=== PATIENT | male | born 1955 | race Caucasian/White ===

== ENCOUNTER → 2018-01-30 16:05 | Outpatient (CLI) | payer OTHER, SELFPAY ==
[2018-01-30 17:23] LABS: Absolute Lymphocyte Count 1.33 X10^3/ul (0.83-4.51); Absolute Neutrophil Count 3.2 X10^3/uL (2.0-7.7); Basophil# 0.02 X10^3/uL; Basophil% 0.4 % (0-1); Eosinophil# 0.04 X10^3/uL; Eosinophils% 0.8 % (0-5); Hematocrit 43.5 % (40-54); Hemoglobin 14.6 g/dl (13.0-16.5); Lymphocyte # 1.33 X10^3/ul (4.0); Lymphocyte % 27.1 % (19-41); Mean Corp Hgb Conc 33.6 g/gl (32-36); Mean Corpuscular Hgb 30.2 pg (27.0-32.0); Mean Corpuscular Volume 90.1 fL (80-94); Mean Platelet Vol. 10.8 fl (6.2-12.0); Monocyte# 0.32 X10^3/uL; Monocyte% 6.5 % (0-10); Neutrophil % 65.2 % (47-70); Platelet Count 146 K/mm3 (150-450); RBC Distribution Width CV 12.7 % (11.6-14.6); RBC Distribution Width SD 41.4 fl (35.1-43.9); Red Blood Count 4.83 M/mm3 (4.6-6.2); White Blood Count 4.9 K/mm3 (4.4-11.0)
[2018-01-30 17:30] LABS: ALB/GLOB Ratio 1.3 RATIO (0.9-2.4); AST(SGOT) 13 U/L (15-37); Alanine Aminotransfer ALT/SGPT 22 U/L (16-61); Albumin, Serum 3.9 g/dL (3.2-5.0); Alkaline Phosphatase 53 U/L (45-117); Anion Gap 5 (5-15); BUN 20 mg/dL (7-18); BUN/Creat Ratio 17.4 RATIO (10-20); Calcium,Total 8.8 mg/dL (8.5-10.1); Chloride 106 mmol/L (98-107); Creatinine, Serum 1.15 mg/dL (0.70-1.30); EST Glomerular Filtration Rate 69 mL/min (>60); Est Glom Filt Rate - Afr Amer 83 mL/min (>60); Globulin 3.1 g/dL (2.2-4.2); Glucose 87 mg/dL (74-106); Sodium Level 142 mmol/L (136-145)
[2018-01-30 17:40] LABS: POSITIVE COUNT NO; POSITIVE DIFFERENTIAL NO; POSITIVE MORPHOLOGY NO
[2018-01-30 17:54] LABS: Erythrocyte Sedimentation Rate < 1 mm/hr (0-20)
== END ==
PROVIDERS: Family Provider Family Medicine; PCP Family Medicine; Referring Provider Surgery; Visit Provider Surgery
DX: K62.5 Hemorrhage of anus and rectum (principal); R10.9 Unspecified abdominal pain
CPT/HCPCS: 36415; 80053; 85025; 85652

== ENCOUNTER 2018-02-04 09:54 | Day surgery (SDC) | payer OTHER, SELFPAY ==
[2018-02-04 10:42] VITALS: BP 127/82; PULSE 65; RESP 16; TEMP 36.4; O2SAT 100; BMI 24.6
[2018-02-04 11:48] VITALS: BP 110/70; BP 127/82; PULSE 60; RESP 14; TEMP 36.1; O2SAT 98
--- NOTE | 2018-02-04 11:51 | OP.ENDO_ITS ---
Patient Name: Talon Vail Procedure Date: 02/04/2018 11:11 AM Date of : 1955 Age: 62 Procedure: Colonoscopy Indications: Rectal bleeding Providers: Saad Mullen MD Medicines: See the Anesthesia note for documentation of the administered medications Patient Profile: Last Colonoscopy: 2010. Complications: No immediate complications. Procedure: Pre-Anesthesia Assessment: - Prior to the procedure, a History and Physical was performed, and patient medications and allergies were reviewed. The patient's tolerance of previous anesthesia was also reviewed. The risks and benefits of the procedure and the sedation options and risks were discussed with the patient. All questions were answered, and informed consent was obtained. Prior Anticoagulants: The patient has taken no previous anticoagulant or antiplatelet agents. ASA Grade Assessment: I - A normal, healthy patient. After reviewing the risks and benefits, the patient was deemed in satisfactory condition to undergo the procedure. After I obtained informed consent, the scope was passed under direct vision. Throughout the procedure, the patient's blood pressure, pulse, and oxygen saturations were monitored continuously. The pediatric colonoscope was introduced through the anus and advanced to the cecum, identified by appendiceal orifice and ileocecal valve. The colonoscopy was performed with moderate difficulty due to a tortuous colon. Successful completion of the procedure was aided by changing the patient to a supine position. The patient tolerated the procedure well. The quality of the bowel preparation was good. The ileocecal valve was photographed. Scope In: 11:26:13 AM Scope Withdrawal Time 0 hours 6 minutes 28 seconds Scope Out: 11:44:49 AM Total Procedure Duration Time 0 hours 18 minutes 36 seconds Findings: The digital rectal exam findings include non-thrombosed external hemorrhoids, non-thrombosed internal hemorrhoids and internal hemorrhoids that prolapse with straining, but require manual replacement into the anal canal (Grade III). Pertinent negatives include normal prostate (size, shape, and consistency). Multiple diverticula were found in the sigmoid colon and descending colon. The exam was otherwise without abnormality. Impression: - Non-thrombosed external hemorrhoids, non-thrombosed internal hemorrhoids and internal hemorrhoids that prolapse with straining, but require manual replacement into the anal canal (Grade III) found on digital rectal exam. - Diverticulosis in the sigmoid colon and in the descending colon. - The examination was otherwise normal. - No specimens collected. Recommendation: - Discharge patient to home. - Resume regular diet. - Continue present medications. - Repeat colonoscopy in 10 years for screening purposes. - Return to my office at appointment to be scheduled. - Refer to surgeon for a hemorrhoidectomy in 1 month. Procedure Code(s): --- Professional --- 59030, Colonoscopy, flexible; diagnostic, including collection of specimen(s) by brushing or washing, when performed (separate procedure) Diagnosis Code(s): --- Professional --- K64.2, Third degree hemorrhoids K64.4, Residual hemorrhoidal skin tags K62.5, Hemorrhage of anus and rectum K57.30, Diverticulosis of large intestine without perforation or abscess without bleeding CPT copyright 2017 [employer]. All rights reserved. The codes documented in this report are preliminary and upon supercharger mechanic review may be revised to meet current compliance requirements. Saad Mullen MD 02/04/2018 11:50:58 AM This report has been signed electronically. Number of Addenda: 0 Note Initiated On: 02/04/2018 11:11 AM
[2018-02-04 11:55] VITALS: BP 103/69; BP 127/82; PULSE 65; RESP 16; O2SAT 99
[2018-02-04 12:00] VITALS: BP 105/75; BP 127/82; PULSE 60; RESP 16; O2SAT 99
[2018-02-04 12:05] VITALS: BP 117/75; BP 127/82; PULSE 58; RESP 16; TEMP 36.2; O2SAT 99
[2018-02-04 12:33] VITALS: BP 127/82
== END 2018-02-04 12:34 | disposition home or self-care (01) ==
LOC: EN 09:55 → AC 10:30
PROVIDERS: Family Provider Family Medicine; PCP Family Medicine; Referring Provider Surgery; Visit Provider Surgery
PROC: 0DJD8ZZ Inspection of Lower Intestinal Tract, Via Natural or Artificial Opening Endoscopic (ICD-10-PCS; CPT 45378; principal; 2018-02-04 11:10)
DX: K64.2 Third degree hemorrhoids (principal); K64.4 Residual hemorrhoidal skin tags; K57.30 Diverticulosis of large intestine without perforation or abscess without bleeding; K21.9 Gastro-esophageal reflux disease without esophagitis; Z80.0 Family history of malignant neoplasm of digestive organs; Z85.830 Personal history of malignant neoplasm of bone
CPT/HCPCS: 45378; J7120

== ENCOUNTER → 2019-03-06 | Outpatient (CLI) | payer OTHER, SELFPAY ==
[2019-03-06 17:39] LABS: Hemoglobin 15.6 g/dL (13.0-16.5); Mean Corp Hgb Conc 33.2 g/dL (32-36); Mean Corpuscular Hgb 29.9 pg (27.0-32.0); Mean Corpuscular Volume 90.2 fL (80-94); Mean Platelet Vol. 10.2 fl (6.2-12.0); Platelet Count 160 K/mm3 (150-450); RBC Distribution Width CV 11.4 % (11.6-14.6); RBC Distribution Width SD 37.6 fl (35.1-43.9); Red Blood Count 5.21 M/mm3 (4.6-6.2); White Blood Count 5.9 K/mm3 (4.4-11.0)
--- NOTE | 2019-03-06 17:50 | RAD_ITS ---
STUDY: X-RAY - PELVIS AND RIGHT HIP REASON FOR EXAM: Male, 63 years old. Bone CA, thrombocytopenia TECHNIQUE: 3 views of the pelvis and hip. COMPARISON: None. FINDINGS: There is a non-specific bowel gas pattern. Normal visualized soft tissue structures. Normal bilateral iliac wings, sacroiliac joints and visualized sacrum. Normal bilateral superior and inferior pubic rami. Normal pubic symphysis. Normal bilateral ischial tuberosities. Normal visualized femoral head. Normal acetabulum. Normal hip joint. RAD/HIP, UNI W/ Pelvis 2-3 Views IMPRESSION: Normal x-ray examination of the pelvis and hip. Electronically Signed: Marcus Charlton DO at 18:06 EST Tel [phone], Service support ,
[2019-03-06 18:08] LABS: Alanine Aminotransfer ALT/SGPT 20 U/L (16-61); Bilirubin, Direct 0.13 mg/dL (0.00-0.30)
== END | disposition home or self-care (01) ==
PROVIDERS: Family Provider Family Medicine; PCP Family Medicine; Referring Provider Family Medicine; Visit Provider Family Medicine
DX: D69.6 Thrombocytopenia, unspecified (principal); C41.9 Malignant neoplasm of bone and articular cartilage, unspecified
CPT/HCPCS: 36415; 73502; 82248; 84460; 85027

== ENCOUNTER → 2020-10-27 16:04 | Outpatient (CLI) | payer OTHER, SELFPAY ==
[2020-10-27 16:08] LABS: Lyme Ab Screen Interpretation REF LAB
[2020-10-27 17:43] LABS: Absolute Lymphocyte Count 1.08 X10^3/uL (0.83-4.51); Absolute Neutrophil Count 2.4 X10^3/uL (2.0-7.7); Basophil# 0.02 X10^3/uL; Basophil% 0.5 % (0-1); Eosinophil# 0.05 X10^3/uL; Eosinophils% 1.3 % (0-5); Hematocrit 42.6 % (40-54); Hemoglobin 14.6 g/dL (13.0-16.5); Lymphocyte # 1.08 X10^3/ul (0.83-4.51); Lymphocyte % 27.7 % (19-41); Mean Corp Hgb Conc 34.3 g/dL (32-36); Mean Corpuscular Hgb 30.3 pg (27.0-32.0); Mean Corpuscular Volume 88.4 fL (80-94); Mean Platelet Vol. 10.5 fl (6.2-12.0); Monocyte# 0.31 X10^3/uL; Monocyte% 7.9 % (0-10); NRBC Flagged by Analyzer 0 % (0-5); Neutrophil # 2.44 X10^3/uL (2.7-7.7); Neutrophil % 62.6 % (47-70); Platelet Count 141 K/mm3 (150-450); RBC Distribution Width CV 12.1 % (11.6-14.6); RBC Distribution Width SD 39.7 fl (35.1-43.9); Red Blood Count 4.82 M/mm3 (4.6-6.2); White Blood Count 3.9 K/mm3 (4.4-11.0)
[2020-10-27 18:07] LABS: ALB/GLOB Ratio 1.3 RATIO (0.9-2.4); AST(SGOT) 20 U/L (15-37); Alanine Aminotransfer ALT/SGPT 21 U/L (16-61); Albumin, Serum 3.9 g/dL (3.2-5.0); Alkaline Phosphatase 59 U/L (45-117); Anion Gap 6 (5-15); BUN 19 mg/dL (7-18); BUN/Creat Ratio 16.5 RATIO (10-20); Calcium,Total 8.7 mg/dL (8.5-10.1); Chloride 106 mmol/L (98-107); Creatinine, Serum 1.15 mg/dL (0.70-1.30); EST Glomerular Filtration Rate 68 mL/min (>60); Est Glom Filt Rate - Afr Amer 83 mL/min (>60); Globulin 2.9 g/dL (2.2-4.2); Glucose 99 mg/dL (74-106); Potassium 3.8 mmol/L (3.5-5.1); Protein, Total 6.8 g/dL (6.4-8.2); Sodium Level 141 mmol/L (136-145)
[2020-10-29 18:47] LABS: Lyme Scn Total Ab w/Rflx <0.91 ISR (0.00-0.90)
== END ==
PROVIDERS: Visit Provider Family Medicine
DX: T14.8XXA Other injury of unspecified body region, initial encounter (principal)
CPT/HCPCS: 36415; 80053; 85025; 86618

== ENCOUNTER → 2021-09-16 | Outpatient (CLI) | payer OTHER, SELFPAY ==
[2021-09-16 17:42] LABS: Absolute Lymphocyte Count 1.13 X10^3/uL (0.83-4.51); Absolute Neutrophil Count 2.2 X10^3/uL (2.0-7.7); Basophil# 0.02 X10^3/uL; Basophil% 0.6 % (0-1); Eosinophil# 0.04 X10^3/uL; Eosinophils% 1.1 % (0-5); Hematocrit 41.8 % (40-54); Hemoglobin 14.4 g/dL (13.0-16.5); Lymphocyte # 1.13 X10^3/ul (0.83-4.51); Lymphocyte % 31.1 % (19-41); Mean Corp Hgb Conc 34.4 g/dL (32-36); Mean Corpuscular Hgb 30.6 pg (27.0-32.0); Mean Corpuscular Volume 88.7 fL (80-94); Mean Platelet Vol. 10.6 fl (6.2-12.0); Monocyte# 0.21 X10^3/uL; Monocyte% 5.8 % (0-10); NRBC Flagged by Analyzer 0 % (0-5); Neutrophil # 2.22 X10^3/uL (2.7-7.7); Neutrophil % 61.1 % (47-70); Platelet Count 145 K/mm3 (150-450); RBC Distribution Width CV 12.3 % (11.6-14.6); RBC Distribution Width SD 40.3 fl (35.1-43.9); Red Blood Count 4.71 M/mm3 (4.6-6.2); White Blood Count 3.6 K/mm3 (4.4-11.0)
[2021-09-16 18:07] LABS: ALB/GLOB Ratio 1.4 RATIO (0.9-2.4); AST(SGOT) 14 U/L (15-37); Alanine Aminotransfer ALT/SGPT 20 U/L (16-61); Albumin, Serum 3.9 g/dL (3.2-5.0); Alkaline Phosphatase 51 U/L (45-117); Anion Gap 6 (5-15); BUN 16 mg/dL (7-18); BUN/Creat Ratio 14.3 RATIO (10-20); Calcium,Total 8.7 mg/dL (8.5-10.1); Chloride 109 mmol/L (98-107); Cholesterol 133 mg/dL (200); Creatinine, Serum 1.12 mg/dL (0.70-1.30); EST Glomerular Filtration Rate 70 mL/min (>60); Est Glom Filt Rate - Afr Amer 85 mL/min (>60); Globulin 2.8 g/dL (2.2-4.2); Glucose 89 mg/dL (74-106); High Density Lipoprotein 45 mg/dL; PSA,Total - Annual Screen 1.63 ng/mL (0.00-4.00); Potassium 3.7 mmol/L (3.5-5.1); Protein, Total 6.7 g/dL (6.4-8.2); Sodium Level 142 mmol/L (136-145); Triglycerides 87 mg/dL; Very Low Density Lipoprotein 17 mg/dL (5-40)
== END | disposition home or self-care (01) ==
LOC: MTLAB 16:06
PROVIDERS: PCP Family Medicine; Referring Provider Family Medicine; Visit Provider Family Medicine
DX: D69.6 Thrombocytopenia, unspecified (principal); Z13.220 Encounter for screening for lipoid disorders; Z12.5 Encounter for screening for malignant neoplasm of prostate
CPT/HCPCS: 36415; 80053; 80061; 84153; 85025; G0103

== ENCOUNTER → 2021-09-20 | Outpatient (CLI) | payer OTHER, SELFPAY ==
--- NOTE | 2021-09-20 16:08 | RAD_ITS ---
STUDY: X-RAY CHEST REASON FOR EXAM: Male, 66 years old. Asbestos exposure. TECHNIQUE: PA and lateral views of the chest. COMPARISON: None. FINDINGS: No focal infiltrates or effusions. No pneumothorax. Lungs are hyperinflated. No pleural plaques. No densities to suggest chronic interstitial lung disease. Normal size heart. Normal mediastinum and christophe. Normal visualized pulmonary arteries. Normal visualized aortic arch and descending thoracic aorta. Normal visualized thoracic spine. Postsurgical changes right shoulder. There is no demonstrated abnormality of the visualized soft tissue structures of the upper abdomen. RAD/Chest PA and Lateral IMPRESSION: Hyperinflation. No focal infiltrates or effusions. No pleural plaques. Electronically Signed: Jarrell Still MD at 5:48 EDT Reading Location ID and State: [id number] / , Service support ,
== END | disposition home or self-care (01) ==
LOC: MTRAD 16:06
PROVIDERS: PCP Family Medicine; Referring Provider Family Medicine; Visit Provider Family Medicine
DX: Z77.090 Contact with and (suspected) exposure to asbestos (principal)
CPT/HCPCS: 71046

== ENCOUNTER 2022-09-24 07:01 | Observation (INO) | payer OTHER, MEDICARE, SELFPAY ==
[2022-09-24] VITALS (10 sets, daily range): BP systolic 113–144; BP diastolic 75–87; PULSE 50–84; RESP 14–18; TEMP 35.2–36.8; O2SAT 96–100; BMI 25.9
--- NOTE | 2022-09-24 07:22 | EKG12_ITS ---
Test Reason : DIZZINESS Blood Pressure : / mmHG Vent. Rate : 055 BPM Atrial Rate : 055 BPM P-R Int : 150 ms QRS Dur : 088 ms QT Int : 450 ms P-R-T Axes : 064 036 050 degrees QTc Int : 430 ms Sinus bradycardia Otherwise normal ECG Confirmed by SEDRICK LOW, ORION ([id number]), metropolitan editor MANN CABRERA ([id number]) on 09/25/2022 11:37:03 AM Referred By: Confirmed By:ORION DUBOSE MD
--- NOTE | 2022-09-24 07:24 | EDS_ITS ---
HPI History of Present Illness Chief Complaint: Dizziness Narrative Narrative: 67-year-old male who denies significant past medical history presents with his because of dizziness since this morning. He states that over the last 5 days, he has had intermittent episodes of the room spinning and dizziness. States he had blurred vision out of both eyes with this. He has been practicing yoga and 5 days ago may have been doing certain positions. 3 days ago, he states he was watching TV, and he had blurred vision and dizziness. Yesterday, when he went to bed, he stated everything was fine. When he awoke this morning, he had blurry vision out of the clock. He felt unsteady in his gait and felt like the room was spinning. He became nauseated with this but denies any chest pain or shortness of breath. His gave him an aspirin, but he states that he may have vomited or dry heaves afterwards. He denies any paresthesias, no other symptoms but he felt like he was having nystagmus with his vision. [facility] Medical History (Updated 09/24/22 @ 09:59 by Surendra Man MD) Abdominal pain Rectal bleeding Home Medications ibuprofen 200 mg capsule 200 - 600 mg PO QWEEK pain 01/30/18 [History Last Taken Unknown] Allergy/AdvReac Type Severity Reaction Status Date / Time No Known Allergies Allergy Unverified 01/31/18 10:02 Family History Father Hypertension Mother Breast cancer Hypertension Brother CAD (coronary artery disease) Hypertension Surgical History Partial traumatic metacarpophalangeal amputation of finger S/P rotator cuff repair Social History Smoking Status: Never smoker alcohol intake: current alcohol intake frequency: a few times a month ROS ROS ED ROS Narrative Constitutional: No fever, no chills. HEENT: No sore throat. No neck pain. No loss of vision. No rhinorrhea. Cardiovascular: No chest pain. No palpitations. No pedal edema. Respiratory: No cough, no shortness of breath. Abdominal: No abdominal pain. Positive nausea. Positive dry heaving/vomiting. Genitourinary: No dysuria. No hematuria. Musculoskeletal: No myalgias. No arthralgias. Neurologic: No headaches. Positive dizziness. No lightheadedness. Off balance and unsteady gait. No paresthesias. Skin: No rash. No change in color. Psychiatric: No depression. No anxiety. EXAM Physical Exam Narrative Exam Narrative: Afebrile. Vital signs noted. HEENT: Normocephalic. Atraumatic. PERRL, EOMI. Neck soft and supple. No point tenderness or step off. Cardiovascular: Regular rate and rhythm. No murmurs, rubs, or gallops appreciated. Respiratory: No tachypnea. Lungs clear to auscultation bilaterally. Gastrointestinal: Abdomen soft, nontender, with normoactive bowel sounds. No rebound or guarding. Neurological: Awake. Alert. Nonfocal, nonlateralizing. Normal [id number]. Fatigable nystagmus, dizziness when looking towards the right. Skin: No rash. Normal color. No pallor. Musculoskeletal: No pedal edema. Full range of motion extremities. Const Vital Signs: 09/24/22 07:02 09/24/22 07:27 Temperature 95.3 F L Temperature Source Temporal Pulse Rate 63 Respiratory Rate 18 Respiratory Effort Normal Non-Labored Respiratory Pattern Normal Blood Pressure 144/77 H Blood Pressure Mean 99 Pulse Ox 100 Oxygen Delivery Method Room Air MDM MDM MDM Narrative Medical decision making narrative: I reviewed the patient's prior records. He has no contributory factors to his chief complaint today. Concern would be for cerebellar stroke. Given that his symptoms actually began 5 days ago, I do not feel that stroke team is indicated. Additionally, he has an NIH stroke scale of 0. Concern would be for cerebellar stroke or vertebral artery dissection. CT imaging including CTA of the head and neck will be obtained additionally with baseline laboratories. Also in the differential diagnosis would be acute coronary syndrome. I will obtain an EKG and single troponin as it has been greater than 6 hours since his symptoms had started but have become more constant overnight. I reviewed the patient's laboratory work, he has a chronic neutropenia of 3.8, states its been like that for the majority of his life. He has a normal hemoglobin of 14.5, hematocrit 43.3, platelet count slightly low at 138 which I think is nonspecific. Chloride is elevated at 110 with glucose appropriately elevated at 129 with a low anion gap of 4. LFTs are grossly unremarkable. CT of the brain and CTA of the head and neck radiology report was reviewed which shows it to be within normal limits and no significant stenosis or clot. After meclizine and Zofran, patient is unable to ambulate and started throwing up when he got up to go to the bathroom. At this point in time, given his inability to ambulate, patient was discussed with Dr. Escobedo for observation in the PCU. There is less concern for posterior circulation stroke, but given his inability to ambulate and continued vertigo, he will be assigned to observation on the PCU. Patient is in stable condition. History & Record Review Discussion w/independent historian: Patient and Family Additional record(s) reviewed:: Prior ED visit Lab Data Attestation: I reviewed the patient's lab results. Labs: Laboratory Results - last 24 hr 09/24/22 09/24/22 07:30 07:30 WBC 3.8 L RBC 4.82 Hgb 14.5 Hct 43.3 MCV 89.8 MCH 30.1 MCHC 33.5 RDW Std Deviation 41.1 RDW Coeff of Jeff 12.6 Plt Count 138 L MPV 10.7 Immature Gran % (Auto) 0.000 Neut % (Auto) 58.3 Lymph % (Auto) 33.2 [place] % (Auto) 5.6 Eos % (Auto) 2.4 Baso % (Auto) 0.5 Absolute Neuts (auto) 2.2 Absolute Lymphs (auto) 1.25 Nucleated RBC % 0 Sodium 142 Potassium 3.8 Chloride 110 H Carbon Dioxide 28.0 Anion Gap 4 L BUN 20 H Creatinine 1.12 Est GFR (MDRD) Af Amer 85 Est GFR (MDRD) Non-Af 70 BUN/Creatinine Ratio 17.9 Glucose 129 H Calcium 8.4 L Total Bilirubin 0.50 AST 21 ALT 18 Alkaline Phosphatase 51 Troponin I High Sens 5 Total Protein 6.4 Albumin 3.6 Globulin 2.8 Albumin/Globulin Ratio 1.3 Radiography Diagnostic Testing: Clinical Impression(s) from Imaging Studies Head/Neck CTA 09/24/22 07:27 IMPRESSION: Within normal limits CT Brain, CTA Carotid, and CTA Brain. Electronically Signed: Audelia Burns MD at 8:58 EDT , Discharge Plan Dx/Rx/DC Orders Clinical Impression: Vertigo, Nausea & vomiting, Inability to walk Disposition Disposition: Acute Care Hospital [facility]
--- NOTE | 2022-09-24 07:27 | CT_ITS ---
INDICATION: Dizziness EXAMINATION: CT BRAIN WITH CONTRAST TECHNIQUE: Noncontrast axial images were obtained of the brain. Subsequently, routine carotid CT angiogram protocol was performed without and with IV contrast. In addition, images were obtained of the [place] of [place]. NASCET criteria using the distal ICAs for comparison were used for evaluation of stenoses. 3D reconstructions were reviewed. A radiation dose optimization technique was used for this scan. IV Contrast dosage and agent: COMPARISON: None. FINDINGS: --CT BRAIN: BRAIN PARENCHYMA: No intra- or extra-axial hemorrhage. No evidence of acute infarct. No intracranial mass or mass effect. There is preservation of the lemus/white matter interface. Posterior fossa structures are unremarkable. CSF SPACES: Appropriate for age. No hydrocephalus. Basal cisterns are patent. CALVARIUM, SKULL BASE, PARANASAL SINUSES AND MASTOID AIR CELLS: Clear. No discrete lytic or blastic abnormalities. ASPECTS Score for Acute Strokes: 10 --CTA NECK: AORTIC ARCH AND BRANCHES: Normal anatomy, patent. RIGHT CCA: No occlusion, significant stenosis or dissection. RIGHT ICA: No occlusion, significant stenosis or dissection. LEFT CCA: No occlusion, significant stenosis or dissection. LEFT ICA: No occlusion, significant stenosis or dissection. RIGHT VERTEBRAL ARTERY: No occlusion, significant stenosis or dissection. LEFT VERTEBRAL ARTERY: No occlusion, significant stenosis or dissection. NECK SOFT TISSUES: Unremarkable. --CTA HEAD: --Anterior circulation: ICAs: No significant stenosis at the intracranial/visualized segments. ACAs: No significant stenosis at the visualized segments. ACOM: Present. MCAs: No significant stenosis at the visualized segments. --Posterior circulation: PCOMs: Within normal limits. dietary aide: No significant stenosis at the visualized segments. BASILAR ARTERY: No significant stenosis. VERTEBRAL ARTERIES: No significant stenosis at the intradural/visualized segments. No evidence of intracranial aneurysm or vascular malformation. CT/CTA Head AND Neck W/ Contrast IMPRESSION: Within normal limits CT Brain, CTA Carotid, and CTA Brain. Electronically Signed: Audelia Burns MD at 8:58 EDT ,
[2022-09-24] MEDS: 0.9% Normal Saline 1,000 ML 1000 ML IV (07:33)
[2022-09-24] MEDS: Meclizine HCl 25 MG Tablet PO (07:33)
[2022-09-24 07:41] LABS: Absolute Lymphocyte Count 1.25 X10^3/uL (0.83-4.51); Absolute Neutrophil Count 2.2 X10^3/uL (2.0-7.7); Basophil# 0.02 X10^3/uL; Basophil% 0.5 % (0-1); Eosinophil# 0.09 X10^3/uL; Eosinophils% 2.4 % (0-5); Hematocrit 43.3 % (40-54); Hemoglobin 14.5 g/dL (13.0-16.5); Lymphocyte # 1.25 X10^3/ul (0.83-4.51); Lymphocyte % 33.2 % (19-41); Mean Corp Hgb Conc 33.5 g/dL (32-36); Mean Corpuscular Hgb 30.1 pg (27.0-32.0); Mean Corpuscular Volume 89.8 fL (80-94); Mean Platelet Vol. 10.7 fl (6.2-12.0); Monocyte# 0.21 X10^3/uL; Monocyte% 5.6 % (0-10); NRBC Flagged by Analyzer 0 % (0-5); Neutrophil # 2.19 X10^3/uL (2.7-7.7); Neutrophil % 58.3 % (47-70); Platelet Count 138 K/mm3 (150-450); RBC Distribution Width CV 12.6 % (11.6-14.6); RBC Distribution Width SD 41.1 fl (35.1-43.9); Red Blood Count 4.82 M/mm3 (4.6-6.2); White Blood Count 3.8 K/mm3 (4.4-11.0)
[2022-09-24 08:00] LABS: ALB/GLOB Ratio 1.3 RATIO (0.9-2.4); AST(SGOT) 21 U/L (15-37); Alanine Aminotransfer ALT/SGPT 18 U/L (16-61); Albumin, Serum 3.6 g/dL (3.2-5.0); Alkaline Phosphatase 51 U/L (45-117); Anion Gap 4 (5-15); BUN 20 mg/dL (7-18); BUN/Creat Ratio 17.9 RATIO (10-20); Calcium,Total 8.4 mg/dL (8.5-10.1); Chloride 110 mmol/L (98-107); Creatinine, Serum 1.12 mg/dL (0.70-1.30); EST Glomerular Filtration Rate 70 mL/min (>60); Est Glom Filt Rate - Afr Amer 85 mL/min (>60); Globulin 2.8 g/dL (2.2-4.2); Glucose 129 mg/dL (74-106); Potassium 3.8 mmol/L (3.5-5.1); Protein, Total 6.4 g/dL (6.4-8.2); Sodium Level 142 mmol/L (136-145); Troponin-I HS 5 pg/mL (3.0-78.0)
[2022-09-24] MEDS: Ondansetron 4 MG/2 ML Vial IV (08:08)
--- NOTE | 2022-09-24 11:05 | PCM.HP.STD ---
HPI - General General Date of Admission: 09/24/22 Date of Service: 09/24/22 Chief Complaint: Dizziness vertigo, unsteady gait today. HPI Narrative DUTCH VELEZ, is a 67 M Came to ED with his who is RN plaints of dizziness, nausea, blurred vision and room spinning. This started in the morning and felt like blurry vision in the clock. He also felt his eyes were dancing. He was also off balance/unsteady gait and diplopia. Similar episode happened about 5 days ago while he was practicing yoga and stretching on the bar. He felt like he also passed for few seconds but he came right back. He is very healthy and not on any home medication. He has some chronic neck muscle and lower back muscle soreness. Denies any prior history of stroke, CO/coronary artery disease or peripheral arterial disease. In ED, his vitals are in normal range. No fever or chills or signs and symptoms of infection. CT head and CTA head and neck was done which did not show any acute abnormality. Patient is still has nystagmus. [facility] Medical History Abdominal pain Rectal bleeding Home Medications ibuprofen 200 mg capsule 200 - 600 mg PO QWEEK pain 01/30/18 [History Last Taken Unknown] Allergy/AdvReac Type Severity Reaction Status Date / Time No Known Allergies Allergy Unverified 01/31/18 10:02 Family History Father Hypertension Mother Breast cancer Hypertension Brother CAD (coronary artery disease) Hypertension Surgical History Partial traumatic metacarpophalangeal amputation of finger S/P rotator cuff repair Social History Smoking Status: Never smoker alcohol intake: current alcohol intake frequency: a few times a month ROS ROS Narrative Constitutional: No fever. Denies chronic fatigue or illness. HEENT: Describe detailed in HPI. Reports systems reviewed and no addt'l complaints, except as documented Respiratory/Chest: No acute shortness of breath or respiratory distress or wheezing. CVS: No chest pain pressure or tightness. Gastrointestinal: Denies coffee ground emesis, hematemesis or vomiting Genitourinary: Denies burning urination or new urinary tract symptoms Musculoskeletal: Denies acute joint pain or limited range of motion. No acute injury Neurologic: Denies seizure-like symptoms. No previous stroke. skin: No ulcer. No rash Endocrinology: Reports systems reviewed and no addt'l complaints, except as documented Hematologic/Lymphatic: Reports systems reviewed and no addt'l complaints, except as documented Rest 14 ROS are negative except as mentioned in HPI Vital Signs Vital Signs Vital Signs: 09/24/22 07:02 09/24/22 07:27 Temperature 95.3 F L Temperature Source Temporal Pulse Rate 63 Respiratory Rate 18 Respiratory Effort Normal Non-Labored Respiratory Pattern Normal Blood Pressure 144/77 H Blood Pressure Mean 99 Pulse Ox 100 Oxygen Delivery Method Room Air Physical Exam Narrative Physical exam: General: Alert, Oriented x3, Cooperative HEENT: Atraumatic, PERRLA, EOMI, Normocephalic. Diplopia on extreme right gaze. Nystagmus, fast component left side. Oral: Oral mucosa moist no Gingival or Mucosal Lesions/ Ulcerations Neck: Supple, No JVD, Negative Carotid Bruits Lungs: Air entry equal in bilateral lung bases. No crepitation/rhonchi Cardiovascular: Regular rate, Regular Rhythm, Normal S1, Normal S2, No murmurs Abdomen: Bowel Sounds Present, Soft, Non Tender, Non-Distended : No renal angle tenderness. No suprapubic tenderness. Extremities: No edema, Capillary Refill Less than 3 Seconds Skin: No rashes, No breakdown Musculoskeletal: No Tenderness to Palpation of Joints or Extremities. Muscle strength 5/5 at major joints. Neurological: Cranial nerves II-XII grossly intact, DTR 2+/4 and Symmetrical, no facial droop. NIHSS 0. Psych/Mental Status: Normal Affect, Appropriate. Results Lab / Micro Data Result Diagrams: 09/24/22 07:30 09/24/22 07:30 Labs: Laboratory Results - last 24 hr 09/24/22 07:30: WBC 3.8 L, RBC 4.82, Hgb 14.5, Hct 43.3, MCV 89.8, MCH 30.1, MCHC 33.5, RDW Std Deviation 41.1, RDW Coeff of Jeff 12.6, Plt Count 138 L, MPV 10.7, Immature Gran % (Auto) 0.000, Neut % (Auto) 58.3, Lymph % (Auto) 33.2, [place] % (Auto) 5.6, Eos % (Auto) 2.4, Baso % (Auto) 0.5, Absolute Neuts (auto) 2.2, Absolute Lymphs (auto) 1.25, Nucleated RBC % 0 09/24/22 07:30: Sodium 142, Potassium 3.8, Chloride 110 H, Carbon Dioxide 28.0, Anion Gap 4 L, BUN 20 H, Creatinine 1.12, Est GFR (MDRD) Af Amer 85, Est GFR (MDRD) Non-Af 70, BUN/Creatinine Ratio 17.9, Glucose 129 H, Calcium 8.4 L, Total Bilirubin 0.50, AST 21, ALT 18, Alkaline Phosphatase 51, Troponin I High Sens 5, Total Protein 6.4, Albumin 3.6, Globulin 2.8, Albumin/Globulin Ratio 1.3 Radiology Impression Head/Neck CTA 09/24/22 07:27 IMPRESSION: Within normal limits CT Brain, CTA Carotid, and CTA Brain. Electronically Signed: Audelia Burns MD at 8:58 EDT , Assessment & Plan Assessment/Plan (1) Vertigo: PLAN: Plan This is 67-year-old gentleman healthy lifestyle came to ED for acute onset of dizziness, nausea and lightheadedness, nystagmus, unsteady gait, diplopia and vertigo 1. Vertigo, unsteady gait seems peripheral vertigo, rule out cerebellar lesion/stroke: Patient is being admitted in PCU. NIH stroke scale 0. EKG shows sinus bradycardia 55 bpm, OH 150 ms, QTc [address] brain, CTA head and neck within normal limit. MRI head and 2D echo tomorrow AM. PT, OT, speech therapy/swallow evaluation and management, nursing NIH stroke scale, BP and glucose monitoring and control as per stroke protocol. TSH, A1c AND fasting lipid profile tomorrow AM. MRI brain and 2D echo with bubble contrast study ordered. IV fluid normal saline 75 mill per hour for 1 L. ABG aspirin and high intensity statin ordered. Serum magnesium ordered. 2. Mild hyperglycemia, glucose 129: A1c tomorrow AM. Patient does not have a history of diabetes mellitus. 3. Chronic neck muscle and lumbar muscle/paraspinal soreness, possible onset of degenerative arthritis: Denies any acute onset. PT and OT. VTE prophylaxis moderate risk: Heparin subcu ordered. Living will/advanced directive/end of life care: Patient does not have living will or advanced directive. After discussion of benefits/risks procedures involved with full code, DNR CC arrest and DNR CC, the patient and his , RN opted for full code. Patient does want artificial life support including intubation, tube feed, ventilator and/chest compression, central venous catheter, vasopressor and DC shock if needed Total time spent in [id number] encounter in discussion of advanced directive 17 minutes. Laboratory Results 09/24/22 07:30: WBC 3.8 L, RBC 4.82, Hgb 14.5, Hct 43.3, MCV 89.8, MCH 30.1, MCHC 33.5, RDW Std Deviation 41.1, RDW Coeff of Jeff 12.6, Plt Count 138 L, MPV 10.7, Immature Gran % (Auto) 0.000, Neut % (Auto) 58.3, Lymph % (Auto) 33.2, [place] % (Auto) 5.6, Eos % (Auto) 2.4, Baso % (Auto) 0.5, Absolute Neuts (auto) 2.2, Absolute Lymphs (auto) 1.25, Nucleated RBC % 0 09/24/22 07:30: Sodium 142, Potassium 3.8, Chloride 110 H, Carbon Dioxide 28.0, Anion Gap 4 L, BUN 20 H, Creatinine 1.12, Est GFR (MDRD) Af Amer 85, Est GFR (MDRD) Non-Af 70, BUN/Creatinine Ratio 17.9, Glucose 129 H, Calcium 8.4 L, Total Bilirubin 0.50, AST 21, ALT 18, Alkaline Phosphatase 51, Troponin I High Sens 5, Total Protein 6.4, Albumin 3.6, Globulin 2.8, Albumin/Globulin Ratio 1.3 09/24/22 07:30: Magnesium Pending Clinical Impression(s) from Imaging Studies Head/Neck CTA 09/24/22 07:27 IMPRESSION: Within normal limits CT Brain, CTA Carotid, and CTA Brain. Electronically Signed: Audelia Burns MD at 8:58 EDT , Charges/Coding Visit Charges Inpatient E&M: 99005 Init Hosp L3 Procedures Hospitalists Procedures: 22459 Advncd Care Plan 30 Min
[2022-09-24 11:19] LABS: Magnesium 2.1 mg/dL (1.6-2.6)
[2022-09-24 11:34] LABS: Phosphorus 3.1 mg/dL (2.5-4.9)
[2022-09-24] MEDS: 0.9% Normal Saline 1,000 ML 75 ML IV (12:04)
[2022-09-24 12:31] LABS: Bedside Glucose 95 mg/dL (74-106)
--- NOTE | 2022-09-24 18:25 | NURSING ---
1430- patient ate soup, applesauce, and a few chips , felt ok after. 1820- patient nauseated, head of bed sat up and pt vomited large amt of food residue.
[2022-09-24] MEDS: 0.9% Saline Lock 10 ML Syringe IV (18:28)
[2022-09-24] MEDS: proCHLORPERazine 10 MG/2 ML Vial 5 MG IV (18:28)
[2022-09-24 20:32] LABS: Bedside Glucose 111 mg/dL (74-106)
[2022-09-24] MEDS: Heparin Injection (Vial) 5,000 UNIT/ML VIAL 5000 UNIT SC (21:18)
[2022-09-24] MEDS: Atorvastatin Calcium 80 MG Tablet PO (21:19)
[2022-09-25 00:31] LABS: Bedside Glucose 95 mg/dL (74-106)
[2022-09-25 03:00] VITALS: BP 113/71; PULSE 52; RESP 12; TEMP 36.6; O2SAT 97
[2022-09-25 03:03] VITALS: BMI 25.9
--- NOTE | 2022-09-25 05:55 | ECHOD_ITS ---
Reason For Study: CVA Procedure This was a 2D Doppler, Color Flow transthoracic echocardiogram. Exam performed portable in patient room. Left Ventricle Normal LV size. Left ventricular systolic function is normal. The estimated ejection fraction is 65 %. Normal diastology for age. No regional wall motion abnormalities noted. Right Ventricle Normal RV size. Normal systolic function. Atria Normal left atrium. Normal right atrium. Bubble contrast study negative for right to left interatrial shunt. Mitral Valve Normal mitral valve. Tricuspid Valve Normal tricuspid valve. Mild tricuspid valve insufficiency. Pulmonary artery systolic pressure is 26 mmHg. Aortic Valve Trisinus/trileaflet aortic valve. Pulmonic Valve Normal pulmonic valve. Great Vessels Normal aortic root. The pulmonary artery is normal size. Normal inferior vena cava. Pericardium/Pleural No pericardial effusion. Medication Performed a rapid injection of agitated mix of 9 cc saline and 1cc air to assess for atrial septal defect. MMode/2D Measurements & Calculations LVIDd: 4.1 cm IVSd: 1.0 cm Ao root diam: 3.4 cm LVIDs: 2.8 cm LVPWd: 0.88 cm RVDd: 3.8 cm FS: 33.5 % LAV(MOD-bp): 51.5 ml LVAd ap4: 34.1 cm2 LVAd ap2: 26.5 cm2 LAV(MOD-bp) Indexed: 25.8 ml/m2 LVLd ap4: 8.6 cm LVLd ap2: 7.4 cm LAV(MOD-sp2): 40.9 ml EDV(MOD-sp4): 111.0 ml EDV(MOD-sp2): 79.9 ml LAV(MOD-sp4): 53.2 ml EDV(sp4-el): 114.3 ml EDV(sp2-el): 80.2 ml LVAs ap4: 18.3 cm2 LVAs ap2: 16.0 cm2 LVLs ap4: 7.4 cm LVLs ap2: 7.4 cm ESV(MOD-sp4): 39.2 ml ESV(MOD-sp2): 30.0 ml ESV(sp4-el): 38.7 ml ESV(sp2-el): 29.6 ml EF(MOD-sp4): 64.7 % EF(MOD-sp2): 62.5 % EF(sp4-el): 66.2 % SV(MOD-sp4): 71.8 ml SV(MOD-sp2): 49.9 ml SV(sp4-el): 75.7 ml LA A4 area: 18.1 cm2 LA dimension(2D): 3.2 cm RA A4 area: 19.4 cm2 TAPSE: 2.8 cm Time Measurements MV dec time: 0.19 sec Doppler Measurements & Calculations MV E max chato: 95.3 cm/sec Lat Peak E' Chato: 12.5 cm/sec Med Peak E' Chato: 11.7 cm/sec MV A max chato: 67.8 cm/sec E/E' lat: 7.6 E/E' med: 8.1 MV E/A: 1.4 Ao V2 max: 138.2 cm/sec LV V1 max: 100.1 cm/sec MV dec slope: 508.2 cm/sec2 Ao max P.6 mmHg LV V1 max P.0 mmHg Ao V2 mean: 95.6 cm/sec LV V1 mean P.1 mmHg Ao mean P.2 mmHg LV V1 mean: 67.9 cm/sec Ao V2 VTI: 33.5 cm LV V1 VTI: 22.7 cm AV (velocity ratio): 0.68 PA V2 max: 99.2 cm/sec TR max chato: 239.9 cm/sec PA V2 mean: 70.9 cm/sec TR max P.0 mmHg ECHO/Echo Complete Interpretation Summary Normal LV size. Left ventricular systolic function is normal. The estimated ejection fraction is 65 %. Pulmonary artery systolic pressure is 26 mmHg. Bubble contrast study negative for right to left interatrial shunt. Ordering Physician: Jorge Escobedo Referring Physician: Mike Coates MD Performed By: Kalani Isidro RDCS and Student
[2022-09-25 06:38] LABS: Bedside Glucose 91 mg/dL (74-106)
[2022-09-25 07:20] VITALS: O2SAT 98
[2022-09-25 07:28] LABS: Absolute Lymphocyte Count 1.16 X10^3/uL (0.83-4.51); Absolute Neutrophil Count 3.3 X10^3/uL (2.0-7.7); Basophil# 0.02 X10^3/uL; Basophil% 0.4 % (0-1); Eosinophil# 0.03 X10^3/uL; Eosinophils% 0.6 % (0-5); Hematocrit 43.2 % (40-54); Hemoglobin 14.5 g/dL (13.0-16.5); Lymphocyte # 1.16 X10^3/ul (0.83-4.51); Lymphocyte % 24.4 % (19-41); Mean Corp Hgb Conc 33.6 g/dL (32-36); Mean Corpuscular Hgb 30.2 pg (27.0-32.0); Mean Platelet Vol. 10.9 fl (6.2-12.0); Monocyte# 0.22 X10^3/uL; Monocyte% 4.6 % (0-10); NRBC Flagged by Analyzer 0 % (0-5); Neutrophil # 3.32 X10^3/uL (2.7-7.7); Neutrophil % 69.8 % (47-70); Platelet Count 137 K/mm3 (150-450); RBC Distribution Width CV 12.7 % (11.6-14.6); RBC Distribution Width SD 41.4 fl (35.1-43.9); White Blood Count 4.8 K/mm3 (4.4-11.0)
[2022-09-25 07:57] VITALS: BP 139/83; PULSE 71; RESP 18; TEMP 36.4; O2SAT 98
[2022-09-25] MEDS: Aspirin 81 MG TAB.CHEW PO (08:01)
[2022-09-25 08:51] LABS: Anion Gap 5 (5-15); BUN 14 mg/dL (7-18); BUN/Creat Ratio 13.5 RATIO (10-20); Calcium,Total 8.8 mg/dL (8.5-10.1); Chloride 110 mmol/L (98-107); Cholesterol 153 mg/dL (200); Creatinine, Serum 1.04 mg/dL (0.70-1.30); EST Glomerular Filtration Rate 76 mL/min (>60); Est Glom Filt Rate - Afr Amer 92 mL/min (>60); Estimated Creatinine Clearance 73.12 ml/min; Glucose 99 mg/dL (74-106); High Density Lipoprotein 41 mg/dL; Potassium 3.4 mmol/L (3.5-5.1); Sodium Level 142 mmol/L (136-145); Thyroid Stim Hormone (TSH) 1.66 uIU/mL (0.358-3.74); Triglycerides 110 mg/dL; Very Low Density Lipoprotein 22 mg/dL (5-40)
[2022-09-25 09:20] LABS: Hemoglobin A1c 5.2 % (3.8-5.6)
[2022-09-25 10:00] VITALS: BP 136/83; PULSE 52; RESP 16; TEMP 36.5; O2SAT 100
--- NOTE | 2022-09-25 10:04 | CASEMGMT ---
RN REMI NOTE: Intro role of CM to patient and [facility] form explained re: Observation status for treatment of dizziness.? @ bedside. Explained hospitalization will be paid per?his insurance policy for Outpatient billing?and condition will continue to be evaluated for Inpt necessity. Also let pt and know that [facility] sends paper in the billing packet with their phone number if questions arise. Discussed Pharmacy section of [facility] form and self administered medication guideline.? Pt and verbalize understanding and do not have further questions. ?Form signed, copy made and placed in chart, and original given to pt and . Estefanía RUIZ RN CM
--- NOTE | 2022-09-25 11:13 | MRI_ITS ---
EXAM: MR HEAD WITHOUT INTRAVENOUS CONTRAST CLINICAL INDICATION: CVA, blurred vision, feels like and quot;eyes are dancing and quot; x 1 day, resolved now TECHNIQUE: Multiplanar and multisequence MR images of the brain were obtained without intravenous contrast. COMPARISON: ct 09.24.22. FINDINGS: BRAIN AND EXTRA-AXIAL SPACES: Unremarkable. No intra- or extra-axial hemorrhage. No evidence of acute infarct. No intracranial mass or mass effect. There is preservation of the lemus/white matter interface. Posterior fossa structures are unremarkable. Ventricles are appropriate for age. No hydrocephalus. Basal cisterns are patent. SELLA: Unremarkable. Normal sella turcica, pituitary gland, infundibular stalk, optic chiasm and hypothalamus. AUDITORY SYSTEM: Unremarkable. The internal auditory canals are patent. BONES/JOINTS: Unremarkable. No discrete lytic or blastic abnormalities. SINUSES: There is a mucous retention cyst and/or polyp of the left maxillary sinus. MASTOID AIR CELLS: Unremarkable as visualized. Clear. ORBITS: Unremarkable as visualized. Both globes, extraocular muscles, optic nerves and retrobulbar fat appear unremarkable. VASCULATURE: Unremarkable as visualized. Normal flow voids in the major intracranial circulation. MRI/Brain without Contrast IMPRESSION: No acute findings in the head/brain. Electronically Signed: Herman Yadav MD at 16:47 EDT ,
--- NOTE | 2022-09-25 12:35 | DCINST_ITS ---
Discharge Instructions Diet Discharge Diet: No restrictions Dressing / Incision Call your doctor if you observe: Fever of 101 or Higher, Shortness of breath, Dizziness, Fainting spells, Swelling in the ankles, Chest pain and Increased palpitations (irregular heartbeat) Follow Up Care Test Results: Test results from this visit will be discussed in further detail at your follow- up appointment, if applicable. Discharge Plan Admission Admit Date/Time: 09/24/22 10:11 Attending Provider: Robert Madison Primary Care Provider: Mike Coates Consulting Providers: Jorge Escobedo Discharge Orders/Prescriptions Prescriptions: New meclizine 25 mg tablet 25 mg PO BID PRN (Reason: dizziness) Qty: 14 0RF Continued ibuprofen 200 mg capsule 200 - 600 mg PO QWEEK Referrals / Follow Up: Mike Coates MD [Primary Care Provider] - Within 1 Week Disposition Disposition (needs filled in before D/C Order can be placed): Home, Self Care
--- NOTE | 2022-09-25 14:10 | DS.PCM_ITS ---
Providers Date of Admission: 09/24/22 Primary Care Physician: Dr. 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 This started in the morning and felt like blurry vision in the clock.? He also felt his eyes were dancing.? He was also off balance/unsteady gait and diplopia.? Similar episode happened about 5 days ago while he was practicing yoga and stretching on the bar.? He felt like he also passed for few seconds but he came right back.? He is very healthy and not on any home medication.? He has some chronic neck muscle and lower back muscle soreness. Denies any prior history of stroke, [place]/coronary artery disease or peripheral arterial disease. In ED, his vitals are in normal range.? No fever or chills or signs and symptoms of infection. CT head and CTA head and neck was done which did not show any acute abnormality.? Patient is still has nystagmus. Hospital Course: 1. BPPV?67-year-old male presented to the hospital with dizziness and the sensation of the room spinning. He had a similar episode that happened about 5 days ago while doing yoga but this time it was a little bit more severe and lasted longer. Initial CTA of the head and neck was unremarkable and MRI is pending, I did discuss with him the possibility of of staying until the results are back versus going home and he would like to go home. I discussed with him the plan for discharge and he expressed understanding of the risk and benefits of going home and would like to go home today. His symptoms have completely resolved and he no longer has nystagmus and is not dizzy likely indicating that this was not stroke related however the MRI is still pending. I discussed with him that if the MRI results do demonstrate a stroke then I would recommend outpatient follow-up with neurology and I would call him and prescriptions for aspirin and Lipitor. In the meantime we will plan to resume his home ibuprofen as needed as well as meclizine as needed. I recommend that he follow-up with his PCP in 3 to 5 days. Physical Exam Narrative General: Alert, Oriented x3, Cooperative, No apparent distress HEENT: Atraumatic, PERRLA, EOMI, Normocephalic, no nystagmus Oral: Moist Mucosa Neck: Supple, No JVD Lungs: Clear to auscultation, Normal air movement, No rhonchi, No wheeze, No rales Cardiovascular: Regular rate, Regular Rhythm, Normal S1, Normal S2, No murmurs Abdomen: Soft, Non Tender, Non-Distended, No Hepato-splenomegaly Extremities: No edema, Capillary Refill Less than 3 Seconds Skin: No rashes, No breakdown Musculoskeletal: No Tenderness to Palpation of Joints or Extremities Neurological: Cranial nerves II-XII grossly intact, Motor Exam 5/5 strength throughout, Sensory exam intact to light touch and pain Psych/Mental Status: Normal Affect, Appropriate Weight / BMI Weight Weight: 180 lb 8 oz Body Mass Index (BMI) 25.9 ABG / Lab / Microbiology Data Result Diagrams: 09/25/22 06:43 09/25/22 06:43 Laboratory: Laboratory Results - last 24 hr 09/24/22 17:51: POC Glucose 111 H 09/25/22 00:10: POC Glucose 95 09/25/22 06:18: POC Glucose 91 09/25/22 06:43: Sodium 142, Potassium 3.4 L, Chloride 110 H, Carbon Dioxide 27.0, Anion Gap 5, BUN 14, Creatinine 1.04, Estim Creat Clear Calc 73.12, Est GFR (MDRD) Af Amer 92, Est GFR (MDRD) Non-Af 76, BUN/Creatinine Ratio 13.5, Glucose 99, Calcium 8.8, Triglycerides 110, Cholesterol 153, LDL Cholesterol 90, VLDL Cholesterol 22, HDL Cholesterol 41, TSH 1.66 09/25/22 06:43: WBC 4.8, RBC 4.80, Hgb 14.5, Hct 43.2, MCV 90.0, MCH 30.2, MCHC 33.6, RDW Std Deviation 41.4, RDW Coeff of Jeff 12.7, Plt Count 137 L, MPV 10.9, Immature Gran % (Auto) 0.200, Neut % (Auto) 69.8, Lymph % (Auto) 24.4, [place] % (Auto) 4.6, Eos % (Auto) 0.6, Baso % (Auto) 0.4, Absolute Neuts (auto) 3.3, Absolute Lymphs (auto) 1.16, Nucleated RBC % 0 09/25/22 06:43: Hemoglobin A1c 5.2 D/C Instructions Discharge Diet: No restrictions Call your doctor if you observe: Fever of 101 or Higher, Shortness of breath, Dizziness, Fainting spells, Swelling in the ankles, Chest pain and Increased palpitations (irregular heartbeat) Meaningful Use Info Meaningful Use Diagnoses (Choose all that apply): None applicable Discharge Plan Admission Admit Date/Time: 09/24/22 10:11 Attending Provider: Robert Madison Primary Care Provider: Mike Coates Consulting Providers: Jorge Escobedo Discharge Orders/Prescriptions Prescriptions: New meclizine 25 mg tablet 25 mg PO BID PRN (Reason: dizziness) Qty: 14 0RF Continued ibuprofen 200 mg capsule 200 - 600 mg PO QWEEK Referrals / Follow Up: Mike Coates MD [Primary Care Provider] - Within 1 Week Disposition Disposition (needs filled in before D/C Order can be placed): Home, Self Care Charges/Coding Visit Charges Inpatient E&M: 71637 Disch Hosp >30min
--- NOTE | 2022-09-25 15:05 | PHA.DC.MC ---
Pharmacy Service has performed discharge medication reconciliation and counseling for this patient. 1. MECLIZINE 25MG PO BID PRN DIZZINES The patient's discharge medication list was reviewed for discrepancies and discrepancies were resolved. Home Medications ibuprofen 200 mg capsule 200 - 600 mg PO QWEEK pain 01/30/18 meclizine 25 mg tablet 25 mg PO BID PRN dizziness #14 tabs 09/25/22 The patient was counseled on the following discharge medications and changes in medications for homegoing were reviewed. The Reason for Use, instructions for use, and potential side effects were reviewed for all new medications. The patient's questions regarding all of their medications were answered. The patient was able to verbally demonstrate an understanding of their discharge medications.
--- NOTE | 2022-09-25 15:35 | CASEMGMT ---
JESS KHALIL updated by therapy that patient would benefit from outpatient vestibular therapy. Script received. JESS KHALIL to patient's room, patient at MRI, in room. JESS KHALIL provided outpatient vestibular therapy script to patient. had no further questions or concerns at this time.
== END 2022-09-25 11:05 | disposition home or self-care (01) ==
LOC: ED 09:59 → PCU 10:37
PROVIDERS: Admitting Provider Internal Medicine; Emergency Provider Emergency Medicine; PCP Family Medicine; Visit Provider Family Medicine
DX: H81.10 Benign paroxysmal vertigo, unspecified ear (principal); H53.2 Diplopia; G89.29 Other chronic pain; H53.8 Other visual disturbances; R26.2 Difficulty in walking, not elsewhere classified; R11.2 Nausea with vomiting, unspecified; M54.2 Cervicalgia; R29.700 NIHSS score 0; R73.9 Hyperglycemia, unspecified
CPT/HCPCS: 36415; 70496; 70498; 70551; 80048; 80053; 80061; 82962; 83036; 83735; 84100; 84443; 84484; 85025; 93005; 93306; 94762; 96361; 96372; 96374; 96375; 97161; 99221; 99285; J7030; Q9967; A4216; G0378; J2405

== ENCOUNTER 2022-10-09 08:15 | Outpatient (RCR) | payer OTHER, SELFPAY ==
--- NOTE | 2022-10-09 09:31 | HP.PTEVAL_ITS ---
Patient's Visit Information DUTCH VELEZ is a 67 year old M referred to Physical Therapy by Dr. Robert Madison MD with a diagnosis of Vertigo. Date of Evaluation: 10/09/22 Physical Therapist: ARNALDO Mazariegos - Visit Plan Frequency: 1x/Week Duration: 3 Weeks Plan: Pt to go home and start walking with increase in head turns and stand on foam with EC with present to challenge vestibular system and then he will call back in a week to let me know if his sx are continuing to improve - Subjective Pt had ba his head and ended up with vertigo one morning, could not see the clock, stumble to the bathroom and starting throwing up. He had CatScan, MRI and ECho all came back fine. He has to be careful but has not had a dizzy spell. His last dizzy spell was 3 days after the hospital. He was in the ER September 24 and last dizzy spell was September 27. He is back to driving now. He still feels 95-98% normal. His eyes seem a little more fuzzy. No ARAGON. He feels more L ear pressure. L ear ringing is worse than R. He has had ear ringing for years but more intensified. He is not sure of a certain position to bring on the sx. Rolling in bed R to L does not bother him. He has some neck stiffness for years and stretches it. Her feels that his balance is good. - Objective -Hallpike B for dizziness or nystagmus. Pt had no dizziness with 30 seconds plus horizontal and vertical smooth pursuit, head and eyes move together, and eyes focused with head movements. CATSIB 120/120 Pt was more unsteady with EC on foam but was able to maintain his balance. FGA 30/30 - Balance/Special Test Scores Functional Gait Assessment Score: 30 % Disability: 0 CATSIB Score (Max score 120 seconds): 120 Dizziness Score: 10 - Goals Goal 1:: I HEP - Rehabilitation Potential Rehabilitation Potential: Good - Anticipated Interventions For the Purpose of:: To improve muscle performance and motor function, To improve ability to perform ADL's, To increase tolerance to ac tivity/condition/position, To improve performance and independence with ADL's, To improve gait and locomotor functions, To improve balance, To assume or resume ADL's Therapeutic Exercise to Include: Strength training, Balance training, Coordination, Postural training, Gait and locomotor training, Neuromotor development For the Purpose of:: To improve muscle performance and motor function, To increase tolerance to activity/condition/position, To improve ability of physical actions for home/community/work/leisure, To improve balance, To improve safety with gait Functional Training to Include: Gait training For the Purpose of:: To improve safety with gait Thank you for the opportunity to evaluate your patient. For Medicare and Medicare HMO plans, please review the plan of care and approve it. It will need to be FAXED BACK to us at [phone] for Medicare purposes. For Medicare only, by signing this I certify the plan of care. Please let me know if there are questions or concerns regarding this plan of care. Physician Signature: Date:
--- NOTE | 2023-01-22 15:06 | HP.PTDCSUM ---
Discharge Summary D/C summary: It has been my pleasure to treat DUTCH VELEZ referred by Dr. Mike Coates MD, with the diagnosis of Vertigo for a total of 1 visit(s). Discharge Date: 01/22/23 Please see the following information for a summary of their discharge status. Goals Goal 1:: I HEP Plan Plan: Pt to go home and start walking with increase in head turns and stand on foam with EC with present to challenge vestibular system and then he will call back in a week to let me know if his sx are continuing to improve D/C Information Discharge Comments: DC PT d/c sentence: If there are questions or concerns regarding this patient's physical therapy, please feel free to call me at [phone]. Thank you for the referral of this patient. Sincerely, Andressa Anguiano, MPT Balance/Gait/Functional tests Balance/Special Test Scores Functional Gait Assessment Score: 30 % Disability: 0 CATSIB Score (Max score 120 seconds): 120 Dizziness Score: 10
== END 2022-10-09 19:00 | disposition home or self-care (01) ==
LOC: PT 08:15
PROVIDERS: PCP Family Medicine; Referring Provider Family Medicine; Visit Provider Family Medicine
DX: R42 Dizziness and giddiness (principal)
CPT/HCPCS: 97161

== ENCOUNTER 2023-04-02 14:00 | Outpatient (RCR) | payer OTHER, SELFPAY ==
--- NOTE | 2023-02-28 13:11 | HP.PTEVAL_ITS ---
Patient's Visit Information Visit Information Visit Information: DUTCH VELEZ is a 67 year old M referred to Physical Therapy by Dr. Mike Coates MD with a diagnosis of R rot cuff strain. Date of Evaluation: 02/28/23 Physical Therapist: Herman Tovar, PT, ATC Visit Plan Frequency: 2x /Week Duration: 2 Weeks Plan: R shoulder rot cuff strengthening, scap stab ex's, UBE, and HEP Subjective Subjective: Pt reports he fell one week ago and landed on his R elbow, resulting in R shoulder pain. Pt reports he had R shoulder rotator cuff surgery approximately 15 years ago. Pt reports he has not had any diagnostic tests performed at this time. Pt notes he is R hand dominant. Pt denies tingling or numbness in R UE at this time. Pt reports sleep difficulty at this time secondary to pain. Pt reports he experiences the most pain while trying to elevate his R UE, like when he is trying to lift a coffee pot. Pt notes he is unable to perform any overhead activity at this time secondary to pain. Pt is currently retired at this time. But he is helping to take care of his father that is in hospice 13/11. 1/10 pain in R shoulder while sitting at rest, 8/10 pain at worst (attempting to raise his R shoulder) Pain R shoulder: Pain Intensity (Out of 10): 1 Pain Intensity Range: 8 Objective Objective: Neuro: B UE sensation is WNL to light touch. B bicipital reflex= 2/3 Palpation: Minor pain on posterior aspect of R shoulder. Pt is very sore on the anterior aspect of R shoulder. No obvious deformity noted at this time. ROM: L shoulder flex= 170, abd= 170, ER= 65, IR= ; R shoulder flex= 55, abd= 70, ER= 20, IR= MMT: L shoulder flex= 28, abd= 33, ER= 27, IR= 39 #F; R shoulder flex= 0, abd= 0, ER= 6, IR= 9 #F Special testing: Pos empty can sign, Balance/Special Test Scores Quick DASH Score: 63.6350 Goals Goal 1:: Decrease R shoulder pain x 50% to aid with sleep Goal Time Frame: 4-6 Weeks Goal 2:: Increase R shoulder abduction and flexion ROM x 30 degrees to aid with overhead lifting Goal Time Frame: 4-6 Weeks Goal 3:: Increase R shoulder strength x 5-10 #F in all planes to aid with IADL's Goal Time Frame: 4-6 Weeks Goal 4:: I with HEP Goal Time Frame: 4-6 Weeks Rehabilitation Potential Physical Therapy Diagnosis: Pt has R shoulder pain, weakness, and limited ROM secondary to R rot cuff strain Rehabilitation Potential: Good Anticipated Interventions Patient/Client Instruction: Educate patient on: Condition and Plan of Care For the Purpose of:: To improve self management Therapeutic Exercise to Include: Strength training, Endurance training, Active ROM and Scapular Strength/Stabilization For the Purpose of:: To decrease pain, To increase ROM and To improve muscle performance and motor function Cryotherapy (ice pack, ice massage): Yes For the Purpose of:: To decrease pain Text: Thank you for the opportunity to evaluate your patient. For Medicare and Medicare HMO plans, please review the plan of care and approve it. It will need to be FAXED BACK to us at [phone] for Medicare purposes. For Medicare only, by signing this I certify the plan of care. Please let me know if there are questions or concerns regarding this plan of care. Physician Signature: Date:
--- NOTE | 2023-04-02 14:31 | HP.PTDCSUM ---
Discharge Summary D/C summary: It has been my pleasure to treat DUTCH VELEZ referred by Dr. Mike Coates MD, with the diagnosis of R rot cuff strain for a total of 4 visit(s). Discharge Date: Please see the following information for a summary of their discharge status. Subjective Subjective: My shoulder hasn't changed. I have a very hard time sleeping at night. Pain R shoulder: Pain Intensity (Out of 10): 3 Overall Improvement % Improvement: 0 Objective Objective/Function: R shoulder pain ranges from 3-10/10 R shoulder ROM: flex= 60, abd= 35, ER= 25, IR minimally limited R shoulder MMT: flex= 3, abd= 7, ER= 7, IR= 10 #F Pt has made very minimal progress at this time. Goals Goal 1:: Decrease R shoulder pain x 50% to aid with sleep Goal Progress: Not Progressing Goal 2:: Increase R shoulder abduction and flexion ROM x 30 degrees to aid with overhead lifting Goal Progress: Not Progressing Goal 3:: Increase R shoulder strength x 5-10 #F in all planes to aid with IADL's Goal Progress: Progressing Goal 4:: I with HEP Goal Progress: Goal Met Plan Plan: Discharge, recommend return to doctor D/C Information d/c sentence: If there are questions or concerns regarding this patient's physical therapy, please feel free to call me at [phone]. Thank you for the referral of this patient. Sincerely, Herman Tovar, PT, ATC Balance/Gait/Functional tests Balance/Special Test Scores Quick DASH Score: 31.8175 Improvement % Improvement: 0
== END 2023-04-02 19:00 | disposition home or self-care (01) ==
LOC: PT 14:00
PROVIDERS: PCP Family Medicine; Visit Provider Family Medicine
DX: M25.511 Pain in right shoulder (principal); S46.011D Strain of muscle(s) and tendon(s) of the rotator cuff of right shoulder, subsequent encounter
CPT/HCPCS: 97110; 97161; 97164

== ENCOUNTER → 2023-04-06 | Outpatient (CLI) | payer OTHER, SELFPAY ==
--- NOTE | 2023-04-06 10:45 | RAD_ITS ---
EXAM: XR RIGHT SHOULDER COMPLETE, 2 OR MORE VIEWS CLINICAL INDICATION: PAIN TECHNIQUE: Two or more views of the right shoulder. COMPARISON: No relevant prior studies available. FINDINGS: BONES/JOINTS: Degenerative changes of the right AC joint. Right humeral head anchors. No acute fracture. No subluxation. Normal alignment. No sclerotic or destructive changes observed. SOFT TISSUES: Unremarkable. No soft tissue swelling or gas. No radiopaque foreign body. RAD/Shoulder min 2 Views IMPRESSION: No acute findings in the right shoulder. Electronically Signed: Herman Yadav MD at 14:35 EST ,
== END | disposition home or self-care (01) ==
LOC: MTRAD 10:38
PROVIDERS: PCP Family Medicine; Referring Provider Student in an Organized Health Care Education/Training Program; Visit Provider Student in an Organized Health Care Education/Training Program
DX: M25.551 Pain in right hip (principal)
CPT/HCPCS: 73030

== ENCOUNTER → 2023-05-04 | Outpatient (CLI) | payer OTHER, SELFPAY ==
--- NOTE | 2023-05-04 14:34 | MRI_ITS ---
STUDY: MRI RIGHT SHOULDER REASON FOR EXAM: Male, 67 years old. FALL, DECREASED ROM TECHNIQUE: Standardized fat and water weighted pulse sequences were obtained in all 3 orthogonal planes. COMPARISON: X-ray April 06, 2023 FINDINGS: There are tracts from prior dimension and susceptibility artifact due to hardware in the lateral humeral head. There is 2.5 cm full-thickness tear of the supraspinatus tendon, coronal T2-weighted images 7 through 12. There is partial humeral surface tear of the distal infraspinatus tendon. There is tendinosis with thickening of the subscapularis tendon. Normal teres minor tendon. There is mild muscular atrophy of the supraspinatus muscle. There is mild muscular atrophy of the infraspinatus muscle. Normal subscapularis muscle. Normal teres minor muscle. Normal glenohumeral articulation. There is moderate joint effusion with synovial thickening. Tear of the biceps labral complex with subluxation/retraction of the intracapsular long biceps tendon. Normal labrum. Normal capsulo- ligamentous complex. Normal rotator interval. There is moderate osteoarthritis of the acromioclavicular articulations. There is a Type II morphology (curved) acromion, with a neutral orientation. There is moderate subacromial-subdeltoid bursal fluid. Normal visualized coracohumeral and coracoacromial ligaments. Normal quadrilateral space. Normal axillary space. Normal deltoid muscle. Normal trapezius muscle. MRI/Upper Ext Joint Only(Routine) IMPRESSION: Postoperative change. Rotator cuff tear of the supraspinatus tendon. Partial tear of the infraspinatus tendon. Tendinosis of the subscapularis. Tear of the biceps anchor subluxation/retraction of the long head of the biceps tendon. Joint effusion. Subacromial subdeltoid bursitis. Electronically Signed: Tony Noble MD at 15:32 EST ,
== END | disposition home or self-care (01) ==
LOC: MRI 14:03
PROVIDERS: PCP Family Medicine; Referring Provider Student in an Organized Health Care Education/Training Program; Visit Provider Student in an Organized Health Care Education/Training Program
DX: S46.011A Strain of muscle(s) and tendon(s) of the rotator cuff of right shoulder, initial encounter (principal); S46.111A Strain of muscle, fascia and tendon of long head of biceps, right arm, initial encounter; M25.511 Pain in right shoulder; X58.XXXA Exposure to other specified factors, initial encounter
CPT/HCPCS: 73221

== ENCOUNTER → 2023-05-18 | Outpatient (CLI) | payer OTHER, SELFPAY ==
--- OUTSIDE RECORDS SUMMARY | 2023-05-18 16:47 | XMS RPT_ITS | CCD ---
Author Name Unknown Address [address] [place] [address] Organization [facility] Results Test Name Value Interpretation Reference Range Facil ity Summary Purpose Family History No Family History Records Found Advance Directives No Advanced Directives Records Found Additional Source Comments (unrecognized sect ion and content) No Status Records Found INFORMATION SOURCE (unrecogn ized section and content) FOR RECORDS PERTAINING TO PATIENTS WHO ARE OR HAVE BEEN ENROLLED IN A CHEMICAL DEPENDENCY/SUBSTANCEABUSE PROGRAM, SOME INFORMATION MAY BE OMITTED. This clinical summary was aggregated from multiple sources. Caution should be exercised in using it in the provision of clinical care. This summary normalizes information from multiple sources, and as a consequence, information in this document may materially change the coding, format and clinical context of patient data. In addition, data may be omitted in some cases. CLINICAL DECISIONS SHOULD BE BASED ON THE PRIMARY CLINICAL RECORDS. [employer] provides no warranty or guarantee of the accuracy or completeness of information in this document.
[2023-05-18 17:43] LABS: Absolute Neutrophil Count 3.1 X10^3/uL (2.0-7.7); Basophil# 0.04 X10^3/uL; Basophil% 0.8 % (0-1); Eosinophil# 0.09 X10^3/uL; Eosinophils% 1.9 % (0-5); Hematocrit 44.3 % (40-54); Lymphocyte % 26.9 % (19-41); Mean Corp Hgb Conc 33.9 g/dL (32-36); Mean Corpuscular Hgb 30.1 pg (27.0-32.0); Mean Platelet Vol. 10.7 fl (6.2-12.0); Monocyte# 0.28 X10^3/uL; Monocyte% 5.8 % (0-10); NRBC Flagged by Analyzer 0 % (0-5); Neutrophil # 3.12 X10^3/uL (2.7-7.7); Neutrophil % 64.4 % (47-70); Platelet Count 165 K/mm3 (150-450); RBC Distribution Width CV 12.1 % (11.6-14.6); RBC Distribution Width SD 39.3 fl (35.1-43.9); Red Blood Count 4.98 M/mm3 (4.6-6.2); White Blood Count 4.8 K/mm3 (4.4-11.0)
[2023-05-18 18:20] LABS: Anion Gap 2 (5-15); BUN 16 mg/dL (7-18); Calcium,Total 9.2 mg/dL (8.5-10.1); Chloride 108 mmol/L (98-107); Creatinine, Serum 1.07 mg/dL (0.70-1.30); EST Glomerular Filtration Rate 74 mL/min (>60); Est Glom Filt Rate - Afr Amer 89 mL/min (>60); Glucose 96 mg/dL (74-106); Potassium 3.9 mmol/L (3.5-5.1); Sodium Level 141 mmol/L (136-145)
== END | disposition home or self-care (01) ==
LOC: MTLAB 16:37
PROVIDERS: PCP Family Medicine; Referring Provider Physician Assistant Surgical; Visit Provider Physician Assistant Surgical
DX: Z01.818 Encounter for other preprocedural examination (principal)
CPT/HCPCS: 36415; 80048; 85025

== ENCOUNTER 2023-05-31 08:50 | Day surgery (SDC) | payer OTHER, SELFPAY ==
[2023-05-31] VITALS (8 sets, daily range): BP systolic 116–151; BP diastolic 73–128; PULSE 53–80; RESP 16–18; TEMP 36.4–36.7; O2SAT 98–100; BMI 25.2
[2023-05-31] MEDS: Lactated Ringers 1,000 ML 15 ML IV (09:18)
[2023-05-31] MEDS: Cefazolin 2 GM in 0.9% Normal Saline (100mL Bag) 100 ML IV (10:25)
[2023-05-31] MEDS: Epinephrine (1 mg/ml) 1 MG/ML VIAL (10:50)
--- NOTE | 2023-05-31 12:00 | OP.PCM_ITS ---
Report of Operation Date of Procedure: 05/31/23 Description of Surgical Findings:: Preoperative diagnosis: 1. Right shoulder rotator cuff tear 2. Right shoulder subacromial impingement syndrome 3. Right shoulder SLAP tear Postoperative diagnosis: 1. Right shoulder rotator cuff tear 2. Right shoulder subacromial impingement syndrome 3. Degenerative labral tearing with long head biceps tendon rupture Procedure 1. Right shoulder arthroscopic rotator cuff repair 2. Right shoulder arthroscopic subacromial decompression 3. Right shoulder labral debridement Surgeon: Robert Ace DO Hide Spreader: Barbara Leung PA-C Anesthesia: General LMA with interscalene block Dean Of Graduate Studies: Randy Goldstein CRNA Estimated blood loss: 5 cc IV fluids: Per anesthesia record Urine output: None recorded Packing/drains: None Implants: Arthrex fiber tack RC x 2, Arthrex 4.75 mm bio composite swivel lock anchor x 2 Preoperative indications: This is a active 67-year-old male seen in the outpatient setting with acute onset right shoulder pain. He had profound weakness in his supraspinatus. MRI demonstrated a full-thickness retracted tear of the supraspinatus. Patient had remote arthroscopic repair and has been doing well with his right shoulder until recently. I recommend surgical intervention in the form of right shoulder arthroscopic rotator cuff repair, subacromial decompression. Patient also had evidence of a chronic SLAP tear and biceps tenodesis was recommended. Informed consent was obtained in the outpatient setting. Risks, benefits, terms the procedure reviewed with the patient at length and he agreed to proceed. Risk included but were not limited to bleeding, infection, loss of life or limb, need for additional surgery, persistent pain, nonhealing tendon or wounds, stiffness, neurovascular injury, DVT or PE. Patient expressed understanding of these risks and wished to proceed with surgery. Description of procedure: Patient was identified in preoperative holding area by name, medical record number, and date of . The operative extremity was marked. All questions were answered to the patient's satisfaction. An interscalene block was administered by anesthesia prior to the procedure. Patient was then brought to the operative suite at time of his procedure. He was positioned supine a sterile operating table. General anesthesia was induced and LMA was placed. Patient was then placed in lateral decubitus position with the right side up. A beanbag was used to hold the patient in the lateral decubitus position. An axillary roll was placed. Pillows were placed beneath and between his legs to for any bony prominences. We prepped and draped the right upper extremity in normal, sterile orthopedic fashion. The operative extremity was placed in traction utilizing arthroscopic bedroom with 15 pounds of tension applied to the operative extremity throughout the arthroscopic portion of the case. We performed a timeout with all parties in attendance in agreement with the side, site, and operation be performed. No concerns were voiced and we elected to proceed with surgery. 2 g Ancef was administered IV prior to incision by anesthesia staff. I first established a standard posterior portal 2 fingerbreadths inferior medial to the posterior lateral border of the scapular spine. Blunt tipped trocar and arthroscopic cannula was introduced into the glenohumeral joint. Joint was inflated with normal saline with epinephrine. Arthroscope was then introduced. Diagnostic arthroscopy was commenced. Full-thickness tearing with exposed sutures were noted at the supraspinatus with a bare footprint. Biceps tendon was absent and appeared to be chronically ruptured. Standard interval portal was then established with an 11 blade scalpel. Subscapularis was unremarkable. Glenohumeral cartilage was pristine. Degenerative labral fraying was noted as well as a chronic appearing SLAP tear which was debrided to a stable rim of labral tissue with a radial resector. The articular side of the supraspinatus was then debrided with the radial resector. No loose bodies were identified. I then turned my attention to the subacromial space. Arthroscopic instruments were removed. I reentered the shoulder in the subacromial space with blunt tipped trocar. Standard lateral portal was established with an 11 blade scalpel. Passport was placed for suture management during rotator cuff repair. I then skeletonized the undersurface of the acromion. A prominent downsloping spur from the anterior lateral surface of the acromion was identified. Acromioplasty was performed with the arthroscopic bur removing the spur. I then exposed the supraspinatus footprint with the cautery device. The footprint was lightly decorticated with a bur. Old suture was identified and retrieved with a suture grasper. Bursal side of the tendon tissue was debrided with a radial resector. I then proceeded with double row fixation. Via percutaneous portal, 2 fiber tack RC anchors were placed. Sutures were retrieved out the anterior portal. I then sequentially passed each limb of suture from the anchors, which were each double loaded. A total of 8 suture strands were placed through the supraspinatus tendon tissue near the musculotendinous junction. A single limb of each suture was then retrieved at the lateral portal and passed through the eyelet of a swivel lock anchor. Lateral row airplane pilot helper holes were established with the vendor supplied punch. I then completed our lateral row with fixation with tensioning of the sutures and placed in the swivel lock anchor with excellent cortical purchase. Excellent compression and reapproximation of the matthews praspinatus to his [place] footprint was achieved. I then thoroughly lavaged the subacromial space. Arthroscopic instruments were removed. Portal sites were closed in standard fashion with a rdddhe-ao-luryl 3- 0 nylon suture. Bulky sterile compression dressing was applied. Patient was placed in UltraSling. He tolerated the procedure well without apparent complication. He was safely awoken the operative suite and extubated. He was transferred to his gurney and subsequently to PACU in stable condition. Need for skilled lpn or medical assistant: Barbara Leung PA-C was critical to the outcome of the case. During the course of the procedure the physician lpn or medical assistant played a vital role. Her intimate knowledge of my steps in the procedure aided in safe and expedient completion of the procedure. The PA played a vital role in positioning particularly in obtaining the appropriate positioning. The PA was also vital in the retraction of soft tissues during the exposure and protecting vital structures. The PA was also vital and obtaining tendon reduction and assisting with hardware placement. She also played a vital role in closure and sling application with my direct supervision. Post Operative Plan: Weightbearing: Nonweightbearing right upper extremity, okay for pendulums. Range of motion of wrist elbow and hand as tolerated. Antibiotics: 2 g Ancef IV prior to incision DVT Prophylaxis: Aspirin enteric-coated 81 mg twice daily starting tomorrow Gary: None Dressing: Maintain dressing x 2 days then ok to shower X-Rays: 2 weeks postop in the office Pain Medication: Oxycodone Rx upon discharge Follow-up: 2 weeks post-operatively with me in the office
== END 2023-05-31 13:48 | disposition home or self-care (01) ==
LOC: SDC 08:52 → AC 08:54
PROVIDERS: PCP Family Medicine; Referring Provider Student in an Organized Health Care Education/Training Program; Visit Provider Student in an Organized Health Care Education/Training Program
PROC: (CPT 29827; principal; 2023-05-31 10:40)
DX: M75.101 Unspecified rotator cuff tear or rupture of right shoulder, not specified as traumatic (principal); S43.431A Superior glenoid labrum lesion of right shoulder, initial encounter; S46.111A Strain of muscle, fascia and tendon of long head of biceps, right arm, initial encounter; M75.41 Impingement syndrome of right shoulder; W01.0XXA Fall on same level from slipping, tripping and stumbling without subsequent striking against object, initial encounter; Z79.82 Long term (current) use of aspirin; Z79.899 Other long term (current) drug therapy
CPT/HCPCS: 29826; 29827; 64415; 01630; C1713; J7120; J2405

== ENCOUNTER 2023-10-17 16:00 | Outpatient (RCR) | payer OTHER, SELFPAY ==
--- NOTE | 2023-06-13 14:12 | HP.PTEVAL_ITS ---
Patient's Visit Information Visit Information Visit Information: DUTCH VELEZ is a 67 year old M referred to Physical Therapy by Dr. Robert Ace DO with a diagnosis of R rot cuff repair 05/31/23. Date of Evaluation: 06/13/23 Physical Therapist: Herman Tovar, PT, ATC Visit Plan Frequency: 2-3x /Week Duration: 2-4 Months Plan: R shoulder PROM for weeks. Begin AROM ex's at 6 weeks post op. Begin rot cuff strengthening and scap stab ex's when ordered by physician at 10-12 week ziggy. Subjective Subjective: DOS: 05/31/23: Pt reports he had a R rot cuff repair with a biceps release at that time. Pt reports he just had his stitches out today. Pt reports he is starting to feel a little better over the last 2-3 days. Pt reports he is sleeping a little better, but is only able to sleep for 1 1/2 hours at a time. Pt also notes he is still sleeping in his chair. Pt is R hand dominant. Pt denies any tingling or numbness in R UE at this time. Pt is retired at this time. Pt does still take care of his ailing father at this time. Pt reports he has been given pendulum ex's and active elbow flexion and extension for a HEP he has been performing over the past 2 weeks. Pt reports he is limited with all IADL's at this time secondary to his R shoulder pain. 1/10 pain at rest, 7/10 at worst (when he is trying to sleep at night) Pain R shoulder pain: Pain Intensity (Out of 10): 1 Pain Intensity Range: 7 Objective Objective: Neuro: B UE sensation is WNL to light touch Observation: Incisions are healed at this time. No signs of infection. ROM: L shoulder AROM: flex= 155, abd= 170, ER= 65, IR= WNL; R shoulder PROM flex= 70, abd= 90, ER= 30, IR= 30 degree MMT: L shoulder flex= 23, abd= 30, ER= 35, IR= 25 #F Balance/Special Test Scores Quick DASH Score: 70.4525 Goals Goal 1:: Decrease R shoulder pain x 50% to aid with sleep Goal Time Frame: 4-6 Weeks Goal 2:: Increase R shoulder flexion and abduction ROM x 50 degrees to aid with overhead activity Goal Time Frame: 4-6 Weeks Goal 3:: Increase R shoulder strength to within 90% L shoulder strength to aid with IADL's Goal Time Frame: 8-12 Weeks Goal 4:: I with HEP Goal Time Frame: 4-6 Weeks Rehabilitation Potential Physical Therapy Diagnosis: Pt has R shoulder pain, weakness, and limited ROM secondary to R rot cuff repair Rehabilitation Potential: Good Anticipated Interventions Patient/Client Instruction: Educate patient on: Condition and Plan of Care For the Purpose of:: To improve self management Therapeutic Exercise to Include: Strength training, Endurance training, Passive ROM, Active ROM and Scapular Strength/Stabilization For the Purpose of:: To decrease pain, To increase ROM and To improve muscle performance and motor function Cryotherapy (ice pack, ice massage): Yes For the Purpose of:: To decrease pain Text: Thank you for the opportunity to evaluate your patient. For Medicare and Medicare HMO plans, please review the plan of care and approve it. It will need to be FAXED BACK to us at [phone] for Medicare purposes. For Medicare only, by signing this I certify the plan of care. Please let me know if there are questions or concerns regarding this plan of care. Physician Signature: Date:
--- NOTE | 2023-08-24 09:15 | HP.PTREVAL ---
Re-Evaluation Intro: Dr. Robert Ace, DO, It has been my pleasure to treat DUCTH VELEZ over the last 19 visits for R rot cuff repair 05/31/23. Please see the progress note below for an update on the physical therapy plan of care! Subjective Subjective: Pt reports his pain is minimal at this time Objective Objective/Function: R shoulder pain is 1/10, increases to 3/10 at worst R shoulder ROM: flex= 155, abd= 130, ER= 50, IR= moderately limited R shoulder MMT: flex= 6, abd= 11, ER= 11, IR= 15 #F Pt is showing excellent progress at this time Plan Plan Plan: Continue 1 time per week with rot cuff strengthening and scap. stab ex's Balance/Gait/Functional tests Balance/Special Test Scores Quick DASH Score: 70.4525 Goals Goals Goal 1:: Decrease R shoulder pain x 50% to aid with sleep Goal Time Frame: 4-6 Weeks Goal 2:: Increase R shoulder flexion and abduction ROM x 50 degrees to aid with overhead activity Goal Time Frame: 4-6 Weeks Goal 3:: Increase R shoulder strength to within 90% L shoulder strength to aid with IADL's Goal Time Frame: 8-12 Weeks Goal 4:: I with HEP Goal Time Frame: 4-6 Weeks Anticipated Interventions Anticipated Interventions Patient/Client Instruction: Educate patient on: Condition and Plan of Care For the Purpose of:: To improve self management Therapeutic Exercise to Include: Strength training, Endurance training, Passive ROM, Active ROM and Scapular Strength/Stabilization For the Purpose of:: To decrease pain, To increase ROM and To improve muscle performance and motor function Cryotherapy (ice pack, ice massage): Yes For the Purpose of:: To decrease pain Re-Evaluation Ending Re-evaluation ending: Please do not hesitate to contact me at [phone] by phone or if you have questions or concerns regarding this new plan of care! Sincerely, Herman Tovar, PT, ATC
--- NOTE | 2023-09-19 11:02 | HP.PTREVAL ---
Re-Evaluation Intro: Dr. Robert Ace, DO, It has been my pleasure to treat DUTCH VELEZ over the last 23 visits for R rot cuff repair 05/31/23. Please see the progress note below for an update on the physical therapy plan of care! Subjective Subjective: Pt. reports overall doing well. He has been working on strength and some ROM at home. Pt. reports maybe a 1/10 pain. Pt. reports being 80% better overall. He has tried light fishing without issues. Objective Objective/Function: ROM: Flexion 165deg, abd 170deg, functional ER T3, functional IR T10. MMT: R shoulder: flexion 22.3, abd 23.8# 26.2#, ER 29.8# L shoulder: flexion 33.4#, abd 33.3#, IR 26.4#, ER 19.5# Pt. is overall doing very well. We reviewed exercises with him including more ER and prone deltoid strengthening. He is to follow up with physician and trial his exercises on his own for 2-3 weeks then follow back up with PT to ensure that he continues to progress as expected. Plan Plan Plan: pt. to complete exercises on own for the next 3 weeks then follow back up with PT to ensure that he is progressing as expected. Balance/Gait/Functional tests Balance/Special Test Scores Quick DASH Score: 13.6350 Goals Goals Goal 1:: Decrease R shoulder pain x 50% to aid with sleep Goal Time Frame: 4-6 Weeks Goal Progress: Goal Met Goal 2:: Increase R shoulder flexion and abduction ROM x 50 degrees to aid with overhead activity Goal Time Frame: 4-6 Weeks Goal Progress: Goal Met Goal 3:: Increase R shoulder strength to within 90% L shoulder strength to aid with IADL's Goal Time Frame: 8-12 Weeks Goal Progress: Progressing Goal 4:: I with HEP Goal Time Frame: 4-6 Weeks Goal Progress: Progressing Anticipated Interventions Anticipated Interventions Patient/Client Instruction: Educate patient on: Condition and Plan of Care For the Purpose of:: To improve self management Therapeutic Exercise to Include: Strength training, Endurance training, Passive ROM, Active ROM and Scapular Strength/Stabilization For the Purpose of:: To decrease pain, To increase ROM and To improve muscle performance and motor function Cryotherapy (ice pack, ice massage): Yes For the Purpose of:: To decrease pain Re-Evaluation Ending Re-evaluation ending: Please do not hesitate to contact me at [phone] by phone or if you have questions or concerns regarding this new plan of care! Sincerely, BRIGETTE PersaudT
== END 2023-10-17 19:00 | disposition home or self-care (01) ==
LOC: PT 16:00
PROVIDERS: PCP Family Medicine; Referring Provider Student in an Organized Health Care Education/Training Program; Visit Provider Student in an Organized Health Care Education/Training Program
DX: S46.011D Strain of muscle(s) and tendon(s) of the rotator cuff of right shoulder, subsequent encounter (principal)
CPT/HCPCS: 97110; 97140; 97161; 97530

== ENCOUNTER 2024-04-04 12:23 | Day surgery (SDC) | payer OTHER, SELFPAY ==
[2024-04-04 12:43] VITALS: BP 140/94; PULSE 72; RESP 16; TEMP 37; O2SAT 100; BMI 26.2
--- NOTE | 2024-04-04 13:20 | LES_PTH ---
PATIENT: DUTCH VELEZ [place] [facility] [place][id number] AGE/SX: 68/M ROOM: RE04/04/[address]: Dr. Jessica Willams MD : [id number] BED: DIS: 04/04/2024 SPEC #: [id number] RECD: 04/04/24 18:22 STATUS: MALCOLM REPrecious #: [id number] ANA: 04/04/24 13:[address]: Jessica Willams DEPT: SURGICAL PATHOLOGY RECD BY: Henok Dumont ENTERED: 04/07/24 09:05 SP TYPE: Lesion OTHR DR: Dr. Mike Coates MD Tissues: A - Skin of upper extremity and shoulder B - Skin of nose, NOS Procedures: Surgery Specimen Level IV HEADER OPERATION: Excision subcutaneous mass left shoulder (3.5cm) shave lesion PRE-OP DIAGNOSIS: Neoplasm of uncertain behavior of skin of face, neoplasm of uncertain behavior of connective and other soft tissue TISSUE SUBMITTED: A- Subcutaneous mass left shoulder, B- Shave lesion nose MICROSCOPIC DIAGNOSIS A. Soft tissue mass of left shoulder, excision: Mature adipose tissue consistent with lipoma. B. Skin lesion of nose, shave biopsy: Suggestive of squamous papilloma. See comment. 04/08/2024 COMMENT B. Complete excision of lesion is recommended for definite classification. Clinical correlation is necessary. MICROSCOPIC DESCRIPTION Slides are reviewed. GROSS DESCRIPTION A. Received in fixative is one container labeled with the patient's name and designated Subcutaneous mass left shoulder. The specimen consists of multiple irregular fragments of monroe-yellow adipose tissue that in aggregate measure 2.5 x 2.0 x 1.0 cm. Sections reveal yellow adipose cut surfaces without area of necrosis, cystic degeneration or hemorrhage. The entire specimen is submitted in two cassettes. B. Received in fixative is one container labeled with the patient's name and designated Shave lesion nose. The specimen consists of a shave biopsy of monroe-white skin measuring 0.2 x 0.2 x 0.1cm. The entire specimen is submitted in one cassette. SJ 04/07/2024 TC:5 CPT:52076d6
--- NOTE | 2024-04-04 13:30 | HP.PCM_ITS ---
[facility] - General General Date of Service: 04/04/24 Chief Complaint: Lump of his shoulder and lesion of his nose. HPI Narrative DUTCH VELEZ, is a 68 M who presents with a subcutaneous mass of the left posterior shoulder which has been there for several years but has been noted to enlarge. He also has a hyperkeratotic lesion on the dorsum of the nose with recent growth or change. ON LICENSE OF [facility] Medical History Back problem Non-smoker History of echocardiogram Hemorrhoids Home Medications ?Medication ?Instructions ?Recorded ?Last Taken ?Type acetaminophen 500 mg capsule 1,000 mg PO Q6H PRN SHOULDER PAIN 05/17/23 05/27/23 History Allergy/AdvReac Type Severity Reaction Status Date / Time No Known Allergies Allergy Verified 04/04/24 12:41 Family History Father Hypertension Mother Breast cancer Hypertension Brother CAD (coronary artery disease) Hypertension Surgical History Partial traumatic metacarpophalangeal amputation of finger S/P rotator cuff repair Social History Smoking Status: Never smoker alcohol intake: never substance use type: does not use additional social history: no asa, ibuprofen prn Vital Signs Vital Signs Vital Signs: 04/04/24 12:43 04/04/24 12:43 Temperature 98.6 F Temperature Source Temporal Pulse Rate 72 Respiratory Rate 16 Respiratory Pattern Normal Blood Pressure 140/94 H Blood Pressure Mean 109 Blood Pressure Source Monitor Blood Pressure Position Semi-Fowlers Blood Pressure Location Right Arm Pulse Ox 100 Oxygen Delivery Method Room Air Weight Weight: 178 lb Body Mass Index (BMI) 26.2 Physical Exam Narrative Patient with a mobile subcutaneous mass of his left posterior shoulder at the base of the neck. He also has a hyperkeratotic neoplasm on the dorsum of his nose. Const alert, oriented x3, no apparent distress, average body habitus and well nourished General Appearance: cooperative and well developed Orientation / Consciousness: oriented to person, oriented to place and oriented to time HEENT head/scalp atraumatic, external ears normal and external nose normal Head and Scalp: normal to inspection, normocephalic, atraumatic and abrasion Face and Sinus: normal facial exam and face symmetric Nose: external nose normal External Ear: external ears normal External Auditory Canal: EAC's normal Mouth: lips normal Eyes PERRL, EOMs intact bilaterally and conjunctivae normal General Eye: normal appearance of both eyes Periorbital: periorbital findings normal Eyelid: eyelids normal Conjunctiva: conjunctiva normal Pupil: PERRL Neck full ROM Lymph Lymphatic: no lymphadenopathy noted Chest inspection of chest normal Breast/Axilla Palpation: no axillary lymphadenopathy Resp normal respiratory effort, normal air movement and clear to auscultation bilaterally Auscultation: clear to auscultation bilaterally Cardio regular rate, regular rhythm, S1 normal heart sound, S2 normal heart sound and no murmurs Rate: regular rate Rhythm: regular rhythm GI soft to palpation and non-tender Extremity normal to inspection and full ROM General Extremity: normal exam except as noted Skin General Skin Exam: turgor normal Neuro oriented x3, CN's II-XII intact bilaterally, moves all extremities, no focal motor deficits and no sensory deficits noted Sensorium / Orientation: awake, alert, oriented to person, oriented to place and oriented to time Speech: speech normal Gait (Neuro): normal gait Psych mental status grossly normal Attention / Concentration: concentration grossly intact Memory / Cognition: memory grossly intact Assessment & Plan Assessment/Plan (1) Neoplasm of uncertain behavior of skin of face: (2) Neoplasm of uncertain behavior of connective and other soft tissue: PLAN: Plan For excision subcutaneous mass left shoulder and shave lesion of nose.
[2024-04-04 13:33] VITALS: BP 133/89; BP 134/93; BP 143/85; O2SAT 96; O2SAT 97; O2SAT 98
[2024-04-04] MEDS: Lidocaine 1% /Epi 1:100 9 ML, Sodium Bicarbonate 1 MEQ OPERA.SITE (13:53)
[2024-04-04] MEDS: Bacitracin 500 UNITS/GM PACKET (14:06)
--- NOTE | 2024-04-04 14:50 | DCINST_ITS ---
Discharge Instructions Dressing / Incision Additional Dressing/Incision Instructions:: Keep your back elevated (recliner position) for the next 3-4 nights to decrease swelling and bruising. May shower over the dressing on your shoulder??but do not scrub. Leave this in place until seen in the office. When there is no further drainage from the nose site, you may leave this Band- Aid off. Take the oral antibiotic (Keflex) 2 times a day until finished. Follow Up Care Please Follow Up With: Jesisca Willams MD When: In 1 to 2 weeks Test Results: Test results from this visit will be discussed in further detail at your follow- up appointment, if applicable. Discharge Plan Admission Attending Provider: Jessica Willams Primary Care Provider: Mike Coates Instructions Print Language: Kiswahili Discharge Orders/Prescriptions Prescriptions: New cephalexin 500 mg capsule 500 mg PO BID 5 Days Qty: 10 0RF No Action acetaminophen 500 mg capsule 1,000 mg PO Q6H PRN (Reason: SHOULDER PAIN) Referrals / Follow Up: Mike Coates MD [Primary Care Provider] - Disposition Disposition (needs filled in before D/C Order can be placed): Home, Self Care
--- NOTE | 2024-04-04 14:55 | PCM.OPRPT ---
Problems Associated Problem List Diagnoses (1) Neoplasm of uncertain behavior of skin of face: (2) Neoplasm of uncertain behavior of connective and other soft tissue: Operative Report (Standard) Operative Information Date of Procedure: 04/04/24 Pre-Operative Diagnosis: Subcutaneous mass left posterior shoulder Neoplasm of skin of nose Post-Operative Diagnosis: Same Surgery/Procedure Performed: Excision subcutaneous mass left posterior shoulder (3.0 cm) Shave lesion dorsum of nose (0.5 cm) project controller: Yes Computer Lab Para Professional: Spike Christiansen Tasks completed by family practice physician assistant: Retracting Type of Anesthesia: Local RN Documented Start/Stop Times: Operation Date: 04/04/24 13:20 Case Time Into Pre-Op 04/04/24 12:30 Into Room 04/04/24 13:38 Procedure Start 04/04/24 13:57 Procedure End 04/04/24 14:48 Out of Room 04/04/24 14:49 Procedure Start Time: 13:57 Procedure Stop Time: 14:48 Select all DRAINS/GRAFTS/IMPLANTS that apply: None Estimated Blood Loss: Minimal Specimen collected: Yes Description of specimen(s) removed: Subcutaneous mass left posterior shoulder Neoplasm on dorsum of nose Description of surgery: The patient presents with a 4 to 5-year history of a subcutaneous mass on his left posterior shoulder. He presents for excision of the mass with submission for pathologic evaluation. Additionally, he has a neoplasm on the dorsum of the nose with recent growth or change. The patient is brought to the operating room and placed on the operating room table in a right lateral decubitus position. The left posterior shoulder was prepped and draped in the usual sterile fashion. 1 presents Xylocaine with epinephrine is used to inject the periphery of the site as well as the incision line. An incision is made and carried down through the subcutaneous tissue until the mass is identified. 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 This is removed and debrided of all visible components. Hemostasis is performed with electrocautery. The specimen is passed off the operative field to be sent to pathology. The wound is then closed in layers using a 3-0 STRATAFIX suture to close the site in layers. Dermabond, Steri-Strips, and a Tegaderm are placed on the site. We then directed our attention to the neoplasm of the nose and after this is prepped and draped in the usual sterile fashion, 1% Xylocaine with epinephrine is used for local anesthetic. The neoplasm is then shaved at the base and the base full rise. Antibiotic ointment and a Band-Aid are placed on the site. He tolerated the procedure well was taken to the recovery area in an awake and stable condition. Needle and sponge counts are correct. Surgical Findings: As above Complications Complications: No Admit VTE Documentation VTE Mechan Device Prophylaxis: None Reason prophylaxis not ordered: Treatment Not Indicated
[2024-04-04 15:05] VITALS: BP 128/86; PULSE 64; RESP 16; TEMP 37.7; O2SAT 98
== END 2024-04-04 15:21 | disposition home or self-care (01) ==
LOC: SDC 12:24 → AC 12:26
PROVIDERS: PCP Family Medicine; Referring Provider Plastic Surgery; Visit Provider Plastic Surgery
PROC: (CPT 23071; principal; 2024-04-04 13:05)
DX: D17.22 Benign lipomatous neoplasm of skin and subcutaneous tissue of left arm (principal); D23.39 Other benign neoplasm of skin of other parts of face
CPT/HCPCS: 23071; 11310; 88305

== ENCOUNTER → 2024-04-09 | Outpatient (CLI) | payer OTHER, SELFPAY ==
--- NOTE | 2024-04-09 11:07 | MRI_ITS ---
STUDY: MRI LEFT SHOULDER REASON FOR EXAM: Male, 68 years old. IMPINGEMENT SYNDROME, STRAIN, LT SHOULDER PAIN, HX OF RTC SX TECHNIQUE: Standardized fat and water weighted pulse sequences were obtained in all 3 orthogonal planes. COMPARISON: None. FINDINGS: There is supraspinatus and infraspinatus tendinosis with a moderate grade partial thickness articular surface tear of the conjoined distal supraspinatus/infraspinatus tendon, overall measuring 3.0 cm in length (coronal T2 series 5 images 12-15) and 1.5 cm in width (sagittal T2 series 6 images 15-17). There is subscapularis tendinosis. Normal teres minor tendon. Normal supraspinatus muscle. Normal infraspinatus muscle. Normal subscapularis muscle. Normal teres minor muscle. There is a small glenohumeral joint effusion. There is mild enthesopathic subcortical cyst formation of the greater tuberosity of the humeral head. Normal biceps labral complex. Normal intracapsular long biceps tendon. Normal labrum. Normal capsulo-ligamentous complex. Normal rotator interval. There is mild acromioclavicular arthrosis. There is a Type II morphology (curved), with a neutral orientation. There is no subacromial-subdeltoid bursal fluid. Normal visualized coracohumeral and coracoacromial ligaments. Normal quadrilateral space. Normal axillary space. Normal deltoid muscle. Normal trapezius muscle. MRI/Upper Ext Joint Only(Routine) IMPRESSION: Supraspinatus and infraspinatus tendinosis with a 3.0 x 1.5 cm moderate grade partial thickness articular surface tear of the conjoined distal supraspinatus/infraspinatus tendon. Subscapularis tendinosis. Small glenohumeral joint effusion. Mild acromioclavicular arthrosis. Electronically Signed: Sammy Fontana MD at 14:37 EST Reading Location ID and State: [facility] / [place] , Service support ,
== END | disposition home or self-care (01) ==
LOC: MRI 10:59
PROVIDERS: PCP Family Medicine; Referring Provider Student in an Organized Health Care Education/Training Program; Visit Provider Student in an Organized Health Care Education/Training Program
DX: S46.012A Strain of muscle(s) and tendon(s) of the rotator cuff of left shoulder, initial encounter (principal); M75.42 Impingement syndrome of left shoulder
CPT/HCPCS: 73221

== ENCOUNTER 2024-10-06 07:15 | Day surgery (SDC) | payer OTHER, SELFPAY ==
--- NOTE | 2024-09-28 21:11 | HP.PCM_ITS ---
History and Physical History and Physical Patient Name: Talon VailDOB: 1955 From: DATE OF PRE-OPERATIVE EXAM: 09/17/2024 DATE OF SURGERY: 10/06/2024 SCHEDULED PROCEDURE: Left shoulder arthroscopic rotator cuff repair, mini open subpectoral biceps tenodesis. HISTORY OF PRESENT ILLNESS: Chinedu Vail, a 69-year-old male, returns for a check of his left shoulder. He reports ongoing shoulder pain that interferes with his sleep. Chinedu expresses a desire for surgery, stating he doesn't want to continue taking pain medication regularly. He mentions doing some exercises with 3 to 5 pound weights as previously instructed in therapy. Chinedu notes difficulty performing push-ups, currently able to do about 15 'girl push-ups' on his knees. He also reports feeling a hard, firm muscle in his shoulder area. REVIEW OF SYSTEMS: Review Of Systems: Constitutional: Denies change in appetite, fever and weight change. Cardiovasular: Denies chest pain, heart murmur and irregular heartbeat. Respiratory: Denies cough, pneumonia, shortness of breath, tuberculosis and wheezing. Gastrointestinal: Denies constipation, diarrhea, heartburn, nausea, rectal itc taye, bloody stools and vomiting. Genitourinary: Denies urinary symptoms. Musculoskeletal: Denies leg swelling, pain, trouble walking and weakness. Skin: Denies Raynaud's, history of shingles and tattoo. Neurological: Denies ambulatory dysfunction, dizziness, numbness/tingling and tremor. Psychiatric: Denies anxiety, insomnia and stress. Hematologic/Lymphatic: Denies anemia, bleeding/bruising tendency and past transfusion. Reviewed, no changes. PAST MEDICAL HISTORY: Advance Care Plan: No Advance Directives Effective Date: 04/06/2023 Past Medical History: Medical Problems: Vertigo - WAS IN HOSPITAL FOR 2 DAYS Accidents: Fall - (02/20/2023) slipped on wet leaves and landed on elbow and right shoulder Surgical Hx: RT & LT shoulder arthroscopy RT Shoulder, Arthroscopic Rotator Cuff Repair, Lenard - (05/31/2023) MIGUEL @ [facility] LT Shoulder Mass Removal - (03/2024) DR. MARTINEZ[facility] Anesthesia Complications: None Assistive Devices: Glasses Reviewed, no changes. SOCIAL HISTORY: Social History: Marital: .Occupation: Retired.Work Status: Retired.Hand Dominance: Right- handed. Personal Habits: Cigarette Use: Never Smoked Cigarettes.Smokeless Tobacco: Never Used Smokeless Tobacco.E-Cigarette Use: Never used.Alcohol: Weekly use.Drug Use: Denies Use.Enjoy Exercising: Exercises 1-3 X/Week. Reviewed, no changes. VITALS: Ht: 70 Wt: 182lb Wt k.555 BMI: 26.1 BP: 134/80 Pulse: 63 Resp: 16 T: 97.8 T: 36.6C Pain Level: 0/10 O2SatR: 97 ALLERGIES: Meloxicam MEDICATIONS: Oxycodone HCL 5 mg 1-2 tab by mouth every 6 hours PRE-OP EXAM: General appearance:NORMAL Other: Eyes: Conjunctivae and lids: NORMAL Pupils: ERR Ears, Nose, Mouth, and Throat: NORMAL Other: Inspection of lips, teeth and gums: NORMAL Other: Neck: Examination of neck: no masses noted. Respiratory: Assessment of respiratory effort: NORMAL Other: Auscultation of lungs: clear to auscultation no wheezes, rhonchi or rales. Cardiovascular: Auscultation of heart: regular rate and rhythm, no murmurs, gallops or rubs. Exam of carotid arteries: NORMAL Other: Gastrointestinal: Exam of abdomen: soft, nontender, nondistended bowel sounds present. Lymphatic: Palpation of nodes in neck: NORMAL Other: Palpation of nodes in Axillae: NORMAL Other: Neurological: see below Psychiatric: Orientation to time, place and person: NORMAL Other: Mood and affect: NORMAL Other: PHYSICAL EXAMINATION: Alert and oriented ?3, no acute distress. Normal mood and affect. Normal gait. Left shoulder: Bicipital groove tenderness left. Active forward flexion 160, external rotation 20, internal rotation L3. Pain but 5/5 strength with empty can. Positive speeds, positive [place]'s. Positive [place] left. Sensation intact light touch throughout. Radial pulse 2+, brisk refill in the fingertips. 5/5 strength for shoulder abduction, internal and external rotation. No rashes or lesions. IMAGING STUDIES: MRI again reviewed from [facility] 04/09/24 left shoulder See report for full details Agree with radiology interpretation Supraspinatus and infraspinous tendinosis with a 3.0 x 1.5 cm moderate grade partial thickness articular side tear of the supraspinatus/infraspinatus tendon Subscapularis tendinosis Small joint effusion Mild acromioclavicular joint arthrosis Subacromial spur IMPRESSION: 1. Vertigo 2. Left shoulder partial rotator cuff tearing 3. Left shoulder subacromial impingement syndrome 4. Left shoulder biceps tendinitis. 5. Overweight PLAN: The surgeon did discuss and review all treatment options with the patient including surgical versus nonsurgical. At this time the patient does wish to proceed with the above-stated procedure. Potential risks benefits and complications of the procedure were discussed and reviewed with the patient including but not limited to , infection, nerve and blood vessel damage, persistent pain, numbness, tingling, paresthesias, blood clot, pulmonary em bolism, in the requirement for possible further surgery. Patient expressed full understanding. Has no further questions for the doctor. Does agree to proceed with the above-stated procedure, and has signed the appropriate surgery consent form. DVT prophylaxis: Patient will be taking aspirin 81 mg twice daily for 2 weeks postoperatively. Patient was educated to wear his YEIMI hose for 2 weeks post operatively. Pain medications: Patient will be taking Tylenol 1000 mg every 8 hours. Patient will then have oxycodone as needed for pain control. Patient was given orders for CBC, BMP, EKG prior to surgery. ___ I have re-examined the patient. There are no clinical changes since date of exam. ___ See progress notes for changes. ___ Dictated on admission Date: Time: Signature:
--- NOTE | 2024-09-30 13:50 | EKG12_ITS ---
Test Reason : PREOP Blood Pressure : */* mmHG Vent. Rate : 62 BPM Atrial Rate : 62 BPM P-R Int : 134 ms QRS Dur : 84 ms QT Int : 408 ms P-R-T Axes : 73 44 54 degrees QTcB Int : 414 ms Normal sinus rhythm Normal ECG Confirmed by Lj Sanchez ([id number]), society editor KYMBERLY BARRAZA ([id number]) on 10/01/2024 10:15:30 AM Referred By: Robert Ace Confirmed By: Lj Sanchez
[2024-09-30 15:38] LABS: Absolute Lymphocyte Count 0.93 X10^3/uL (0.83-4.51); Absolute Neutrophil Count 2.8 X10^3/uL (2.0-7.7); Basophil# 0.03 X10^3/uL; Basophil% 0.7 % (0-1); Eosinophil# 0.03 X10^3/uL; Eosinophils% 0.7 % (0-5); Hematocrit 40.2 % (40-54); Hemoglobin 13.8 g/dL (13.0-16.5); Lymphocyte # 0.93 X10^3/ul (0.83-4.51); Lymphocyte % 22.7 % (19-41); Mean Corp Hgb Conc 34.3 g/dL (32-36); Mean Corpuscular Hgb 30.1 pg (27.0-32.0); Mean Corpuscular Volume 87.8 fL (80-94); Mean Platelet Vol. 11.2 fl (6.2-12.0); Monocyte# 0.28 X10^3/uL; Monocyte% 6.8 % (0-10); NRBC Flagged by Analyzer 0 % (0-5); Neutrophil # 2.81 X10^3/uL (2.7-7.7); Neutrophil % 68.9 % (47-70); Platelet Count 147 K/mm3 (150-450); RBC Distribution Width CV 12.5 % (11.6-14.6); RBC Distribution Width SD 39.8 fl (35.1-43.9); Red Blood Count 4.58 M/mm3 (4.6-6.2); White Blood Count 4.1 K/mm3 (4.4-11.0)
[2024-09-30 15:41] LABS: International Normalized Ratio 1.1; Prothrombin Time (Protime)PT. 14.1 SECONDS (11.7-14.9)
[2024-09-30 15:42] LABS: Partial Thromboplast Time 29.2 Seconds (24.1-36.2)
--- NOTE | 2024-09-30 16:24 | PAT.ANE_ITS ---
Pre-Assessment Diagnosis/Proposed Procedure Planned Operative Procedure(s): (L) LEFT SHOULDER ARTHROSCOPIC ROTATOR CUFF REPAIR, MINI OPEN SUBPECTORAL BICEPS TENODESIS Anesthesia History Anesthesia History - application security specialist: Anesthesia History - application security specialist Hx Hospitalization No 09/25/24 12:03 Any Problems With Anesthesia No 09/25/24 12:03 Cholinesterase deficiency No 09/25/24 12:03 You/Your Family Experience No 09/25/24 12:03 fever (hyperthermia) with Relationship Recent Exposure to Contagious No 04/04/24 12:43 Disease Does patient have nerve No 09/25/24 12:03 stimulator Patient instructed to have device shut off --Does patient have Pacemaker or ICD? When Was Last Pacemaker Check QUESTION #4 FULL TEXT: You/Your Family Experience fever (hyperthermia) with Anesthesia Last Oral Intake Last Oral intake: Last Oral Intake NPO since Meds taken in AM with sips of water? Meds patient instructed to take am of surgery PONV PONV - application security specialist: PONV - application security specialist Female No 09/25/24 12:03 HX of Motion Sickness No 09/25/24 12:03 HX of N/V After Surgery No 09/25/24 12:03 Non-Smoker Yes 09/25/24 12:03 Duration of Surgery greater Yes 09/25/24 12:03 than 60 minutes Number of Risk Factors 2 09/25/24 12:03 PONV Score Moderate Risk 09/25/24 12:03 Height & Weight Height & Weight: Anesthesia: Height & Weight Height 5 ft 9 in 05/07/24 11:04 Respiratory Assessment Respiratory Assessment - application security specialist: Respiratory Tract Infection Hx - application security specialist Hx Respiratory Tract Infection No 09/25/24 12:03 STOP Sleep Apnea STOP Sleep Apnea - application security specialist: STOP Sleep Apnea - application security specialist Hx Hypertension No 09/25/24 12:03 Hx Sleep Apnea No 09/25/24 12:03 CPAP No 09/25/24 12:03 BIPAP Do you snore loudly (louder No 09/25/24 12:03 than talking or can be heard Do you often feel tired/ No 09/25/24 12:03 fatigued/ sleepy during daytime? Has anyone observed you stop Yes 09/25/24 12:03 breathing during sleep? STOP Results Negative 09/25/24 12:03 QUESTION #5 FULL TEXT : Do you snore loudly (louder than talking or can be heard through closed doors)? Tobacco Use History Tobacco Use History - application security specialist: Tobacco Use History - application security specialist Tobacco Use Smoking Status Never smoker 09/25/24 12:03 Hx Tobacco Use No 09/25/24 12:03 Years Smoking Packs Smoked per Day Smoking Cessation Date was within the last 15 years Hx Smoking Cessation Date Hx Smoking Cessation No 09/25/24 12:03 Counseling Hematologic Medial History Hematologic Hx - application security specialist: Hematologic Medical Hx - relaster Hx of Blood Transfusion No 09/25/24 12:03 Hx of Transfusion in last 3 No 09/25/24 12:03 Months Date of Last Transfusion (if within last 3 months) Ever experience any problems No 09/25/24 12:03 with transfusion(s)? Specify any problems Hx of Preganancy in last 3 N/A 09/25/24 12:03 Months Nurse Filling Out Transfusion [id number] 09/25/24 12:03 & Questions: Date: 09/25/24 09/25/24 12:03 Time: 12:06 09/25/24 12:03 Patient unable to answer at this time (ie. confused, unrespo /Reproduction History /Reproductive History - application security specialist: /Reproductive Hx- application security specialist Hx Now Gestational Age (in weeks): EDC: Hx Hx Para Hx Section SAB PFSH Medical History (Updated 09/25/24 @ 12:13 by Chad Miller) Easy bruising History of vertigo Heartburn Back problem Non-smoker History of echocardiogram Hemorrhoids Home Medications ?Medication ?Instructions ?Recorded ?Last Taken ?Type acetaminophen 500 mg capsule 1,000 mg PO Q6H PRN SHOUL EMMANUEL PAIN 05/17/23 05/27/23 History aspirin 81 mg tablet,delayed 81 mg PO BID 05/07/24 Unk nown History release oxycodone 5 mg tablet 5 mg PO 4X/DAY PRN postOp Pa in 05/07/24 Unknown History Allergy/AdvReac Type Severity Reaction Status Date / Time meloxicam AdvReac Intermediate Other Verified 09/25/24 13:50 Family History Father Hypertension Mother Breast cancer Hypertension Brother CAD (coronary artery disease) Hypertension Surgical History (Updated 09/25/24 @ 12:45 by Chad Miller) History of colonoscopy History of rotator cuff surgery Partial traumatic metacarpophalangeal amputation of finger S/P rotator cuff repair Social History Smoking Status: Never smoker alcohol intake: never substance use type: does not use additional social history: no asa, ibuprofen prn Audit: Pertinent Findings Pertinent Findings EKG Perinent findings: 09/24/2022. Sinus bradycardia 55 bpm. Otherwise normal E KG. Echo (EF%) pertinent findings: 09/25/2022. EF 65%. Pulmonary artery systolic pressure 26. Recommendation Anesthesia Recommendation Anesthesia recommendation: OPTIMIZED for anesthesia
[2024-09-30 16:25] LABS: AST(SGOT) 19 U/L (<=37); Alanine Aminotransfer ALT/SGPT 12 U/L (<=46); Albumin, Serum 4.3 g/dL (3.4-4.8); Alkaline Phosphatase 56 U/L (40-129); Bilirubin, Direct 0.21 mg/dL (0.00-0.30); Globulin 2.2 g/dL (2.2-4.2); Magnesium 2.1 mg/dL (1.5-2.2); Protein, Total 6.5 g/dL (5.9-8.4); Total Bilirubin 0.52 mg/dL (0.00-1.30)
[2024-09-30 16:54] LABS: Anion Gap 11 (5-15); BUN 15 mg/dL (4-19); BUN/Creat Ratio 13.2 RATIO (10-20); Calcium,Total 9.3 mg/dL (7.6-11.0); Carbon Dioxide 25.3 mmol/L (21.0-32.0); Chloride 106 mmol/L (98-108); Creatinine, Serum 1.11 mg/dL (0.70-1.20); EST Glomerular Filtration Rate 73 (>60); Glucose 92 mg/dL (70-99); Potassium 4.2 mmol/L (3.3-5.1); Sodium Level 142 mmol/L (133-145)
[2024-10-06] VITALS (10 sets, daily range): BP systolic 104–147; BP diastolic 82–98; PULSE 54–94; RESP 16–18; TEMP 35.9–36.3; O2SAT 97–100; BMI 25.9
--- OUTSIDE RECORDS SUMMARY | 2024-10-06 07:29 | XMS RPT_ITS | CCD ---
Author Organization [facility] Care Team Providers Care License Issuer Name Role Phone Dr. Mike Coates Primary Care Provider [phone] MD Surendra Man Emergency Provider [phone] Gregg, Dr. Patel Admit Provider [phone] Jorge Escobedo Attending Provider GreggDr. Patel Other Provider Dr. Jose Cortes Attending Provider Dr. Robert Madison Attending Provider [phone] Dr. Robert Madison Other Provider Ghazoul, Jessica Referring Unavailable Ghazoul, Jessica Consulting Unavailable Coates, Mike Primary Care Unavailable Ghazoul, Jessica Attending Unavailable Coates, Mike Referring Unavailable Coates, Mike Primary Care Unavailable Ghazoul, Jessica Attending Unavailable Coates, Mike Referring Unavailable Coates, Mike Primary Care Unavailable Ghazoul, Jessica Attending Unavailable Coates, Mike Primary Care Unavailable Ghazoul, Jessica Referring Unavailable Ghazoul, Jessica Attending Unavailable Coates, Mike Primary Care Unavailable Spittle, Robert Attending Unavailable Spittle, Robert Referring Unavailable Spittle, Robert Referring Unavailable Coates, Mike Primary Care Unavailable Spittle, Robert Attending Unavailable Coates, Mike Primary Care Unavailable Spittle, Robert Attending Unavailable Spittle, Robert Referring Unavailable Jg, Isabell Attending Unavailable Jg, Isabell Referring Unavailable Coates, Mike Primary Care Unavailable Coates, Mike Primary Care Unavailable Coates, Mike Referring Unavailable Ghazoul, Jessica Attending Unavailable Allergies Allergy Classification Reported Allergen(s) Allergy Type Date of Onset Reaction(s) Facility (1 source) meloxicam Drug Allergy 09-25-2024 [facility] Repository Medications Current Medications Medication Drug Class(es) Dates Sig (Normalized) Sig (Original) acetaminophen 500 mg oral capsule (2 sources) Start: 05-17-2023 take 1000 mg by mouth every six hours Acetaminophen Active 1000 MG PO EVERY 6 HOURS May 17, 2023 12:00am ibuprofen 200 mg oral capsule (7 sources) Nonsteroidal Anti-inflammatory Drug Start: 01-30-2018 take 200-600 mg by mouth every week Ibuprofen Active 200 - 600 MG PO EVERY WEEK January 29, 2018 11:00pm meclizine hydrochloride 25 mg oral tablet (4 sources) Antiemetic Start: 09-25-2022 take 25 mg by mouth twice daily Meclizine Active 25 MG PO TWICE A DAY September 24, 2022 11:00pm meloxicam 15 mg oral tablet (2 sources) Nonsteroidal Anti-inflammatory Drug Start: 05-17-2023 take 15 mg by mouth once daily Meloxicam Active 15 MG PO DAILY May 17, 2023 12:00am traMADol hydrochloride 50 mg oral tablet (2 sources) Opioid Agonist Start: 05-17-2023 take 50 mg by mouth at bedtime Tramadol Active 50 MG PO AT BEDTIME May 17, 2023 12:00am Problems Active Problems Problem Classification Problem Date Documented Da te Episodic/Chronic Abdominal pain (9 sources) Abdominal pain; Translations: [Unspecified abdominal pain] 01-30-2018 Episodic Conditions associated with dizziness or vertigo (9 sources) Vertigo; Translations: [Dizziness and giddiness] 09-24-2022 Episodic Gastrointestinal hemorrhage (9 sources) Rectal hemorrhage; Translations: [Hemorrhage of anus and rectum] 01-30-2018 Episodic Nausea and vomiting (9 sources) Nausea and vomiting; Translations: [Nausea with vomiting, unspecified] 09-24-2022 Episodic Other nervous system disorders (7 sources) Unable to walk; Translations: [Difficulty in walking, not elsewhere classified] 09-24-2022 Chronic Other nervous system disorders (2 sources) Difficulty in walking, not elsewhere classified; Translations: [Difficulty in walking] 09-24-2022 Chronic Unclassified (1 source) Other specified neoplasm of uncertain behavior of connective and other soft tissue; Translations: [Other specified neoplasm of uncertain behavior of connective and other soft tissue] Onset: 05-12-2024 Past or Other Problems Problem Classification Problem Date Documented Da te Episodic/Chronic Neoplasms of unspecified nature or uncertain behavior (1 source) Neoplasm of uncertain behavior of skin; Translations: [Neoplasm of uncertain behavior of skin] Onset: 05-12-2024 Episodic Other skin disorders (1 source) Localized swelling, mass and lump, left upper limb; Translations: [Localized swelling, mass and lump, left upper limb] Onset: 05-12-2024 Episodic Sprains and strains (1 source) Strain of muscle(s) and tendon(s) of the rotator cuff of left shoulder, initial encounter; Translations: [Strain of muscle(s) and tendon(s) of the rotator cuff of left shoulder, initial encounter] Onset: 05-15-2024 Episodic Results Test Name Value Interpretation Reference Range Facility 12 Lead EKGon 09-30-2024 12 Lead EKG [facility] Cardi[facility] Services [address] [place] [address] 12 Lead EKG 09/30/24 1354 MR#: [id number] Acct: [id number] Name: DUTCH VAIL Rep #: [id number] : 1955 69 From: Lj Sanchez MD Attending Dr: Dr. Robert Ace DO Status: PRE [facility] Ordering Dr: Robert Ace DO Date: 09/30/24 Location: [facility] Sex: M C Admitted: Test Reason : PREOP Blood Pressure : */* mmHG Vent. Rate : 62 BPM Atrial Rate : 62 BPM P-R Int : 134 ms QRS Dur : 84 ms QT Int : 408 ms P-R-T Axes : 73 44 54 degrees QTcB Int : 414 ms Normal sinus rhythm Normal ECG Confirmed by Lj Sanchez ([id number]), online content editor KYMBERLY BARRAZA ([id number]) on 10/01/2024 10:15:30 AM Referred By: Robert Ace Confirmed By: Lj Sanchez 10/01/24 1015 Date ____ Lj Sanchez MD CC: Dr. Mike Coates MD; Dr. Robert Ace DO Signed Normal [facility] Basic Metabolic Profile (BMP )on 09-30-2024 BUN/CRE 13.2 RATIO Normal 10-20 [facility] Comment on above: Performed By: #### L 500.2500, L100.0100 #### [facility] [address] [place], [address] Calcium [Mass/Vol] 9.3 mg/dL Normal 7.6-11.0 [facility] Comment on above: Performed By: #### L 500.2500, L100.0100 #### [facility] [address] [place], [address] Chloride [Moles/Vol] 106 mmol/L Normal 98-108 [facility] Comment on above: Performed By: #### L 500.2500, L100.0100 #### [facility] [address] [place], [address] CO2 [Moles/Vol] 25.3 mmol/L Normal 21.0-32.0 [facility] Comment on above: Performed By: #### L 500.2500, L100.0100 #### [facility] [address] [place], [address] Creatinine [Mass/Vol] 1.11 mg/dL Normal 0.70-1.20 [facility] Comment on above: Performed By: #### L 500.2500, L100.0100 #### [facility] [address] [place], [address] GAP 11 Normal 5-15 [facility] Comment on above: Performed By: #### L 500.2500, L100.0100 #### [facility] [address] [place], [address] GFR/1.73 sq M.predicted among non-blacks MDRD (S/P/Bld) [Vol rate/Area] 73 mL/min/{1.73_m2} Normal >60 [facility] Comment on above: Result Comment: mL/m in/1.73m2 CKD-EPI Creatinine Equation (2020) Performed By: #### L 500.2500, L100.0100 #### [facility] [address] [place], [address] Glucose [Mass/Vol] 92 mg/dL Normal 70-99 [facility] Comment on above: Performed By: #### L 500.2500, L100.0100 #### [facility] [address] [place], [address] Potassium [Moles/Vol] 4.2 mmol/L Normal 3.3-5.1 [facility] Comment on above: Performed By: #### L 500.2500, L100.0100 #### [facility] [address] [place], [address] Sodium [Moles/Vol] 142 mmol/L Normal 133-145 [facility] Comment on above: Performed By: #### L 500.2500, L100.0100 #### [facility] [address] [place], [address] Urea nitrogen [Mass/Vol] 15 mg/dL Normal 4-19 [facility] Comment on above: Performed By: #### L 500.2500, L100.0100 #### [facility] [address] [place], [address] CBC W/Diff, Automatedon 06- 0-2024 Absolute Lymph 0.93 X10 3/uL Normal 0.83-4.51 [facility] Comment on above: Performed By: #### L 500.2500, L100.0100 #### [facility] [address] [place], [address] Absolute Neut 2.8 X10 3/uL Normal 2.0-7.7 [facility] Comment on above: Performed By: #### L 500.2500, L100.0100 #### [facility] [address] [place], [address] Basophils/100 WBC (Bld) 0.7 % Normal 0-1 [facility] Comment on above: Performed By: #### L 500.2500, L100.0100 #### [facility] [address] [place], [address] Eosinophils/100 WBC (Bld) 0.7 % Normal 0-5 [facility] Comment on above: Performed By: #### L 500.2500, L100.0100 #### [facility] [address] [place], [address] Erythrocyte distribution width (RBC) [Ratio] 12.5 % Normal 11.6-14.6 [facility] Comment on above: Performed By: #### L 500.2500, L100.0100 #### [facility] [address] [place], [address] Hematocrit (Bld) [Volume fraction] 40.2 % Normal 40-54 [facility] Comment on above: Performed By: #### L 500.2500, L100.0100 #### [facility] [address] [place], [address] Hemoglobin (Bld) [Mass/Vol] 13.8 g/dL Normal 13.0-16.5 [facility] Comment on above: Performed By: #### L 500.2500, L100.0100 #### [facility] [address] [place], [address] IG% 0.200 Normal 0.0-0.9 [facility] Comment on above: Result Comment: IG% - Immature Granulocytes (promyelocytes, myelocytes and metamyelocytes) > 1% indicates that a LEFT SHIFT is Present. Performed By: #### L 500.2500, L100.0100 #### [facility] [address] [place], [address] Lymphocytes/100 WBC (Bld) 22.7 % Normal 19-41 [facility] Comment on above: Performed By: #### L 500.2500, L100.0100 #### [facility] [address] [place], [address] MCH (RBC) [Entitic mass] 30.1 pg Normal 27.0-32.0 [facility] Comment on above: Performed By: #### L 500.2500, L100.0100 #### [facility] [address] [place], [address] MCHC (RBC) [Mass/Vol] 34.3 g/dL Normal 32-36 [facility] Comment on above: Performed By: #### L 500.2500, L100.0100 #### [facility] [address] [place], [address] MCV (RBC) [Entitic vol] 87.8 fL Normal 80-94 [facility] Comment on above: Performed By: #### L 500.2500, L100.0100 #### [facility] [address] [place], [address] Monocytes/100 WBC (Bld) 6.8 % Normal 0-10 [facility] Comment on above: Performed By: #### L 500.2500, L100.0100 #### [facility] [address] [place], [address] Neutrophils/100 WBC (Bld) 68.9 % Normal 47-70 [facility] Comment on above: Performed By: #### L 500.2500, L100.0100 #### [facility] [address] [place], [address] Nucleated RBC (Bld) [#/Vol] 0 10*3/uL Normal 0-5 [facility] Comment on above: Performed By: #### L 500.2500, L100.0100 #### [facility] [address] [place], [address] Platelet mean volume (Bld) [Entitic vol] 11.2 fL Normal 6.2-12.0 [facility] Comment on above: Performed By: #### L 500.2500, L100.0100 #### [facility] [address] [place], [address] Platelets (Bld) [#/Vol] 147 10*3/uL Low 150-450 [facility] Comment on above: Performed By: #### L 500.2500, L100.0100 #### [facility] [address] [place], [address] RBC (Bld) [#/Vol] 4.58 10*6/uL Low 4.6-6.2 [facility] Comment on above: Performed By: #### L 500.2500, L100.0100 #### [facility] [address] [place], [address] RDW SD 39.8 fl Normal 35.1-43.9 [facility] Comment on above: Performed By: #### L 500.2500, L100.0100 #### [facility] [address] [place], [address] WBC (Bld) [#/Vol] 4.1 10*3/uL Low 4.4-11.0 [facility] Comment on above: Performed By: #### L 500.2500, L100.0100 #### [facility] [address] [place], [address] Liver Profileon 09-30-2024 Albumin [Mass/Vol] 4.3 g/dL Normal 3.4-4.8 [facility] Comment on above: Performed By: #### L 500.2500, L100.0100 #### [facility] [address] [place], [address] ALK PHOS 56 U/L Normal 40-129 [facility] Comment on above: Performed By: #### L 500.2500, L100.0100 #### [facility] [address] [place], [address] ALT [Catalytic activity/Vol] 12 U/L Normal <=46 [facility] Comment on above: Performed By: #### L 500.2500, L100.0100 #### [facility] [address] [place], [address] AST [Catalytic activity/Vol] 19 U/L Normal <=37 [facility] Comment on above: Performed By: #### L 500.2500, L100.0100 #### [facility] [address] [place], [address] Bilirubin [Mass/Vol] 0.52 mg/dL Normal 0.00-1.30 [facility] Comment on above: Performed By: #### L 500.2500, L100.0100 #### [facility] [address] [place], [address] Bilirubin.direct [Mass/Vol] 0.21 mg/dL Normal 0.00-0.30 [facility] Comment on above: Performed By: #### L 500.2500, L100.0100 #### [facility] [address] [place], [address] Globulin (S) [Mass/Vol] 2.2 g/dL Normal 2.2-4.2 [facility] Comment on above: Performed By: #### L 500.2500, L100.0100 #### [facility] [address] [place], [address] T PROT 6.5 g/dL Normal 5.9-8.4 [facility] Comment on above: Performed By: #### L 500.2500, L100.0100 #### [facility] [address] [place], [address] MR/PATPARISHcy 09-30-2024 MR/SANDOR.ALLEGRA [facility] Medical Records Department [address] [place] [address] PAT - Anesthesia 09/30/24 1624 MR#: [id number] Acct: [id number] Name: DUTCH VAIL Rep #: [id number] : 1955 69 From: Kamaljit Molina MD PCP: Dr. Mike Coates MD Status:PRE SDC Y Race: C Location: [facility] Pre-Assessment Diagnosis/Proposed Procedure Planned Operative Procedure(s): (L) LEFT SHOULDER ARTHROSCOPIC ROTATOR CUFF REPAIR, MINI OPEN SUBPECTORAL BICEPS TENODESIS Anesthesia History Anesthesia History - securities attorney: Anesthesia History - securities attorney Hx Hospitalization No 09/25/24 12:03 Any Problems With Anesthesia No 09/25/24 12:03 Cholinesterase deficiency No 09/25/24 12:03 You/Your Family Experience No 09/25/24 12:03 fever (hyperthermia) with Relationship Recent Exposure to Contagious No 04/04/24 12:43 Disease Does patient have nerve No 09/25/24 12:03 stimulator Patient instructed to have device shut off --Does patient have Pacemaker or ICD? When Was Last Pacemaker Check QUESTION #4 FULL TEXT: You/Your Family Experience fever (hyperthermia) with Anesthesia Last Oral Intake Last Oral intake: Last Oral Intake NPO since Meds taken in AM with sips of water? Meds patient instructed to take am of surgery PONV PONV - securities attorney: PONV - securities attorney Female No 09/25/24 12:03 HX of Motion Sickness No 09/25/24 12:03 HX of N/V After Surgery No 09/25/24 12:03 Non-Smoker Yes 09/25/24 12:03 Duration of Surgery greater Yes 09/25/24 12:03 than 60 minutes Number of Risk Factors 2 09/25/24 12:03 PONV Score Moderate Risk 09/25/24 12:03 Height Weight Height Weight: Anesthesia: Height Weight Height 5 ft 9 in 05/07/24 11:04 Respiratory Assessment Respiratory Assessment - securities attorney: Respiratory Tract Infection Hx - securities attorney Hx Respiratory Tract Infection No 09/25/24 12:03 STOP Sleep Apnea STOP Sleep Apnea - securities attorney: STOP Sleep Apnea - securities attorney Hx Hypertension No 09/25/24 12:03 Hx Sleep Apnea No 09/25/24 12:03 CPAP No 09/25/24 12:03 BIPAP Do you snore loudly (louder No 09/25/24 12:03 than talking or can be heard Do you often feel tired/ No 09/25/24 12:03 fatigued/ sleepy during daytime? Has anyone observed you stop Yes 09/25/24 12:03 breathing during sleep? STOP Results Negative 09/25/24 12:03 QUESTION #5 FULL TEXT : Do you snore loudly (louder than talking or can be heard through closed doors)? Tobacco Use History Tobacco Use History - securities attorney: Tobacco Use History - securities attorney Tobacco Use Smoking Status Never smoker 09/25/24 12:03 Hx Tobacco Use No 09/25/24 12:03 Years Smoking Packs Smoked per Day Smoking Cessation Date was within the last 15 years Hx Smoking Cessation Date Hx Smoking Cessation No 09/25/24 12:03 Counseling Hematologic Medial History Hematologic Hx - securities attorney: Hematologic Medical Hx - community mental health social worker Hx of Blood Transfusion No 09/25/24 12:03 Hx of Transfusion in last 3 No 09/25/24 12:03 Months Date of Last Transfusion (if within last 3 months) Ever experience any problems No 09/25/24 12:03 with transfusion(s)? Specify any problems Hx of Preganancy in last 3 N/A 09/25/24 12:03 Months Nurse Filling Out Transfusion [email or web address] 09/25/24 12:03 Questions: Date: 09/25/24 09/25/24 12:03 Time: 12:06 09/25/24 12:03 Patient unable to answer at this time (ie. confused, unrespo /Reproduction History /Reproductive History - securities attorney: /Reproductive Hx- securities attorney Hx Now Gestational Age (in weeks): EDC: Hx Hx Para Hx Section SAB PFSH Medical History (Updated 09/25/24 @ 12:13 by Chad Miller) Easy bruising History of vertigo Heartburn Back problem Non-smoker History of echocardiogram Hemorrhoids Home Medications ???Medication ???Instructions ???Recorded ???Last Taken ???Type acetaminophen 500 mg capsule 1,000 mg PO Q6H PRN SHOULDER PAIN 05/17/23 05/27/23 History aspirin 81 mg tablet,delayed 81 mg PO BID 05/07/24 Unknown Hist ory release oxycodone 5 mg tablet 5 mg PO 4X/DAY PRN postOp Pain Unknown History Allergy/AdvReac Type Severity Reaction Status Date / Time meloxicam AdvReac Intermediate Other Verified 09/25/24 13:50 Family History Father Hypertension Mother Breast cancer Hypertension Brother CAD (coronary artery disease) Hypertension Surgical History (Updated 09/25/24 @ 12:45 by Chad Miller) (more content not included)... Normal [facility] Magnesiumon 09-30-2024 Magnesium [Mass/Vol] 2.1 mg/dL Normal 1.5-2.2 [facility] Comment on above: Performed By: #### L 500.2500, L100.0100 #### [facility] [address] [place], [address] Partial Thromboplast Timeon 09-30-2024 aPTT Coag (Bld) [Time] 29.2 s Normal 24.1-36.2 [facility] Comment on above: Performed By: #### L 500.2500, L100.0100 #### [facility] [address] [place], [address] Prothrombin Time w/INRon INR Coag (PPP) [Relative time] 1.1 {INR} Normal [facility] Comment on above: Performed By: #### L 500.2500, L100.0100 #### [facility] [address] [place], [address] PT Coag (PPP) [Time] 14.1 s Normal 11.7-14.9 [facility] Comment on above: Performed By: #### L 500.2500, L100.0100 #### [facility] [address] [place], [address] Plastic Surgery Visit Report on 05-07-2024 Plastic Surgery Visit Report [facility] Plastic Reconstructive Surgery [address], [address] [place] [address] OFFICE VISIT Date of Service: 05/07/24 MR#: [id number] Acct: [id number] Name: DUTCH VAIL Rep #: [id number] : 1955 Provider: Dr. Jessica kaufman MD Age/Sex: 68/M Location: [facility] Status: Signed Intake Vital Signs 04/09/24 09:35 05/07/24 11:04 Height 5 ft 9 in 5 ft 9 in Weight: 187 lb 6 oz BMI 27.6 BP 164/88 H 147/81 H Blood Pressure Location Rt brachial Lt brachial Position Sitting Sitting Respiration 18 18 Pulse 74 Temp 97.5 F L 97.6 F L Temp Source Oral Oral Pulse Oximetry (%) 92 98 Oxygen Delivery Method room air room air Intake Visit Reasons: 1 M F/U Chief Complaint: post op Is patient in pain?: Yes (3-07/31) Allergies No Known Allergies Allergy (Verified 05/07/24 11:05) Medications ???Medication ???Instructions ???Recorded ???Confirmed ???Type acetaminophen 500 mg capsule 1,000 mg PO Q6H PRN SHOULDER PAIN 05/17/23 05/07/24 History aspirin 81 mg tablet,delayed 81 mg PO BID 05/07/24 05/07/24 History release oxycodone 5 mg tablet 5 mg PO 4X/DAY PRN 05/07/24 05/07/24 History Have you fallen in the past year?: No Nurse's Note: pt here post op, no issues Subjective Details: Dutch comes in for recheck of the neoplasm removed from his shoulder. He denies any problems. He states he has had no discomfort. Objective Details: The incision is healing satisfactorily. There is no evidence of infection. I applied Aquaphor to the area and demonstrated to the patient how to do this. There is no visible evidence of recurrence but there may be some minimal residual fullness in the area when compared to the opposite side. I will see him back as needed. He is encouraged to call with any problems. Coding Level of Care Code Global Post Op Diagnoses Lipoma D17.9 PFSH Medical History Back problem Non-smoker History of echocardiogram Hemorrhoids Surgical History Partial traumatic metacarpophalangeal amputation of finger S/P rotator cuff repair Family History Father Hypertension Mother Breast cancer Hypertension Brother CAD (coronary artery disease) Hypertension Social History Smoking Status: Never smoker alcohol intake: never substance use type: does not use additional social history: no asa, ibuprofen prn Assessment and Plan (No Qualifiers) Assessment and Plan (1) Lipoma: Status: Acute Plan Details Additional Comments: Follow-up as needed. 05/13/24 1722 Date ____ Jessica Willams MD Cosign Signature: Date ____ (if applicable) CC: Normal [facility] Plastic Surgery Visit Report on 04-09-2024 Plastic Surgery Visit Report [facility] Plastic Reconstructive Surgery [address], [address] [place] [address] OFFICE VISIT Date of Service: 04/09/24 MR#: [id number] Acct: [id number] Name: DUTCH VAIL Rep #: [id number] : 1955 Provider: Dr. Jessica kaufman MD Age/Sex: 68/M Location: [facility] Status: Signed Intake Vital Signs 02/20/24 10:52 04/04/24 12:43 04/09/24 09:35 Height 5 ft 9 in 5 ft 9 in 5 ft 9 in BP 164/88 H Blood Pressure Location Rt brachial Position Sitting Respiration 18 Temp 97.5 F L Temp Source Oral Pulse Oximetry (%) 92 Oxygen Delivery Method room air Intake Visit Reasons: post op Chief Complaint: post op Is patient in pain?: No Allergies No Known Allergies Allergy (Verified 04/09/24 09:36) Medications ???Medication ???Instructions ???Recorded ???Confirmed ???Type acetaminophen 500 mg capsule 1,000 mg PO Q6H PRN SHOULDER PAIN 05/17/23 04/09/24 History Have you fallen in the past year?: No Nurse's Note: pt here for post op appt. ,no issues Subjective Details: Dutch comes in for recheck of the lipoma removed from his left shoulder. He states he has had no pain. Objective Details: The pathology was reviewed with him which demonstrated the shoulder to be consistent with a lipoma. 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 I reviewed this with the patient. Because the nose site returns a benign diagnosis, and there is no further visual lesion present, I advocated for surveillance. In the event that there is any evidence of recurrence, we can proceed with excision. The back excision site is well-approximated. There is no evidence of infection. I applied a large Band-Aid to the area and indicated that he should wear that during the day when he is working and wearing a shirt. He can leave it off at nighttime. The site on the nose appears as a small denuded area consistent with shave biopsy. No evidence of infection is present. Coding Level of Care Code Global Post Op Diagnoses Lipoma of shoulder D17.20 Benign neoplasm of skin of nose D23.39 [facility] Medical History Back problem Non-smoker History of echocardiogram Hemorrhoids Surgical History Partial traumatic metacarpophalangeal amputation of finger S/P rotator cuff repair Family History Father Hypertension Mother Breast cancer Hypertension Brother CAD (coronary artery disease) Hypertension Social History Smoking Status: Never smoker alcohol intake: never substance use type: does not use additional social history: no asa, ibuprofen prn Assessment and Plan (No Qualifiers) Assessment and Plan (1) Lipoma of shoulder: Status: Acute (2) Benign neoplasm of skin of nose: Status: Acute Plan Details Additional Comments: I will see him back after the holidays for recheck of the shoulder site. 04/11/24 0848 Date ____ Jessica Willams MD Cosigner Signature: Date ____ (if applicable) CC: Normal [facility] Upper Ext Joint Only(Routine )on 04-09-2024 Upper Ext Joint Only(Routine) [facility] Imaging Services [address] [place] [id number] Upper Ext Joint Only(Routine) MR#: [id number] Acct: [id number] Name: DUTCH VAIL Rep #: [id number] : 1955 68 From: Sammy Fontana MD PCP: Dr. Mike Coates MD Status: REG CLI Study: Upper Ext Joint Only(Routine) Date of Exam: 06/10/23 Exam# [id number] Ordering Dr: Robert Ace DO [id number] STUDY: MRI LEFT SHOULDER REASON FOR EXAM: Male, 68 years old. IMPINGEMENT SYNDROME, STRAIN, LT SHOULDER PAIN, HX OF RTC SX TECHNIQUE: Standardized fat and water weighted pulse sequences were obtained in all 3 orthogonal planes. COMPARISON: None. ____ FINDINGS: There is supraspinatus and infraspinatus tendinosis with a moderate grade partial thickness articular surface tear of the conjoined distal supraspinatus/infraspinatus tendon, overall measuring 3.0 cm in length (coronal T2 series 5 images 12-15) and 1.5 cm in width (sagittal T2 series 6 images 15-17). There is subscapularis tendinosis. Normal teres minor tendon. Normal supraspinatus muscle. Normal infraspinatus muscle. Normal subscapularis muscle. Normal teres minor muscle. There is a small glenohumeral joint effusion. There is mild enthesopathic subcortical cyst formation of the greater tuberosity of the humeral head. Normal biceps labral complex. Normal intracapsular long biceps tendon. Normal labrum. Normal capsulo-ligamentous complex. Normal rotator interval. There is mild acromioclavicular arthrosis. There is a Type II morphology (curved), with a neutral orientation. There is no subacromial-subdeltoid bursal fluid. Normal visualized coracohumeral and coracoacromial ligaments. Normal quadrilateral space. Normal axillary space. Normal deltoid muscle. Normal trapezius muscle. ____ MRI/Upper Ext Joint Only(Routine) IMPRESSION: Supraspinatus and infraspinatus tendinosis with a 3.0 x 1.5 cm moderate grade partial thickness articular surface tear of the conjoined distal supraspinatus/infraspinatus tendon. Subscapularis tendinosis. Small glenohumeral joint effusion. Mild acromioclavicular arthrosis. Electronically Signed: Sammy Fontana MD at 14:37 EST Reading Location ID and State: [address] [place] [address] , Service support , CC: Dr. Mike Coates MD; Dr. Robert Ace DO Bonbon Cream Warmer: Signed Normal [facility] Discharge Instructionon 03-23 Discharge Instruction [facility] Medical Records Department [address] [place] [address] Instructions for Home/Discharge Instructions 04/04/24 1450 MR#: [id number] Acct: [id number] Name: DUTCH VAIL Rep #: [id number] : 1955 68 From: Jessica Willams MD PCP: Dr. Mike Coates MD Status:REG [facility] Discharge Instructions Dressing / Incision Additional Dressing/Incision Instructions:: Keep your back elevated (recliner position) for the next 3-4 nights to decrease swelling and bruising. May shower over the dressing on your shoulder?but do not scrub. Leave this in place until seen in the office. When there is no further drainage from the nose site, you may leave this Band-Aid off. Take the oral antibiotic (Keflex) 2 times a day until finished. Follow Up Care Please Follow Up With: Jessica Willams MD When: In 1 to 2 weeks Test Results: Test results from this visit will be discussed in further detail at your follow-up appointment, if applicable. Discharge Plan Admission Attending Provider: Jessica Willams Primary Care Provider: Mike Coates Instructions Print Language: Citizen Of The [place] Discharge Orders/Prescriptions Prescriptions: New cephalexin 500 mg capsule 500 mg PO BID 5 Days Qty: 10 0RF No Action acetaminophen 500 mg capsule 1,000 mg PO Q6H PRN (Reason: SHOULDER PAIN) Referrals / Follow Up: Mike Coates MD [Primary Care Provider] - Disposition Disposition (needs filled in before D/C Order can be placed): Home, Self Care 04/04/24 1455 Jessica Willams MD CC: Dr. Mike Coates MD Signed Normal [facility] Operative Reporton 4 Operative Report [facility] Medical Records Department [address] [place] [address] Operative Report 04/04/24 1455 MR#: [id number] Acct: [id number] Name: DUTCH VAIL Rep #: [id number] : 1955 68 From: Jessica Willams MD PCP: Dr. Mike Coates MD Status:REG [facility] Location: [place] [address]- Problems Associated Problem List Diagnoses (1) Neoplasm of uncertain behavior of skin of face: (2) Neoplasm of uncertain behavior of connective and other soft tissue: Operative Report (Standard) Operative Information Date of Procedure: 04/04/24 Pre-Operative Diagnosis: Subcutaneous mass left posterior shoulder Neoplasm of skin of nose Post-Operative Diagnosis: Same Surgery/Procedure Performed: Excision subcutaneous mass left posterior shoulder (3.0 cm) Shave lesion dorsum of nose (0.5 cm) drafter civil: Yes Airborne Operations Manager: Spike Christiansen Tasks completed by high school assistant principal: Retracting Type of Anesthesia: Local RN Documented Start/Stop Times: Operation Date: 04/04/24 13:20 Case Time Into Pre-Op 04/04/24 12:30 Into Room 04/04/24 13:38 Procedure Start 04/04/24 13:57 Procedure End 04/04/24 14:48 Out of Room 04/04/24 14:49 Procedure Start Time: 13:57 Procedure Stop Time: 14:48 Select all DRAINS/GRAFTS/IMPLANTS that apply: None Estimated Blood Loss: Minimal Specimen collected: Yes Description of specimen(s) removed: Subcutaneous mass left posterior shoulder Neoplasm on dorsum of nose Description of surgery: The patient presents with a 4 to 5-year history of a subcutaneous mass on his left posterior shoulder. He presents for excision of the mass with submission for pathologic evaluation. Additionally, he has a neoplasm on the dorsum of the nose with recent growth or change. The patient is brought to the operating room and placed on the operating room table in a right lateral decubitus position. The left posterior shoulder was prepped and draped in the usual sterile fashion. 1 presents Xylocaine with epinephrine is used to inject the periphery of the site as well as the incision line. An incision is made and carried down through the subcutaneous tissue until the mass is identified. 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 This is removed and debrided of all visible components. Hemostasis is performed with electrocautery. The specimen is passed off the operative field to be sent to pathology. The wound is then closed in layers using a 3-0 STRATAFIX suture to close the site in layers. Dermabond, Steri-Strips, and a Tegaderm are placed on the site. We then directed our attention to the neoplasm of the nose and after this is prepped and draped in the usual sterile fashion, 1% Xylocaine with epinephrine is used for local anesthetic. The neoplasm is then shaved at the base and the base full rise. Antibiotic ointment and a Band-Aid are placed on the site. He tolerated the procedure well was taken to the recovery area in an awake and stable condition. Needle and sponge counts are correct. Surgical Findings: As above Complications Complications: No Admit VTE Documentation VTE Mechan Device Prophylaxis: None Reason prophylaxis not ordered: Treatment Not Indicated 04/04/241499 Cosigner Signature (if applicable): CC: Dr. Mike Coates MD; Dr. Jessica Willams MD Signed Normal [facility] Surgery Specimen Level Veda 04-04-2024 Surgery Specimen Level IV Patient Age/Sex Location Account Attending Physician DUTCH VAIL 68/M [facility] [id number] Dr. Jessica Willams MD Specimen: [id number] Received: 04/04/24 Status: MALCOLM Alexander Num: [id number] Spec Type: Lesion Subm Dr: Dr. Jessica Willams MD HEADER OPERATION: Excision subcutaneous mass left shoulder (3.5cm) shave lesion PRE-OP DIAGNOSIS: Neoplasm of uncertain behavior of skin of face, neoplasm of uncertain behavior of connective and other soft tissue TISSUE SUBMITTED: A- Subcutaneous mass left shoulder, B- Shave lesion nose MICROSCOPIC DIAGNOSIS A. Soft tissue mass of left shoulder, excision: Mature adipose tissue consistent with lipoma. B. Skin lesion of nose, shave biopsy: Suggestive of squamous papilloma. See comment. AM. 04/08/2024 COMMENT B. Complete excision of lesion is recommended for definite classification. Clinical correlation is necessary. MICROSCOPIC DESCRIPTION Slides are reviewed. GROSS DESCRIPTION A. Received in fixative is one container labeled with the patient's name and designated Subcutaneous mass left shoulder. The specimen consists of multiple irregular fragments of monroe-yellow adipose tissue that in aggregate measure 2.5 x 2.0 x 1.0 cm. Sections reveal yellow adipose cut surfaces without area of necrosis, cystic degeneration or hemorrhage. The entire specimen is submitted in two cassettes. B. Received in fixative is one container labeled with the patient's name and designated Shave lesion nose. The specimen consists of a shave biopsy of monroe-white skin measuring 0.2 x 0.2 x 0.1cm. The entire specimen is submitted in one cassette. SJ. 04/07/2024 TC:5 CPT:41844u7 Patient Age/Sex Location Account Attending Physician DUTCH VAIL 68/M [facility] [id number] Dr. Jessica Willams MD Signed (signature on file) Dr. Jakob Kuhn DO 04/08/24 1308 Normal [facility] Comment on above: Performed By: #### L 500.2500, L100.0100 #### [facility] [address] [place] [address]. [place], [place], [id number] Plastic Surgery Visit Report on 02-20-2024 Plastic Surgery Visit Report [facility] Plastic Reconstructive Surgery [address] [facility], [address] [place] [address] OFFICE VISIT Date of Service: 02/20/24 MR#: [id number] Acct: [id number] Name: DUTCH VAIL Rep #: [id number] : 1955 Provider: Dr. Jessica kaufman MD Age/Sex: 68/M Location: [facility] Status: Signed Intake Vital Signs 05/31/23 09:04 02/20/24 10:52 Height 5 ft 11 in 5 ft 9 in Weight: 182 lb BMI 26.9 BP 155/85 H Blood Pressure Location Rt brachial Position Sitting Respiration 18 Pulse 78 Pulse Source Monitor Pulse Oximetry (%) 96 Oxygen Delivery Method room air Intake Visit Reasons: SKIN CHECK Chief Complaint: skin check Is patient in pain?: Yes (shoulder) Pain scale (1-10): 2 Allergies No Known Allergies Allergy (Verified 02/20/24 10:41) Medications ???Medication ???Instructions ???Recorded ???Confirmed ???Type acetaminophen 500 mg capsule 1,000 mg PO Q6H PRN SHOULDER PAIN 05/17/23 02/20/24 History Have you fallen in the past year?: No Nurse's Note: consult for skin check [facility] Medical History Back problem Non-smoker History of echocardiogram Hemorrhoids Surgical History Partial traumatic metacarpophalangeal amputation of finger S/P rotator cuff repair Family History Father Hypertension Mother Breast cancer Hypertension Brother CAD (coronary artery disease) Hypertension Social History Smoking Status: Never smoker alcohol intake: never substance use type: does not use additional social history: no asa, ibuprofen prn HPI SKIN CHECK Details: Dutch is a 68-year-old male who presents with a lesion of his nose as well as his left shoulder. He states the lesion of his nose has been there for approximately 1-1/2 years. The lump on his shoulder has been present 4 to 5 years. His family history is significant for a brother and a father with melanoma. His medical history is otherwise noncontributory. ROS General General: Yes good health; No fatigue, fever(s) or weight loss HENMT HENMT: No rhinitis, sore throat/mouth sore, nasal congestion, contacts or glaucoma Endo Endocrine: No thyroid disease, polydipsia, heat intolerance, cold intolerance, hepatitis or excessive urine Skin Skin: Yes changing moles; No Bleeding, bruising or suspicious lesion Musc Musculoskeletal: No joint pain, joint stiffness, muscle weakness, back pain, osteoarthritis or Muscle aches/ myalgia Neuro Neurological: No headache(s), No lightheadedness and No numbness Cardio Cardiovascular: No chest pain, pacemaker, fatigue or shortness of breat with exertion Psych Psychiatric: No depression, claustrophobia or anxiety Resp Respiratory: No spitting up, shortness of breath, sleep apnea, asthma, emphysema, TB, Cough or Smoker Gastro Gastrointestinal: No diarrhea, constipation, blood in stool, nausea, vomiting or abdominal bloating Tripp Hematologic: No anemia, No bleeding and No abnormal bleeding Genitourinary: No urinary frequency, blood in urine or incontinence Exam Details Patient with a subcutaneous mass of the left shoulder at the base of the neck. It is not fixed. The overlying skin is intact. He has a hyperkeratotic lesion on the dorsum of the nose. I reviewed excision of the mass of the shoulder under local anesthetic. The specimen will be sent to pathology for evaluation. I also reviewed shave excision of the lesion of the nose in order to minimize scarring yet obtain specimen for evaluation.. In the event that this is malignant, he will need to have further surgery. We will schedule this under local anesthetic in the near future. Const General: cooperative, healthy appearing, no acute distress and well developed Nutritional Appearance: well nourished Orientation: alert [facility] Head: normal to inspection, normocephalic and atraumatic Ears: hearing grossly normal bilaterally Nose: external nose normal Face and sinus: normal facial exam and face symmetric Mouth: lip normal Eyes General: appearance normal, both eyes and all related structures Eyelids: eyelids normal Pupils: PERRL EOM: EOM intact bilaterally Neck Neck: normal visual inspection and no lymphadenopathy Chest Chest palpation inspection: normal inspection of the chest Resp Effort Inspection: normal respiratory effort Auscultation: clear to auscultation bilaterally Cardio Rate: regular rate Rhythm: regular rhythm Heart Sounds: S1 normal and S2 normal GI Inspection: normal to inspection Palpation: soft and nontender Skin General: no rashes or lesions noted Trauma: no lacerations or (more content not included)... Normal [facility] Absolute lymphocyte countOrd ered By: Barbara Leung on 05-18-2023 Lymphocytes Auto (Unsp spec) [#/Vol] 1.30 10*3/uL 0.83-4.51 [facility] Automated lymphocyte count a s percentage of total leukocytesOrdered By: Barbara Leung on 05-18-2023 Lymphocytes/100 WBC Auto (Unsp spec) 26.9 % 19-41 [facility] Basophil percentageOrdered B y: Barbara Leung on 05-18-2023 Basophils/100 WBC (Bld) 0.8 % 0-1 [facility] Chloride [Moles/Vol] 108 mmol/L 98-107 [facility] Eosinophils/100 WBC (Bld) 1.9 % 0-5 [facility] Glucose [Mass/Vol] 96 mg/dL 74-106 [facility] Hemoglobin (Bld) [Mass/Vol] 15.0 g/dL 13.0-16.5 [facility] Monocytes/100 WBC (Bld) 5.8 % 0-10 [facility] Neutrophils (Bld) [#/Vol] 3.1 10*3/uL 2.0-7.7 [facility] Neutrophils/100 WBC (Bld) 64.4 % 47-70 [facility] Potassium [Moles/Vol] 3.9 mmol/L 3.5-5.1 [facility] Sodium [Moles/Vol] 141 mmol/L 136-145 [facility] WBC (Bld) [#/Vol] 4.8 10*3/uL 4.4-11.0 [facility] Determination of erythrocyte mean corpuscular volume (MCV)Ordered By: Barbara Leung on 05-18-2023 MCV (RBC) [Entitic vol] 89.0 fL 80-94 [facility] Erythrocyte distribution wid th ratioOrdered By: Barbara Leung on 05-18-2023 Erythrocyte distribution width (RBC) [Ratio] 12.1 % 11.6-14.6 [facility] Erythrocyte distribution wid th standard deviationOrdered By: Barbara Leung on 05-18-2023 Erythrocyte distribution width (RBC) [Entitic vol] 39.3 fL 35.1-43.9 [facility] Hematocrit Auto (Bld) [Volum e fraction]Ordered By: Barbara Leung on 05-18-2023 Hematocrit (Bld) [Volume fraction] 44.3 % 40-54 [facility] Immature granulocytes/100 WB C Auto (Bld)Ordered By: Barbara Leung on 05-18-2023 Immature granulocytes/100 WBC (Bld) 0.200 % 0.0-0.9 [facility] Comment on above: IG% - Immature Granu locytes (promyelocytes, myelocytes and metamyelocytes) > 1% indicates that a LEFT SHIFT is Present. Laboratory - Chemistry and C hemistry - challengeOrdered By: Barbara Leung on 05-18-2023 CO2 [Moles/Vol] 31.0 mmol/L 21.0-32.0 [facility] Urea nitrogen/Creatinine [Mass ratio] 15.0 mg/mg 10-20 [facility] - Hematology and Cell countsOrdered By: Barbara Leung on 05-18-2023 MCH (RBC) [Entitic mass] 30.1 pg 27.0-32.0 [facility] MCHC (RBC) [Mass/Vol] 33.9 g/dL 32-36 [facility] Nucleated RBC/100 WBC (Bld) [Ratio] 0 % 0-5 [facility] Platelets (Bld) [#/Vol] 165 10*3/uL 150-450 [facility] No Panel InformationOrdered By: Barbara Leung on 05-18-2023 Estimated GFR (MDRD) Amer 89 mL/min >60 [facility] Comment on above: GFR Calc Estimated GFR (MDRD) Non-Af Amer 74 mL/min >60 [facility] Comment on above: Non- GFR Calc Platelet mean volume Devin-Ec ker (Bld) [Entitic vol]Ordered By: Barbara Leung on 05-18-2023 Platelet mean volume (Bld) [Entitic vol] 10.7 fL 6.2-12.0 [facility] RBC Auto (Bld) [#/Vol]Ordere d By: Barbara Leung on 05-18-2023 RBC (Bld) [#/Vol] 4.98 10*6/uL 4.6-6.2 [facility] Serum or plasma calcium nicole urement (mass/volume)Ordered By: Barbara Leung on 05-18-2023 Calcium [Mass/Vol] 9.2 mg/dL 8.5-10.1 [facility] Serum or plasma creatinine m easurement (mass/volume)Ordered By: Barbara Leung on 05-18-2023 Creatinine [Mass/Vol] 1.07 mg/dL 0.70-1.30 [facility] Comment on above: The validity of the calculated GFR & GFRAA in patients over 70 years has not been determined. Clinical correlation is essential. Serum or plasma urea nitroge n measurement (mass/volume)Ordered By: Barbara Leung on 05-18-2023 Urea nitrogen [Mass/Vol] 16 mg/dL 7-18 [facility] Thin prep Papanicolaou smear with manual screeningOrdered By: Barbara Leung on 05-18-2023 Thin prep Papanicolaou smear with manual screening 2 5-15 [facility] Absolute lymphocyte countOrd ered By: Dr. Escobedo on 09-25-2022 Lymphocytes Auto (Unsp spec) [#/Vol] 1.16 10*3/uL 0.83-4.51 [facility] Basophil percentageOrdered B y: Dr. Escobedo on 09-25-2022 Basophils/100 WBC (Bld) 0.4 % 0-1 [facility] Chloride [Moles/Vol] 110 mmol/L 98-107 [facility] Cholesterol [Mass/Vol] 153 mg/dL <200 [facility] Comment on above: <200 mg/dL Desirable 200-240 mg/dL Borderline >240 mg/dL High Risk Eosinophils/100 WBC (Bld) 0.6 % 0-5 [facility] Glucose [Mass/Vol] 99 mg/dL 74-106 [facility] Neutrophils (Bld) [#/Vol] 3.3 10*3/uL 2.0-7.7 [facility] Neutrophils/100 WBC (Bld) 69.8 % 47-70 [facility] Potassium [Moles/Vol] 3.4 mmol/L 3.5-5.1 [facility] Sodium [Moles/Vol] 142 mmol/L 136-145 [facility] Triglyceride [Mass/Vol] 110 mg/dL <199 [facility] Comment on above: The drugs N-Acetylcy steine and Metamizole may falsely depress this assay.Serum Triglycerides Reference Interval Normal <150 mg/dL Borderline high 150 - 199 mg/dL High 200 - 499 mg/dL Very High > or = 500 mg/dL WBC (Bld) [#/Vol] 4.8 10*3/uL 4.4-11.0 [facility] Blood erythrocytes count (nu mber/volume)Ordered By: Dr. Escobedo on 09-25-2022 RBC (Bld) [#/Vol] 4.80 10*6/uL 4.6-6.2 [facility] Blood hemoglobin measurement (mass/volume)Ordered By: Dr. Escobedo on 09-25-2022 Hemoglobin (Bld) [Mass/Vol] 14.5 g/dL 13.0-16.5 [facility] Blood lymphocytes/100 leukoc ytesOrdered By: Dr. Escobedo on 09-25-2022 Lymphocytes/100 WBC (Bld) 24.4 % 19-41 [facility] Blood monocytes/100 leukocyt esOrdered By: Dr. Escobedo on 09-25-2022 Monocytes/100 WBC (Bld) 4.6 % 0-10 [facility] Blood platelet mean volumeOr dered By: Dr. Escobedo on 09-25-2022 Platelet mean volume (Bld) [Entitic vol] 10.9 fL 6.2-12.0 [facility] Determination of erythrocyte mean corpuscular volume (MCV)Ordered By: Dr. Escobedo on 09-25-2022 MCV (RBC) [Entitic vol] 90.0 fL 80-94 [facility] Glucose Glucometer (dC) [M ass/Vol]Ordered By: Dr. Escobedo on 09-25-2022 Glucose [Mass/Vol] 91 mg/dL 74-106 [facility] Comment on above: MANAGEMENT OF PATIEN T CARE PER NURSING PROTOCOL Hematocrit Auto (Bld) [Volum e fraction]Ordered By: Dr. Escobedo on 09-25-2022 Hematocrit (Bld) [Volume fraction] 43.2 % 40-54 [facility] - Chemistry and C hemistry - challengeOrdered By: Dr. Escobedo on 09-25-2022 CO2 [Moles/Vol] 27.0 mmol/L 21.0-32.0 [facility] Urea nitrogen/Creatinine [Mass ratio] 13.5 mg/mg 10-20 [facility] - Hematology and Cell countsOrdered By: Dr. Escobedo on 09-25-2022 Erythrocyte distribution width (RBC) [Entitic vol] 41.4 fL 35.1-43.9 [facility] Erythrocyte distribution width (RBC) [Ratio] 12.7 % 11.6-14.6 [facility] Immature granulocytes/100 WBC (Bld) 0.200 % 0.0-0.9 [facility] Comment on above: IG% - Immature Granu locytes (promyelocytes, myelocytes and metamyelocytes) > 1% indicates that a LEFT SHIFT is Present. MCH (RBC) [Entitic mass] 30.2 pg 27.0-32.0 [facility] Nucleated RBC/100 WBC (Bld) [Ratio] 0 % 0-5 [facility] MCHC Auto (RBC) [Mass/Vol]Or dered By: Dr. Escobedo on 09-25-2022 MCHC (RBC) [Mass/Vol] 33.6 g/dL 32-36 [facility] No Panel InformationOrdered By: Dr. Escobedo on 09-25-2022 Estimated Creatinine Clearance Calc 73.12 ml/min [facility] Estimated GFR (MDRD) Amer 92 mL/min >60 [facility] Comment on above: GFR Calc Estimated GFR (MDRD) Non-Af Amer 76 mL/min >60 [facility] Comment on above: Non- GFR Calc Thyroid Stimulating Hormone (TSH) 1.66 uIU/mL 0.358-3.74 [facility] Platelets bldOrdered By: Dr. Escobedo on 09-25-2022 Platelets (Bld) [#/Vol] 137 10*3/uL 150-450 [facility] Serum or plasma calcium nicole urement (mass/volume)Ordered By: Dr. Escobedo on 09-25-2022 Calcium [Mass/Vol] 8.8 mg/dL 8.5-10.1 [facility] Serum or plasma cholesterol in HDL measurement (mass/volume)Ordered By: Dr. Escobedo on 09-25-2022 Cholesterol in HDL [Mass/Vol] 41 mg/dL >40 [facility] Comment on above: The drugs N-Acetylcy steine and Metamizole may falsely depress this assay. Reference Range HDL <40 mg/dL Low HDL Cholesterol HDL >or= 60 mg/dL High HDL Cholesterol Serum or plasma cholesterol in VLDL measurement (mass/volume)Ordered By: Dr. Escobedo on 09-25-2022 Cholesterol in VLDL [Mass/Vol] 22 mg/dL 5-40 [facility] Serum or plasma creatinine m easurement (mass/volume)Ordered By: Dr. Escobedo on 09-25-2022 Creatinine [Mass/Vol] 1.04 mg/dL 0.70-1.30 [facility] Comment on above: The validity of the calculated GFR & GFRAA in patients over 70 years has not been determined. Clinical correlation is essential. Serum or plasma low density lipoprotein (LDL) cholesterol measurement (mass/volume)Ordered By: Dr. Escobedo on 09-25-2022 Cholesterol in LDL [Mass/Vol] 90 mg/dL 0-130 [facility] Serum or plasma urea nitroge n measurement (mass/volume)Ordered By: Dr. Escobedo on 09-25-2022 Urea nitrogen [Mass/Vol] 14 mg/dL 7-18 [facility] Thin prep Papanicolaou smear with manual screeningOrdered By: Dr. Escobedo on 09-25-2022 Thin prep Papanicolaou smear with manual screening 5 5-15 [facility] Whole blood hemoglobin A1c/t otal hemoglobin ratio (mass fraction)Ordered By: Dr. Escobedo on 09-25-2022 HbA1c (Bld) [Mass fraction] 5.2 % 3.8-5.6 [facility] Comment on above: Normal < 5.7 % Predi abetic 5.7 - 6.4 % Diabetic >or= 6.5 % Please note range changes. Absolute lymphocyte countOrd ered By: Dr. Man on 09-24-2022 Lymphocytes Auto (Unsp spec) [#/Vol] 1.25 10*3/uL 0.83-4.51 [facility] Basophil percentageOrdered B y: Dr. Escobedo on 09-24-2022 Basophil percentage 3.1 mg/dL 2.5-4.9 [facility] Basophil percentageOrdered B y: Dr. Man on 09-24-2022 Basophils/100 WBC (Bld) 0.5 % 0-1 [facility] Bilirubin [Mass/Vol] 0.50 mg/dL 0.20-1.00 [facility] Comment on above: For patients on eltr ombopag therapy, use of Dimension [place] TBIL is not recommended. Chloride [Moles/Vol] 110 mmol/L 98-107 [facility] Eosinophils/100 WBC (Bld) 2.4 % 0-5 [facility] Glucose [Mass/Vol] 129 mg/dL 74-106 [facility] Comment on above: Fasting Glucose resu lt greater than or equal to 126 mg/dL suggests DIABETES MELLITUS per A.D.A. criteria. Neutrophils (Bld) [#/Vol] 2.2 10*3/uL 2.0-7.7 [facility] Neutrophils/100 WBC (Bld) 58.3 % 47-70 [facility] Potassium [Moles/Vol] 3.8 mmol/L 3.5-5.1 [facility] Protein [Mass/Vol] 6.4 g/dL 6.4-8.2 [facility] Sodium [Moles/Vol] 142 mmol/L 136-145 [facility] WBC (Bld) [#/Vol] 3.8 10*3/uL 4.4-11.0 [facility] Blood erythrocytes count (nu mber/volume)Ordered By: Dr. Man on 09-24-2022 RBC (Bld) [#/Vol] 4.82 10*6/uL 4.6-6.2 [facility] Blood hemoglobin measurement (mass/volume)Ordered By: Dr. Man on 09-24-2022 Hemoglobin (Bld) [Mass/Vol] 14.5 g/dL 13.0-16.5 [facility] Blood lymphocytes/100 leukoc ytesOrdered By: Dr. Man on 09-24-2022 Lymphocytes/100 WBC (Bld) 33.2 % 19-41 [facility] Blood monocytes/100 leukocyt esOrdered By: Dr. Man on 09-24-2022 Monocytes/100 WBC (Bld) 5.6 % 0-10 [facility] Blood platelet mean volumeOr dered By: Dr. Man on 09-24-2022 Platelet mean volume (Bld) [Entitic vol] 10.7 fL 6.2-12.0 [facility] Determination of erythrocyte mean corpuscular volume (MCV)Ordered By: Dr. Man on 09-24-2022 MCV (RBC) [Entitic vol] 89.8 fL 80-94 [facility] Hematocrit Auto (Bld) [Volum e fraction]Ordered By: Dr. Man on 09-24-2022 Hematocrit (Bld) [Volume fraction] 43.3 % 40-54 [facility] Laboratory - Chemistry and C hemistry - challengeOrdered By: Dr. Man on 09-24-2022 ALP [Catalytic activity/Vol] 51 U/L 45-117 [facility] ALT [Catalytic activity/Vol] 18 U/L 16-61 [facility] CO2 [Moles/Vol] 28.0 mmol/L 21.0-32.0 [facility] Globulin (S) [Mass/Vol] 2.8 g/dL 2.2-4.2 [facility] Urea nitrogen/Creatinine [Mass ratio] 17.9 mg/mg 10-20 [facility] Laboratory - Chemistry and C hemistry - challengeOrdered By: Dr. Escobedo on 09-24-2022 Magnesium [Mass/Vol] 2.1 mg/dL 1.6-2.6 [facility] Laboratory - Hematology and Cell countsOrdered By: Dr. Man on 09-24-2022 Erythrocyte distribution width (RBC) [Entitic vol] 41.1 fL 35.1-43.9 [facility] Erythrocyte distribution width (RBC) [Ratio] 12.6 % 11.6-14.6 [facility] Immature granulocytes/100 WBC (Bld) 0.000 % 0.0-0.9 [facility] Comment on above: IG% - Immature Granu locytes (promyelocytes, myelocytes and metamyelocytes) > 1% indicates that a LEFT SHIFT is Present. MCH (RBC) [Entitic mass] 30.1 pg 27.0-32.0 [facility] Nucleated RBC/100 WBC (Bld) [Ratio] 0 % 0-5 [facility] MCHC Auto (RBC) [Mass/Vol]Or dered By: Dr. Man on 09-24-2022 MCHC (RBC) [Mass/Vol] 33.5 g/dL 32-36 [facility] No Panel InformationOrdered By: Dr. Man on 09-24-2022 Estimated GFR (MDRD) Amer 85 mL/min >60 [facility] Comment on above: GFR Calc Estimated GFR (MDRD) Non-Af Amer 70 mL/min >60 [facility] Comment on above: Non- GFR Calc Troponin I High Sensitivity 5 pg/mL 3.0-78.0 [facility] Comment on above: Please Note: New Ruthie t Units and Gender Specific Reference Ranges. For more information see Policy Stat Procedure [place] High Sensitivity Troponin (TNIH) and attachments. Platelets bldOrdered By: Dr. Man on 09-24-2022 Platelets (Bld) [#/Vol] 138 10*3/uL 150-450 [facility] Serum or plasma albumin nicole urement (mass/volume)Ordered By: Dr. Man on 09-24-2022 Albumin [Mass/Vol] 3.6 g/dL 3.2-5.0 [facility] Serum or plasma albumin/glob ulin mass ratioOrdered By: Dr. Man on 09-24-2022 Albumin/Globulin [Mass ratio] 1.3 {ratio} 0.9-2.4 [facility] Serum or plasma calcium nicole urement (mass/volume)Ordered By: Dr. Man on 09-24-2022 Calcium [Mass/Vol] 8.4 mg/dL 8.5-10.1 [facility] Serum or plasma creatinine m easurement (mass/volume)Ordered By: Dr. Man on 09-24-2022 Creatinine [Mass/Vol] 1.12 mg/dL 0.70-1.30 [facility] Comment on above: The validity of the calculated GFR & GFRAA in patients over 70 years has not been determined. Clinical correlation is essential. Serum or plasma urea nitroge n measurement (mass/volume)Ordered By: Dr. Man on 09-24-2022 Urea nitrogen [Mass/Vol] 20 mg/dL 7-18 [facility] Thin prep Papanicolaou smear with manual screeningOrdered By: Dr. Man on 09-24-2022 Thin prep Papanicolaou smear with manual screening 21 U/L 15-37 [facility] Thin prep Papanicolaou smear with manual screening 4 5-15 [facility] Absolute lymphocyte counton 09-16-2021 Lymphocytes Auto (Unsp spec) [#/Vol] 1.13 10*3/uL 0.83-4.51 [facility] Work Phone: Basophil percentageon 2021 Basophils/100 WBC (Bld) 0.6 % 0-1 [facility] Work Phone: [phone] Bilirubin [Mass/Vol] 1.00 mg/dL 0.20-1.00 [facility] Work Phone: [phone] Comment on above: For patients on eltr ombopag therapy, use of Dimension [place] TBIL is not recommended. Chloride [Moles/Vol] 109 mmol/L 98-107 [facility] Work Phone: Cholesterol [Mass/Vol] 133 mg/dL <200 [facility] Work Phone: [phone] Comment on above: <200 mg/dL Desirable 200-240 mg/dL Borderline >240 mg/dL High Risk Eosinophils/100 WBC (Bld) 1.1 % 0-5 [facility] Work Phone: [phone] Glucose [Mass/Vol] 89 mg/dL 74-106 [facility] Work Phone: Neutrophils (Bld) [#/Vol] 2.2 10*3/uL 2.0-7.7 [facility] Work Phone: Neutrophils/100 WBC (Bld) 61.1 % 47-70 [facility] Work Phone: Potassium [Moles/Vol] 3.7 mmol/L 3.5-5.1 [facility] Work Phone: [phone] Protein [Mass/Vol] 6.7 g/dL 6.4-8.2 [facility] Work Phone: Sodium [Moles/Vol] 142 mmol/L 136-145 [facility] Work Phone: Triglyceride [Mass/Vol] 87 mg/dL [facility] Work Phone: [phone] Comment on above: The drugs N-Acetylcy steine and Metamizole may falsely depress this assay.Serum Triglycerides Reference Interval Normal <150 mg/dL Borderline high 150 - 199 mg/dL High 200 - 499 mg/dL Very High > or = 500 mg/dL WBC (Bld) [#/Vol] 3.6 10*3/uL 4.4-11.0 [facility] Work Phone: [phone] Blood erythrocytes count (nu mber/volume)on 09-16-2021 RBC (Bld) [#/Vol] 4.71 10*6/uL 4.6-6.2 [facility] Work Phone: [phone] Blood hemoglobin measurement (mass/volume)on 09-16-2021 Hemoglobin (Bld) [Mass/Vol] 14.4 g/dL 13.0-16.5 [facility] Work Phone: Blood lymphocytes/100 leukoc yteson 09-16-2021 Lymphocytes/100 WBC (Bld) 31.1 % 19-41 [facility] Work Phone: Blood monocytes/100 leukocyt eson 09-16-2021 Monocytes/100 WBC (Bld) 5.8 % 0-10 [facility] Work Phone: Blood platelet mean volumeon 09-16-2021 Platelet mean volume (Bld) [Entitic vol] 10.6 fL 6.2-12.0 [facility] Work Phone: [phone] Determination of erythrocyte mean corpuscular volume (MCV)on 09-16-2021 MCV (RBC) [Entitic vol] 88.7 fL 80-94 [facility] Work Phone: [phone] Hematocrit Auto (Bld) [Volum e fraction]on 09-16-2021 Hematocrit (Bld) [Volume fraction] 41.8 % 40-54 [facility] Work Phone: [phone] Laboratory - Chemistry and C hemistry - challengeon 09-16-2021 ALP [Catalytic activity/Vol] 51 U/L 45-117 [facility] Work Phone: [phone] ALT [Catalytic activity/Vol] 20 U/L 16-61 [facility] Work Phone: [phone] CO2 [Moles/Vol] 27.0 mmol/L 21.0-32.0 [facility] Work Phone: [phone] Globulin (S) [Mass/Vol] 2.8 g/dL 2.2-4.2 [facility] Work Phone: Urea nitrogen/Creatinine [Mass ratio] 14.3 mg/mg 10-20 [facility] Work Phone: Laboratory - Hematology and Cell countson 09-16-2021 Erythrocyte distribution width (RBC) [Entitic vol] 40.3 fL 35.1-43.9 [facility] Work Phone: Erythrocyte distribution width (RBC) [Ratio] 12.3 % 11.6-14.6 [facility] Work Phone: Immature granulocytes/100 WBC (Bld) 0.300 % 0.0-0.9 [facility] Work Phone: Comment on above: IG% - Immature Granu locytes (promyelocytes, myelocytes and metamyelocytes) > 1% indicates that a LEFT SHIFT is Present. MCH (RBC) [Entitic mass] 30.6 pg 27.0-32.0 [facility] Work Phone: Nucleated RBC/100 WBC (Bld) [Ratio] 0 % 0-5 [facility] Work Phone: MCHC Auto (RBC) [Mass/Vol]on 09-16-2021 MCHC (RBC) [Mass/Vol] 34.4 g/dL 32-36 [facility] Work Phone: No Panel Informationon 09-16 Estimated GFR (MDRD) Amer 85 mL/min >60 [facility] Work Phone: Comment on above: GFR Calc Estimated GFR (MDRD) Non-Af Amer 70 mL/min >60 [facility] Work Phone: Comment on above: Non- GFR Calc Prostate Specific Antigen Screen 1.63 ng/mL 0.00-4.00 [facility] Work Phone: Comment on above: This test was perfor med using the TPSA assay method for the[facility] chemistry system. Values obtained with differentassay methods cannot be used interchangably.When changing PSA assays in the course of monitoring apatient, additional sequential testing should be carriedout to confirm baseline values. Platelets bldon 09-16-2021 Platelets (Bld) [#/Vol] 145 10*3/uL 150-450 [facility] Work Phone: Serum or plasma albumin nicole urement (mass/volume)on 09-16-2021 Albumin [Mass/Vol] 3.9 g/dL 3.2-5.0 [facility] Work Phone: Serum or plasma albumin/glob ulin mass ratioon 09-16-2021 Albumin/Globulin [Mass ratio] 1.4 {ratio} 0.9-2.4 [facility] Work Phone: Serum or plasma calcium nicole urement (mass/volume)on 09-16-2021 Calcium [Mass/Vol] 8.7 mg/dL 8.5-10.1 [facility] Work Phone: Serum or plasma cholesterol in HDL measurement (mass/volume)on 09-16-2021 Cholesterol in HDL [Mass/Vol] 45 mg/dL [facility] Work Phone: Comment on above: The drugs N-Acetylcy steine and Metamizole may falsely depress this assay. Reference Range HDL <40 mg/dL Low HDL Cholesterol HDL >or= 60 mg/dL High HDL Cholesterol Serum or plasma cholesterol in VLDL measurement (mass/volume)on 09-16-2021 Cholesterol in VLDL [Mass/Vol] 17 mg/dL 5-40 [facility] Work Phone: Serum or plasma creatinine m easurement (mass/volume)on 09-16-2021 Creatinine [Mass/Vol] 1.12 mg/dL 0.70-1.30 [facility] Work Phone: Comment on above: The validity of the calculated GFR & GFRAA in patients over 70 years has not been determined. Clinical correlation is essential. Serum or plasma low density lipoprotein (LDL) cholesterol measurement (mass/volume)on 09-16-2021 Cholesterol in LDL [Mass/Vol] 71 mg/dL 0-130 [facility] Work Phone: Serum or plasma urea nitroge n measurement (mass/volume)on 09-16-2021 Urea nitrogen [Mass/Vol] 16 mg/dL 7-18 [facility] Work Phone: Thin prep Papanicolaou smear with manual screeningon 09-16-2021 Thin prep Papanicolaou smear with manual screening 14 U/L 15-37 [facility] Work Phone: Thin prep Papanicolaou smear with manual screening 6 5-15 [facility] Work Phone: MSCon 09-20-2018 [facility] DATE OF SERVICE: HISTORY OF PRESENT ILLNESS: This 63-year-old male presents today exposed to poison altagracia. He was clearing out a tree. He got the poison altagracia on him several days ago and he states that it is pretty itchy. He is getting ready to go to [place] in a few days and he wanted to get cleared up if he could. ALLERGIES: No known drug allergies. PAST MEDICAL HISTORY: Positive for poison altagracia before. HABITS: Nonsmoker; does drink alcohol. FAMILY HISTORY: Positive for cancer, high blood pressure. SOCIAL HISTORY: Unremarkable. PHYSICAL EXAMINATION: Weight 182 pounds, blood pressure 138/82; pulse 70; respirations 16; temperature is 98.2; pulse oximetry is 98. Last tetanus was 2013. This is a 63-year-old male with diffuse rhus dermatitis rash on his arms. He has it on his abdomen. He said he has it on his genital area but I did not check there. Heart regular rate and rhythm. Lungs are clear. Extremities and neurologic are grossly intact. IMPRESSION: Rhus dermatitis. PLAN: Patient is given Kenalog 80 mg IM and placed on dexamethasone in a tapering dose. Rest, fluids. Finish all medicines. Follow in 7 to 10 days; sooner if complications or problems arise. DO KENNETH Betancourt/[id number] SSI File#: [id number] Verified/Reviewed by 09/30/1805 [facility] PATIENT NAME: DUTCH VAIL [address] Cm MEDICAL REC #: [id number] [place] [address] [facility] REPORT [facility] PHYSICIAN Normal [facility] Vital Signs Date Time Vital Sign Value Performing Clinician Troy walters 05-31-2023 13:39-0500 Body temperature 97.6 [degF] [facility] 05-31-2023 13:39-0500 Diastolic blood pressure 73 mm[Hg] [facility] 05-31-2023 13:39-0500 Heart rate 68 /min [facility] 05-31-2023 13:39-0500 Respiratory rate 16 /min [facility] 05-31-2023 13:39-0500 SaO2% (BldA) [Mass fraction] 98 % [facility] 05-31-2023 13:39-0500 Systolic blood pressure 116 mm[Hg] [facility] 05-31-2023 09:04-0500 Body height 180.34 cm [facility] 05-31-2023 09:04-0500 Body mass index (BMI) [Ratio] 25.2 kg/m2 [facility] 05-31-2023 09:04-0500 Body weight 82.1 kg [facility] 09-25-2022 10:00-0400 Body temperature 97.7 [degF] Dr. Mike Coates Work Phone: [facility] 09-25-2022 10:00-0400 Diastolic blood pressure 83 mm[Hg] Dr. Mike Coates Work Phone: [facility] 09-25-2022 10:00-0400 Heart rate 52 /min Dr. Mike Coates Work Phone: [facility] 09-25-2022 10:00-0400 Respiratory rate 16 /min Dr. Mike Coates Work Phone: [facility] 09-25-2022 10:00-0400 SaO2% (BldA) [Mass fraction] 100 % Dr. Mike Coates Work Phone: [facility] 09-25-2022 10:00-0400 Systolic blood pressure 136 mm[Hg] Dr. Mike Coates Work Phone: [facility] 09-25-2022 03:03-0400 Body mass index (BMI) [Ratio] 25.9 kg/m2 Dr. Mike Coates Work Phone: [facility] 09-24-2022 11:13-0400 Body height 177.[address] Mike Coates Work Phone: [facility] 09-24-2022 11:13-0400 Body weight 81.[address] Mike Coates Work Phone: [facility] 09-24-2022 11:09-0400 Body temperature 97.7 [degF] [facility] 09-24-2022 11:09-0400 Diastolic blood pressure 76 mm[Hg] [facility] 09-24-2022 11:09-0400 Heart rate 84 /min [facility] 09-24-2022 11:09-0400 Respiratory rate 14 /min [facility] 09-24-2022 11:09-0400 SaO2% (BldA) [Mass fraction] 99 % [facility] 09-24-2022 11:09-0400 Systolic blood pressure 135 mm[Hg] [facility] 09-24-2022 07:02-0400 Body height 175.26 cm [facility] Encounters Encounter Date Encounter Type Care Provider Facility Start: 10-21-2024 ambulatory Isabell Gregorio Facility :[facility] Start: 10-06-2024 ambulatory Mike Coates Facility:[facility] Start: 10-03-2024 Encounter for other preprocedural examination Robert Ace [facility] Start: 05-07-2024 End: 05-07-2024 ambulatory Mike Coates Facility:[facility] Start: 04-09-2024 End: 04-09-2024 ambulatory Mike Coates Facility:[facility] Start: 04-09-2024 End: 04-09-2024 ambulatory Mike Coates Facility:[facility] Start: 04-04-2024 ambulatory Jessica Willams Facility :[facility] Start: 04-04-2024 End: 04-04-2024 ambulatory Mike Coates Facility:[facility] Start: 02-20-2024 End: 02-20-2024 ambulatory Mike Coates Facility:[facility] Start: 10-17-2023 End: 10-17-2023 ambulatory Robert Ace Facility:[facility] Start: 05-31-2023 End: 05-31-2023 Admission to same day surgery center [facility] Start: 05-31-2023 End: 05-31-2023 ambulatory [facility] Work Phone: Start: 05-18-2023 End: 05-18-2023 ambulatory [facility] Work Phone: Start: 05-18-2023 End: 05-18-2023 [facility] [place] [facility]: Start: 05-04-2023 End: 05-04-2023 ambulatory [facility] Work Phone: Start: 05-04-2023 End: 05-04-2023 Patient encounter procedure [facility] Work Phone: Start: 04-06-2023 End: 04-06-2023 ambulatory [facility] Work Phone: Start: 04-06-2023 End: 04-06-2023 Patient encounter procedure [facility] [place] Work Phone: Start: 04-02-2023 End: 04-02-2023 ambulatory [facility] Work Phone: Start: 04-02-2023 End: 04-02-2023 Discharged Recurring [facility]Physical Therapy Work Phone: Start: 09-25-2022 Non-patient / Non-visit Dr. Colton Coates Work Phone: [facility] Start: 09-25-2022 Non-patient / Non-visit Dr. Colton Coates Work Phone: [facility] Start: 09-24-2022 Non-patient / Non-visit Dr. Colton Coates Work Phone: [facility] Start: 09-24-2022 End: 09-25-2022 Evaluation and management of inpatient [facility]Progressive Care Unit Start: 09-24-2022 End: 09-25-[address] Mike Coates Work Phone: [facility] Work Phone: Start: 09-20-2021 End: 09-20-2021 Patient encounter procedure [facility] [place] Start: 09-16-2021 End: 09-16-2021 Patient encounter procedure [facility] [place] Procedures Date Procedure Procedure Detail Performing Clinician Start: 05-31-2023 Repair of musculoten dinous cuff of shoulder Start: 05-04-2023 MRI of joint of lowe r extremity Start: 04-06-2023 Plain X-ray of shoulder Start: 09-24-2022 CT angiography of he ad and neck Start: 09-20-2021 Plain chest X-ray Plan of Treatment Date Care Activity Detail Author Start: 05-31-2023 Application of ice c ollar, cap or bag [facility] Start: 05-31-2023 Patient discharge [facility] Start: 05-31-2023 Catheterization of vein [facility] Start: 05-31-2023 Following clinical p athway protocol [facility] Start: 05-31-2023 Procedure discontinued [facility] Start: 05-31-2023 Taking patient vital signs [facility] Start: 05-31-2023 Vital signs measurements [facility] Start: 05-31-2023 [facility] Start: 05-31-2023 Medication education [facility] Start: 09-25-2022 Patient discharge [facility] Start: 09-25-2022 MR Brain WO contrast [facility] Start: 09-25-2022 MRI of brain without contrast Brain without Contrast [facility] Start: 09-25-2022 Thyroid stimulating hormone measurement [facility] Start: 09-24-2022 Following clinical p athway protocol [facility] Start: 09-24-2022 Ambulation without limitation [facility] Start: 09-24-2022 Assessment of risk o f venous thromboembolism [facility] Start: 09-24-2022 Cardiac monitoring [facility] Start: 09-24-2022 Catheterization of vein [facility] Start: 09-24-2022 Continuous pulse oximetry [facility] Start: 09-24-2022 Elevation of head of bed [facility] Start: 09-24-2022 Exercises [facility] Start: 09-24-[address] anned interventions [facility] Start: 09-24-2022 Insertion of cathete r into peripheral vein [facility] Start: 09-24-2022 Measuring intake and output [facility] Start: 09-24-2022 Notification of physician [facility] Start: 09-24-2022 Oxygen therapy [facility] Start: 09-24-2022 Providing care accor ding to standard [facility] Start: 09-24-2022 Referral to occupati onal therapist [facility] Start: 09-24-2022 Referral to service [facility] Start: 09-24-2022 Speech therapy assessment [facility] Start: 09-24-2022 Tobacco use cessatio n education [facility] Start: 09-24-2022 [facility] Start: 09-24-2022 Verification routine [facility] Start: 09-24-2022 Admission procedure [facility] Magnesium [Mass/volu me] in Serum or Plasma [facility] Patient referral [facility] Work Phone: Payers Date Payer Category Payer Self-pay [id number] 2023 Unknown [id number] Medicare MEDICARE A ONLY [id number] Medicare MEDICARE A ONLY [id number] Private Health Insurance [id number] Unknown [id number] Unknown [id number] Unknown [id number] Unknown [id number] Unknown [id number] Unknown [id number] Unknown [id number] Unknown [id number] Unknown [id number] Social History Date Type Detail Facility Start: 01-31-2018 End: 09-25-2022 Tobacco smoking status NHIS Unknown if ever smoked [facility] Start: 1955 Sex Assigned At Male [facility] Goals Date Patient Goal Desired Activity /State Functional Status Date Assessment Result Facility 09-25-2022 Functional status Ambulates;Chair [facility] Work Phone: Mental Status Date Assessment Result Facility 05-31-2023 Cognitive function Voice/Name [facility] Work Phone: 09-24-2022 Cognitive function Awake;Alert;A ppropriate;Fol lows Commands [facility] Work Phone: Clinical Notes 09-24-2022 to 09-28-2024 Note Date & Type Note Facility 09-28-2024 Note [facility] Medical Records Department [address] [place] [place] [address] History Physical Exam 09/28/242110 MR#: [id number] Acct: [id number] Name: DUTCH VAIL Rep #: [id number] : 1955 69 From: Isabell SHELDON PCP: Dr. Mike Coates MD Status:PRE [facility] [place] [facility] Location: [facility] History and Physical History and Physical Patient Name: Dutch VailDOB: 1955 From: DATE OF PRE-OPERATIVE EXAM: 09/17/2024 DATE OF SURGERY: 10/06/2024 SCHEDULED PROCEDURE: Left shoulder arthroscopic rotator cuff repair, mini open subpectoral biceps tenodesis. HISTORY OF PRESENT ILLNESS: Chinedu Vail, a 69-year-old male, returns for a check of his left shoulder. He reports ongoing shoulder pain that interferes with his sleep. Chinedu expresses a desire for surgery, stating he doesn't want to continue taking pain medication regularly. He mentions doing some exercises with 3 to 5 pound weights as previously instructed in therapy. Chinedu notes difficulty performing push-ups, currently able to do about 15 'girl push-ups' on his knees. He also reports feeling a hard, firm muscle in his shoulder area. REVIEW OF SYSTEMS: Review Of Systems: Constitutional: Denies change in appetite, fever and weight change. Cardiovasular: Denies chest pain, heart murmur and irregular heartbeat. Respiratory: Denies cough, pneumonia, shortness of breath, tuberculosis and wheezing. Gastrointestinal: Denies constipation, diarrhea, heartburn, nausea, rectal itching, bloody stools and vomiting. Genitourinary: Denies urinary symptoms. Musculoskeletal: Denies leg swelling, pain, trouble walking and weakness. Skin: Denies Raynaud's, history of shingles and tattoo. Neurological: Denies ambulatory dysfunction, dizziness, numbness/tingling and tremor. Psychiatric: Denies anxiety, insomnia and stress. Hematologic/Lymphatic: Denies anemia, bleeding/bruising tendency and past transfusion. Reviewed, no changes. PAST MEDICAL HISTORY: Advance Care Plan: No Advance Directives Effective Date: 04/06/2023 Past Medical History: Medical Problems: Vertigo - WAS IN HOSPITAL FOR 2 DAYS Accidents: Fall - (02/20/2023) slipped on wet leaves and landed on elbow and right shoulder Surgical Hx: RT LT shoulder arthroscopy RT Shoulder, Arthroscopic Rotator Cuff Repair, [place] - (05/31/2023) MIGUEL @ [facility] LT Shoulder Mass Removal - (03/2024) DR. WILLAMS-[facility] Anesthesia Complications: None Assistive Devices: Glasses Reviewed, no changes. SOCIAL HISTORY: Social History: Marital: .Occupation: Retired.Work Status: Retired.Hand Dominance: Right-handed. Personal Habits: Cigarette Use: Never Smoked Cigarettes.Smokeless Tobacco: Never Used Smokeless Tobacco.E-Cigarette Use: Never used.Alcohol: Weekly use.Drug Use: Denies Use.Enjoy Exercising: Exercises 1-3 X/Week. Reviewed, no changes. VITALS: Ht: 70 Wt: 182lb Wt k.555 BMI: 26.1 BP: 134/80 Pulse: 63 Resp: 16 T: 97.8 T: 36.6C Pain Level: 0/10 O2SatR: 97 ALLERGIES: Meloxicam MEDICATIONS: Oxycodone HCL 5 mg 1-2 tab by mouth every 6 hours PRE-OP EXAM: General appearance:NORMAL Other: Eyes: Conjunctivae and lids: NORMAL Pupils: ERR Ears, Nose, Mouth, and Throat: NORMAL Other: Inspection of lips, teeth and gums: NORMAL Other: Neck: Examination of neck: no masses noted. Respiratory: Assessment of respiratory effort: NORMAL Other: Auscultation of lungs: clear to auscultation no wheezes, rhonchi or rales. Cardiovascular: Auscultation of heart: regular rate and rhythm, no murmurs, gallops or rubs. Exam of carotid arteries: NORMAL Other: Gastrointestinal: Exam of abdomen: soft, nontender, nondistended bowel sounds present. Lymphatic: Palpation of nodes in neck: NORMAL Other: Palpation of nodes in Axillae: NORMAL Other: Neurological: see below Psychiatric: Orientation to time, place and person: NORMAL Other: Mood and affect: NORMAL Other: PHYSICAL EXAMINATION: Alert and oriented ???3, no acute distress. Normal mood and affect. Normal gait. Left shoulder: Bicipital groove tenderness left. Active forward flexion 160, external rotation 20, internal rotation L3. Pain but 5/5 strength with empty can. Positive speeds, positive Apache's. Positive Fairchild left. Sensation intact light touch throughout. Radial pulse 2+, brisk refill in the fingertips. 5/5 strength for shoulder abduction, internal and external rotation. No rashes or lesions. IMAGING STUDIES: MRI again reviewed from [place] 04/09/24 left shoulder See report for full details Agree with radiology interpretation Supraspinatus and infraspinous tendinosis with a 3.0 x 1.5 cm moderate grade partial thickness articular side tear of the supraspinatus/infraspinatus tendon Subscapularis tendinosis Small joint effusion Mild acromioclavicular joint arthrosis Subacromial spur IMPRESSION: 1. Vertigo 2. Left marcella (more content not included)... [facility] 04-04-2024 Note [facility] Medical Records Department [address] [place] [address] History Physical Exam 04/04/24 1330 MR#: [id number] Acct: [id number] Name: DUTCH VAIL Rep #: [id number] : 1955 68 From: Jessica Willams MD PCP: Dr. Mike Coates MD Status:[facility] Location: [address] General Date of Service: 04/04/24 Chief Complaint: Lump of his shoulder and lesion of his nose. HPI Narrative DUTCH VAIL, is a 68 M who presents with a subcutaneous mass of the left posterior shoulder which has been there for several years but has been noted to enlarge. He also has a hyperkeratotic lesion on the dorsum of the nose with recent growth or change. [facility] Medical History Back problem Non-smoker History of echocardiogram Hemorrhoids Home Medications ???Medication ???Instructions ???Recorded ???Last Taken ???Type acetaminophen 500 mg capsule 1,000 mg PO Q6H PRN SHOULDER PAIN 05/17/23 05/27/23 History Allergy/AdvReac Type Severity Reaction Status Date / Time No Known Allergies Allergy Verified 04/04/24 12:41 Family History Father Hypertension Mother Breast cancer Hypertension Brother CAD (coronary artery disease) Hypertension Surgical History Partial traumatic metacarpophalangeal amputation of finger S/P rotator cuff repair Social History Smoking Status: Never smoker alcohol intake: never substance use type: does not use additional social history: no asa, ibuprofen prn Vital Signs Vital Signs Vital Signs: 04/04/24 12:43 04/04/24 12:43 Temperature 98.6 F Temperature Source Temporal Pulse Rate 72 Respiratory Rate 16 Respiratory Pattern Normal Blood Pressure 140/94 H Blood Pressure Mean 109 Blood Pressure Source Monitor Blood Pressure Position Semi-Fowlers Blood Pressure Location Right Arm Pulse Ox 100 Oxygen Delivery Method Room Air Weight Weight: 178 lb Body Mass Index (BMI) 26.2 Physical Exam Narrative Patient with a mobile subcutaneous mass of his left posterior shoulder at the base of the neck. He also has a hyperkeratotic neoplasm on the dorsum of his nose. Const alert, oriented x3, no apparent distress, average body habitus and well nourished General Appearance: cooperative and well developed Orientation / Consciousness: oriented to person, oriented to place and oriented to time HEENT head/scalp atraumatic, external ears normal and external nose normal Head and Scalp: normal to inspection, normocephalic, atraumatic and abrasion Face and Sinus: normal facial exam and face symmetric Nose: external nose normal External Ear: external ears normal External Auditory Canal: EAC's normal Mouth: lips normal Eyes PERRL, EOMs intact bilaterally and conjunctivae normal General Eye: normal appearance of both eyes Periorbital: periorbital findings normal Eyelid: eyelids normal Conjunctiva: conjunctiva normal Pupil: PERRL Neck full ROM Lymph Lymphatic: no lymphadenopathy noted Chest inspection of chest normal Breast/Axilla Palpation: no axillary lymphadenopathy Resp normal respiratory effort, normal air movement and clear to auscultation bilaterally Auscultation: clear to auscultation bilaterally Cardio regular rate, regular rhythm, S1 normal heart sound, S2 normal heart sound and no murmurs Rate: regular rate Rhythm: regular rhythm GI soft to palpation and non-tender Extremity normal to inspection and full ROM General Extremity: normal exam except as noted Skin General Skin Exam: turgor normal Neuro oriented x3, CN's II-XII intact bilaterally, moves all extremities, no focal motor deficits and no sensory deficits noted Sensorium / Orientation: awake, alert, oriented to person, oriented to place and oriented to time Speech: speech normal Gait (Neuro): normal gait Psych mental status grossly normal Attention / Concentration: concentration grossly intact Memory / Cognition: memory grossly intact Assessment Plan Assessment/Plan (1) Neoplasm of uncertain behavior of skin of face: (2) Neoplasm of uncertain behavior of connective and other soft tissue: PLAN: Plan For excision subcutaneous mass left shoulder and shave lesion of nose. 04/04/24 1334 Cosigner Signature (if applicable): CC: Dr. Mike Coates MD; Dr. Jessica Willams MD Signed [facility] 05-31-[address] [facility] 04-02-2023 Discharge summary Note Date/Time April 02, 2023 2:31pm [facility] Physical Therapy [facility] [place] [address] / REHABILITATION SERVICES DISCHARGE SUMMARY MR#: [id number] Acct: [id number] Name: DUTCH VAIL Rep #: [id number] : 1955 67 From: Herman Tvoar PT, ATC Referring Dr.: Dr. Mike Coates MD Status: REG RCR Insurance: [employer] SELF PAY INSURANCE Discharge Summary D/C summary: It has been my pleasure to treat DUTCH VAIL referred by Dr. Mike Coates MD, with the diagnosis of R rot cuff strain for a total of 4 visit(s). Discharge Date: Please see the following information for a summary of their discharge status. Subjective Subjective: My shoulder hasn't changed. I have a very hard time sleeping at night. Pain R shoulder: Pain Intensity (Out of 10): 3 Overall Improvement % Improvement: 0 Objective Objective/Function: R shoulder pain ranges from 3-10/10 R shoulder ROM: flex= 60, abd= 35, ER= 25, IR minimally limited R shoulder MMT: flex= 3, abd= 7, ER= 7, IR= 10 #F Pt has made very minimal progress at this time. Goals Goal 1:: Decrease R shoulder pain x 50% to aid with sleep Goal Progress: Not Progressing Goal 2:: Increase R shoulder abduction and flexion ROM x 30 degrees to aid with overhead lifting Goal Progress: Not Progressing Goal 3:: Increase R shoulder strength x 5-10 #F in all planes to aid with IADL's Goal Progress: Progressing Goal 4:: I with HEP Goal Progress: Goal Met Plan Plan: Discharge, recommend return to doctor D/C Information d/c sentence: If there are questions or concerns regarding this patient's physical therapy, please feel free to call me at [phone]. Thank you for the referral of thispatient. Sincerely, Herman Tovar, PT, ATC Balance/Gait/Functional tests Balance/Special Test Scores Quick DASH Score: 31.8175 Improvement % Improvement: 0 <Electronically signed by Herman Tovar PT, ATC> 04/02/23 1431 CC: Dr. Mike Coates MD ~ [facility] Signed [facility] Work Phone: 1(237) 719-510306-05-[address] Madison [facility] September 25, 2022 2:17pm Note Date/Time September 25, 2022 2:11p [facility] Medical Records Department [address] [place] [id number] Discharge Summary 09/25/22 1410 MR#: [id number] Acct: [id number] Name: DUTCH VAIL Rep #:[id number] : 1955 67 From: Robert washington MD PCP: Dr. Mike Coates MD Status:[facility] Location: [place] [address] Providers Date of Admission: 09/24/22 Primary Care Physician: Dr. Mike Coates MD Reason For Visit: DIZZINESS, UNSTEADY GAIT, VERTIGO Diagnosis Discharge Diagnosis (1) Vertigo: Status: Acute Code(s): R42 - Dizziness and giddiness Medications at Discharge Home Medications ibuprofen 200 mg capsule 200 - 600 mg PO QWEEK pain 01/30/18 meclizine 25 mg tablet 25 mg PO BID PRN dizziness #14 tabs 09/25/22 Hospital Course Operations None Procedures 2-D Echocardiogram Summary of Care Provided Minutes Spent on Discharge: 36 Hospital Course: Per HPI: DUTCH VAIL, is a 67 M Came to ED with his who is RN plaints of dizziness, nausea, blurred vision and room spinning.? This started in the morning and felt like blurry vision in the clock.? He also felt his eyes were dancing.? He was also off balance/unsteady gait and diplopia.? Similar episode happened about 5 days ago while he was practicing yoga and stretching on the bar.? He felt like he also passed for few seconds but he came right back.? He isvery healthy and not on any home medication.? He has some chronic neck muscle and lower back muscle soreness. Denies any prior history of stroke, DE/coronary artery disease or peripheral arterial disease. In ED, his vitals are in normal range.? No fever or chills or signs and symptomsof infection. CT head and CTA head and neck was done which did not show any acute abnormality.? Patient is still has nystagmus. Hospital Course: 1. BPPV?67-year-old male presented to the hospital with dizziness and the sensation of the room spinning. He had a similar episode that happened about 5 days ago while doing yoga but this time it was a little bit more severe and lasted longer. Initial CTA of the head and neck was unremarkable and MRI is pending, I did discuss with him the possibility of of staying until the results are back versus going home and he would like to go home. I discussed with him the plan for discharge and he expressed understanding of the risk and benefits of going home and would like to go home today. His symptoms have completely resolved and he no longer has nystagmus and is not dizzy likely indicating that this was not stroke related however the MRI is still pending. I discussed with him that if the MRI results do demonstrate a stroke then I would recommend outpatient follow-up with neurology and I would call him and prescriptions for aspirin and Lipitor. In the meantime we will plan to resume his home ibuprofen as needed as well as meclizine as needed. I recommend that he follow-up with his PCP in 3 to 5 days. Physical Exam Narrative General: Alert, Oriented x3, Cooperative, No apparent distress HEENT: Atraumatic, PERRLA, EOMI, Normocephalic, no nystagmus Oral: Moist Mucosa Neck: Supple, No JVD Lungs: Clear to auscultation, Normal air movement, No rhonchi, No wheeze, No rales Cardiovascular: Regular rate, Regular Rhythm, Normal S1, Normal S2, No murmurs Abdomen: Soft, Non Tender, Non-Distended, No Hepato-splenomegaly Extremities: No edema, Capillary Refill Less than 3 Seconds Skin: No rashes, No breakdown Musculoskeletal: No Tenderness to Palpation of Joints or Extremities Neurological: Cranial nerves II-XII grossly intact, Motor Exam 5/5 strength throughout, Sensory exam intact to light touch and pain Psych/Mental Status: Normal Affect, Appropriate Weight / BMI Weight Weight: 180 lb 8 oz Body Mass Index (BMI) 25.9 ABG / Lab / Microbiology Data Result Diagrams: 09/25/22 06:43 09/25/22 06:43 Laboratory: Laboratory Results - last 24 hr 09/24/22 17:51: POC Glucose 111 H 09/25/22 00:10: POC Glucose 95 09/25/22 06:18: POC Glucose 91 09/25/22 06:43: Sodium 142, Potassium 3.4 L, Chloride 110 H, Carbon Dioxide 27.0, Anion Gap 5, BUN 14, Creatinine 1.04, Estim Creat Clear Calc 73.12, Est GFR (MDRD) Af Amer 92, Est GFR (MDRD) Non-Af 76, BUN/Creatinine Ratio 13.5, Glucose 99, Calcium 8.8, Triglycerides 110, Cholesterol 153, LDL Cholesterol 90,VLDL Cholesterol 22, HDL Cholesterol 41, TSH 1.66 09/25/22 06:43: WBC 4.8, RBC 4.80, Hgb 14.5, Hct 43.2, MCV 90.0, MCH 30.2, MCHC 33.6, RDW Std Deviation 41.4, RDW Coeff of Jeff 12.7, Plt Count 137 L, MPV 10.9, Immature Gran % (Auto) 0.200, Neut % (Auto) 69.8, Lymph % (Auto) 24.4, Morton % (Auto) 4.6, Eos % (Auto) 0.6, Baso % (Auto) 0.4, Absolute Neuts (auto) 3.3, Absolute Lymphs (auto) 1.16, Nucleated RBC % 0 09/25/22 06:43: Hemoglobin A1c 5.2 D/C Instructions Discharge Diet: No restrictions Call your doctor if you observe: Fever of 101 or Higher, Shortness of breath, Dizziness, Fainting spells, Swelling in the ankles, Chest pain and Increased palpitations (irregular heartbeat) Meaningful Use Info Meaningful Use Diagnoses (Choose all that apply): None applicable Discharge Plan Admission Admit Date/Time: 09/24/22 10:11 Attending Provider: Robert Madison Primary Care Provider: Mike Coates Consulting Providers: Jorge Escobedo Discharge Orders/Prescriptions Prescriptions: New meclizine 25 mg tablet 25 mg PO BID PRN (Reason: dizziness) Qty: 14 0RF Continued ibuprofen 200 mg capsule 200 - 600 mg PO QWEEK Referrals / Follow Up: Mike Coates MD [Primary Care Provider] - Within 1 Week Disposition Disposition (needs filled in before D/C Order can be placed): Home, Self Care Charges/Coding Visit Charges Inpatient E&M: 80084 Disch Hosp >30min 09/25/22 1417 <Electronically signed by Robert Madison MD> Cosigner Signature (if applicable): CC: Dr. Mike Coates MD; Dr. Robert Madison MD~ Signed [facility] Work Phone: [phone]) 292-479006-05-[address] Madison [facility] September 25, 2022 12:43pm Note Date/Time September 25, 2022 12:36 pm [facility] Medical Records Department [address] [place] [address] Instructions for Home/Discharge Instructions 09/25/22 1235 MR#: [id number] Acct: [id number] Name: DUTCH VAIL Rep #:[id number] : 1955 67 From: Robert washington MD PCP: Dr. Mike Coates MD Status:[facility] Discharge Instructions Diet Discharge Diet: No restrictions Dressing / Incision Call your doctor if you observe: Fever of 101 or Higher, Shortness of breath, Dizziness, Fainting spells, Swelling in the ankles, Chest pain and Increased palpitations (irregular heartbeat) Follow Up Care Test Results: Test results from this visit will be discussed in further detail at your follow- up appointment, if applicable. Discharge Plan Admission Admit Date/Time: 09/24/22 10:11 Attending Provider: Robert Madison Primary Care Provider: Mike Coates Consulting Providers: Jorge Escobedo Discharge Orders/Prescriptions Prescriptions: New meclizine 25 mg tablet 25 mg PO BID PRN (Reason: dizziness) Qty: 14 0RF Continued ibuprofen 200 mg capsule 200 - 600 mg PO QWEEK Referrals / Follow Up: Mike Coates MD [Primary Care Provider] - Within 1 Week Disposition Disposition (needs filled in before D/C Order can be placed): Home, Self Care 09/25/22 1243<Electronically signed by Robert Madison MD>Robert Madison MD CC: Dr. Mike Coates MD; Dr. Jorge Escobedo MD ~ Signed [facility] Work Phone: 1(880) 255-983206-04-2023 History and physical note Author Dr. Escobedo [facility] September 24, 2022 11:21am Note Date/Time September 24, 2022 11:21 am [facility] Medical Records Department [address] [place] [address] H&P Exam - Hospitalist 09/24/22 1105 MR#: [id number] Acct: [id number] Name: DUTCH VAIL Rep #:[id number] : 1955 67 From: Jorge Ch PCP: Dr. Mike Coates MD Status:[facility] Location: [place] [id number] HPI - General General Date of Admission: 09/24/22 Date of Service: 09/24/22 Chief Complaint: Dizziness vertigo, unsteady gait today. HPI Narrative DUTCH VAIL, is a 67 M Came to ED with his who is RN plaints of dizziness, nausea, blurred vision and room spinning. This started in the morning and felt like blurry vision in the clock. He also felt his eyes were dancing. He was also off balance/unsteady gait and diplopia. Similar episode happened about 5 days ago while he was practicing yoga and stretching on the bar. He felt like he also passed for few seconds but he came right back. He isvery healthy and not on any home medication. He has some chronic neck muscle and lower back muscle soreness. Denies any prior history of stroke, DE/coronary artery disease or peripheral arterial disease. In ED, his vitals are in normal range. No fever or chills or signs and symptomsof infection. CT head and CTA head and neck was done which did not show any acute abnormality. Patient is still has nystagmus. [facility] Medical History Abdominal pain Rectal bleeding Home Medications ibuprofen 200 mg capsule 200 - 600 mg PO QWEEK pain 01/30/18 [History Last Taken Unknown] Allergy/AdvReac Type Severity Reaction Status Date / Time No Known Allergies Allergy Unverified 01/31/18 10:02 Family History Father Hypertension Mother Breast cancer Hypertension Brother CAD (coronary artery disease) Hypertension Surgical History Partial traumatic metacarpophalangeal amputation of finger S/P rotator cuff repair Social History Smoking Status: Never smoker alcohol intake: current alcohol intake frequency: a few times a month ROS ROS Narrative Constitutional: No fever. Denies chronic fatigue or illness. HEENT: Describe detailed in HPI. Reports systems reviewed and no addt'l complaints, except as documented Respiratory/Chest: No acute shortness of breath or respiratory distress or wheezing. CVS: No chest pain pressure or tightness. Gastrointestinal: Denies coffee ground emesis, hematemesis or vomiting Genitourinary: Denies burning urination or new urinary tract symptoms Musculoskeletal: Denies acute joint pain or limited range of motion. No acute injury Neurologic: Denies seizure-like symptoms. No previous stroke. skin: No ulcer. No rash Endocrinology: Reports systems reviewed and no addt'l complaints, except as documented Hematologic/Lymphatic: Reports systems reviewed and no addt'l complaints, exceptas documented Rest 14 ROS are negative except as mentioned in HPI Vital Signs Vital Signs Vital Signs: 09/24/22 07:02 09/24/22 07:27 Temperature 95.3 F L Temperature Source Temporal Pulse Rate 63 Respiratory Rate 18 Respiratory Effort Normal Non-Labored Respiratory Pattern Normal Blood Pressure 144/77 H Blood Pressure Mean 99 Pulse Ox 100 Oxygen Delivery Method Room Air Physical Exam Narrative Physical exam: General: Alert, Oriented x3, Cooperative HEENT: Atraumatic, PERRLA, EOMI, Normocephalic. Diplopia on extreme right gaze. Nystagmus, fast component left side. Oral: Oral mucosa moist no Gingival or Mucosal Lesions/ Ulcerations Neck: Supple, No JVD, Negative Carotid Bruits Lungs: Air entry equal in bilateral lung bases. No crepitation/rhonchi Cardiovascular: Regular rate, Regular Rhythm, Normal S1, Normal S2, No murmurs Abdomen: Bowel Sounds Present, Soft, Non Tender, Non-Distended : No renal angle tenderness. No suprapubic tenderness. Extremities: No edema, Capillary Refill Less than 3 Seconds Skin: No rashes, No breakdown Musculoskeletal: No Tenderness to Palpation of Joints or Extremities. Muscle strength 5/5 at major joints. Neurological: Cranial nerves II-XII grossly intact, DTR 2+/4 and Symmetrical, no facial droop. NIHSS 0. Psych/Mental Status: Normal Affect, Appropriate. Results Lab / Micro Data Result Diagrams: 09/24/22 07:30 09/24/22 07:30 Labs: Laboratory Results - last 24 hr 09/24/22 07:30: WBC 3.8 L, RBC 4.82, Hgb 14.5, Hct 43.3, MCV 89.8, MCH 30.1, MCHC 33.5, RDW Std Deviation 41.1, RDW Coeff of Jeff 12.6, Plt Count 138 L, MPV 10.7, Immature Gran % (Auto) 0.000, Neut % (Auto) 58.3, Lymph % (Auto) 33.2, Morton % (Auto) 5.6, Eos % (Auto) 2.4, Baso % (Auto) 0.5, Absolute Neuts (auto) 2.2, Absolute Lymphs (auto) 1.25, Nucleated RBC % 0 09/24/22 07:30: Sodium 142, Potassium 3.8, Chloride 110 H, Carbon Dioxide 28.0, Anion Gap 4 L, BUN 20 H, Creatinine 1.12, Est GFR (MDRD) Af Amer 85, Est GFR (MDRD) Non-Af 70, BUN/Creatinine Ratio 17.9, Glucose 129 H, Calcium 8.4 L, TotalBilirubin 0.50, AST 21, ALT 18, Alkaline Phosphatase 51, Troponin I High Sens 5,Total Protein 6.4, Albumin 3.6, Globulin 2.8, Albumin/Globulin Ratio 1.3 Radiology Impression Head/Neck CTA 09/24/22 07:27 IMPRESSION: Within normal limits CT Brain, CTA Carotid, and CTA Brain. Electronically Signed: Audelia Burns MD at 8:58 EDT , Assessment & Plan Assessment/Plan (1) Vertigo: PLAN: Plan This is 67-year-old gentleman healthy lifestyle came to ED for acute onset of dizziness, nausea and lightheadedness, nystagmus, unsteady gait, diplopia and vertigo 1. Vertigo, unsteady gait seems peripheral vertigo, rule out cerebellar lesion/stroke: Patient is being admitted in PCU. NIH stroke scale 0. EKG showssinus bradycardia 55 bpm, MN 150 ms, QTc [address] brain, CTA head and neck within normal limit. MRI head and 2D echo tomorrow AM. PT, OT, speech therapy/swallow evaluation and management, nursing NIH stroke scale, BP and glucose monitoring and control as per stroke protocol. TSH, A1c AND fasting lipid profile tomorrow AM. MRI brain and 2D echo with bubble contrast study ordered. IV fluid normal saline 75 mill per hour for 1 L. ABG aspirin and high intensity statin ordered. Serum magnesium ordered. 2. Mild hyperglycemia, glucose 129: A1c tomorrow AM. Patient does not have a history of diabetes mellitus. 3. Chronic neck muscle and lumbar muscle/paraspinal soreness, possible onset ofdegenerative arthritis: Denies any acute onset. PT and OT. VTE prophylaxis moderate risk: Heparin subcu ordered. Living will/advanced directive/end of life care: Patient does not have living will or advanced directive. After discussion of benefits/risks procedures involved with full code, DNR CC arrest and DNR CC, the patient and his , RNopted for full code. Patient does want artificial life support including intubation, tube feed, ventilator and/chest compression, central venous catheter, vasopressor and DC shock if needed Total time spent in [id number] encounter in discussion of advanced directive 17 minutes. Laboratory Results 09/24/22 07:30: WBC 3.8 L, RBC 4.82, Hgb 14.5, Hct 43.3, MCV 89.8, MCH 30.1, MCHC 33.5, RDW Std Deviation 41.1, RDW Coeff of Jeff 12.6, Plt Count 138 L, MPV 10.7, Immature Gran % (Auto) 0.000, Neut % (Auto) 58.3, Lymph % (Auto) 33.2, Morton % (Auto) 5.6, Eos % (Auto) 2.4, Baso % (Auto) 0.5, Absolute Neuts (auto) 2.2, Absolute Lymphs (auto) 1.25, Nucleated RBC % 0 09/24/22 07:30: Sodium 142, Potassium 3.8, Chloride 110 H, Carbon Dioxide 28.0, Anion Gap 4 L, BUN 20 H, Creatinine 1.12, Est GFR (MDRD) Af Amer 85, Est GFR (MDRD) Non-Af 70, BUN/Creatinine Ratio 17.9, Glucose 129 H, Calcium 8.4 L, TotalBilirubin 0.50, AST 21, ALT 18, Alkaline Phosphatase 51, Troponin I High Sens 5,Total Protein 6.4, Albumin 3.6, Globulin 2.8, Albumin/Globulin Ratio 1.3 09/24/22 07:30: Magnesium Pending Clinical Impression(s) from Imaging Studies Head/Neck CTA 09/24/22 07:27 IMPRESSION: Within normal limits CT Brain, CTA Carotid, and CTA Brain. Electronically Signed: Audelia Burns MD at 8:58 EDT , Charges/Coding Visit Charges Inpatient E&M: 33254 Init Hosp L3 Procedures Hospitalists Procedures: 03160 Advncd Care Plan 30 Min 09/24/22 1121 <Electronically signed by Jorge Escobedo MD> Cosigner Signature (if applicable): CC: Dr. Mike Coates MD; Dr. Jorge Escobedo MD~ Signed [facility] Work Phone: [phone]) 698-501406-04-[address] Man [facility] September 24, 2022 10:17am Note Date/Time September 24, 2022 7:25a m [facility] Medical Records Department [address] [place] [address] Emergency Department Summary 09/24/22 MR#: [id number] Acct: [id number] Name: DUTCH VAIL Rep #:[id number] : 1955 67 From: Surendra Man MD PCP: Dr. Mike Coates MD Status:REG ER Location: ED HPI History of Present Illness Chief Complaint: Dizziness Narrative Narrative: 67-year-old male who denies significant past medical history presents with his because of dizziness since this morning. He states that over the last 5 days, he has had intermittent episodes of the room spinning and dizziness. States he had blurred vision out of both eyes with this. He has been practicingyoga and 5 days ago may have been doing certain positions. 3 days ago, he states he was watching TV, and he had blurred vision and dizziness. Yesterday, when he went to bed, he stated everything was fine. When he awoke this morning,he had blurry vision out of the clock. He felt unsteady in his gait and felt like the room was spinning. He became nauseated with this but denies any chest pain or shortness of breath. His gave him an aspirin, but he states that he may have vomited or dry heaves afterwards. He denies any paresthesias, no other symptoms but he felt like he was having nystagmus with his vision. [facility] Medical History (Updated 09/24/22 @ 09:59 by Surendra Man MD) Abdominal pain Rectal bleeding Home Medications ibuprofen 200 mg capsule 200 - 600 mg PO QWEEK pain 01/30/18 [History Last Taken Unknown] Allergy/AdvReac Type Severity Reaction Status Date / Time No Known Allergies Allergy Unverified 01/31/18 10:02 Family History Father Hypertension Mother Breast cancer Hypertension Brother CAD (coronary artery disease) Hypertension Surgical History Partial traumatic metacarpophalangeal amputation of finger S/P rotator cuff repair Social History Smoking Status: Never smoker alcohol intake: current alcohol intake frequency: a few times a month ROS ROS ED ROS Narrative Constitutional: No fever, no chills. HEENT: No sore throat. No neck pain. No loss of vision. No rhinorrhea. Cardiovascular: No chest pain. No palpitations. No pedal edema. Respiratory: No cough, no shortness of breath. Abdominal: No abdominal pain. Positive nausea. Positive dry heaving/vomiting. Genitourinary: No dysuria. No hematuria. Musculoskeletal: No myalgias. No arthralgias. Neurologic: No headaches. Positive dizziness. No lightheadedness. Off balanceand unsteady gait. No paresthesias. Skin: No rash. No change in color. Psychiatric: No depression. No anxiety. EXAM Physical Exam Narrative Exam Narrative: Afebrile. Vital signs noted. HEENT: Normocephalic. Atraumatic. PERRL, EOMI. Neck soft and supple. No pointtenderness or step off. Cardiovascular: Regular rate and rhythm. No murmurs, rubs, or gallops appreciated. Respiratory: No tachypnea. Lungs clear to auscultation bilaterally. Gastrointestinal: Abdomen soft, nontender, with normoactive bowel sounds. No rebound or guarding. Neurological: Awake. Alert. Nonfocal, nonlateralizing. Normal [id number]. Fatigable nystagmus, dizziness when looking towards the right. Skin: No rash. Normal color. No pallor. Musculoskeletal: No pedal edema. Full range of motion extremities. Const Vital Signs: 09/24/22 07:02 09/24/22 07:27 Temperature 95.3 F L Temperature Source Temporal Pulse Rate 63 Respiratory Rate 18 Respiratory Effort Normal Non-Labored Respiratory Pattern Normal Blood Pressure 144/77 H Blood Pressure Mean 99 Pulse Ox 100 Oxygen Delivery Method Room Air MDM MDM MDM Narrative Medical decision making narrative: I reviewed the patient's prior records. He has no contributory factors to his chief complaint today. Concern would be for cerebellar stroke. Given that his symptoms actually began 5 days ago, I do not feel that stroke team is indicated. Additionally, he has an NIH stroke scale of 0. Concern would be for cerebellarstroke or vertebral artery dissection. CT imaging including CTA of the head andneck will be obtained additionally with baseline laboratories. Also in the differential diagnosis would be acute coronary syndrome. I will obtain an EKG and single troponin as it has been greater than 6 hours since his symptoms had started but have become more constant overnight. I reviewed the patient's laboratory work, he has a chronic neutropenia of 3.8, states its been like that for the majority of his life. He has a normal hemoglobin of 14.5, hematocrit 43.3, platelet count slightly low at 138 which I think is nonspecific. Chloride is elevated at 110 with glucose appropriately elevated at 129 with a low anion gap of 4. LFTs are grossly unremarkable. CT of the brain and CTA of the head and neck radiology report was reviewed which shows it to be within normal limits and no significant stenosis or clot. After meclizine and Zofran, patient is unable to ambulate and started throwing up whenhe got up to go to the bathroom. At this point in time, given his inability to ambulate, patient was discussed with Dr. Escobedo for observation in the PCU. There is less concern for posterior circulation stroke, but given his inability to ambulate and continued vertigo, he will be assigned to observation on the PCU. Patient is in stable condition. History & Record Review Discussion w/independent historian: Patient and Family Additional record(s) reviewed:: Prior ED visit Lab Data Attestation: I reviewed the patient's lab results. Labs: Laboratory Results - last 24 hr 09/24/22 09/24/22 07:30 07:30 WBC 3.8 L RBC 4.82 Hgb 14.5 Hct 43.3 MCV 89.8 MCH 30.1 MCHC 33.5 RDW Std Deviation 41.1 RDW Coeff of Jeff 12.6 Plt Count 138 L MPV 10.7 Immature Gran % (Auto) 0.000 Neut % (Auto) 58.3 Lymph % (Auto) 33.2 Morton % (Auto) 5.6 Eos % (Auto) 2.4 Baso % (Auto) 0.5 Absolute Neuts (auto) 2.2 Absolute Lymphs (auto) 1.25 Nucleated RBC % 0 Sodium 142 Potassium 3.8 Chloride 110 H Carbon Dioxide 28.0 Anion Gap 4 L BUN 20 H Creatinine 1.12 Est GFR (MDRD) Af Amer 85 Est GFR (MDRD) Non-Af 70 BUN/Creatinine Ratio 17.9 Glucose 129 H Calcium 8.4 L Total Bilirubin 0.50 AST 21 ALT 18 Alkaline Phosphatase 51 Troponin I High Sens 5 Total Protein 6.4 Albumin 3.6 Globulin 2.8 Albumin/Globulin Ratio 1.3 Radiography Diagnostic Testing: Clinical Impression(s) from Imaging Studies Head/Neck CTA 09/24/22 07:27 IMPRESSION: Within normal limits CT Brain, CTA Carotid, and CTA Brain. Electronically Signed: Audelia Burns MD at 8:58 EDT Reading Location ID and State: [facility] / [place] Tel , Service support , Discharge Plan Dx/Rx/DC Orders Clinical Impression: Vertigo, Nausea & vomiting, Inability to walk Disposition Disposition: Acute Care Hospital [facility] What to do if you have Problems For any increased pain, shortness of breath, bleeding, nausea or vomiting, chestpain, or any unexpected problems, contact your Primary Care Provider. Call [facility] ([phone]) or report to the closest Emergency Room. Call 911 if necessary. 09/24/22 1017 <Electronically signed by Surendra Man MD> Cosigner Signature (if applicable): CC: Dr. Mike Coates MD ~ Signed [facility] Work Phone: [phone]) 821-261106-04-[address] Man [facility] September 24, 2022 10:17am Note Date/Time September 24, 2022 7:25a m [facility] Medical Records Department [address] [place] [address] Emergency Department Summary 09/24/22 MR#: [id number] Acct: [id number] Name: DUTCH VAIL Rep #:[id number] : 1955 67 From: Surendra Man MD PCP: Dr. Mike Coates MD Status:REG ER Location: ED HPI History of Present Illness Chief Complaint: Dizziness Narrative Narrative: 67-year-old male who denies significant past medical history presents with his because of dizziness since this morning. He states that over the last 5 days, he has had intermittent episodes of the room spinning and dizziness. States he had blurred vision out of both eyes with this. He has been practicingyoga and 5 days ago may have been doing certain positions. 3 days ago, he states he was watching TV, and he had blurred vision and dizziness. Yesterday, when he went to bed, he stated everything was fine. When he awoke this morning,he had blurry vision out of the clock. He felt unsteady in his gait and felt like the room was spinning. He became nauseated with this but denies any chest pain or shortness of breath. His gave him an aspirin, but he states that he may have vomited or dry heaves afterwards. He denies any paresthesias, no other symptoms but he felt like he was having nystagmus with his vision. [facility] Medical History (Updated 09/24/22 @ 09:59 by Surendra Man MD) Abdominal pain Rectal bleeding Home Medications ibuprofen 200 mg capsule 200 - 600 mg PO QWEEK pain 01/30/18 [History Last Taken Unknown] Allergy/AdvReac Type Severity Reaction Status Date / Time No Known Allergies Allergy Unverified 01/31/18 10:02 Family History Father Hypertension Mother Breast cancer Hypertension Brother CAD (coronary artery disease) Hypertension Surgical History Partial traumatic metacarpophalangeal amputation of finger S/P rotator cuff repair Social History Smoking Status: Never smoker alcohol intake: current alcohol intake frequency: a few times a month ROS ROS ED ROS Narrative Constitutional: No fever, no chills. HEENT: No sore throat. No neck pain. No loss of vision. No rhinorrhea. Cardiovascular: No chest pain. No palpitations. No pedal edema. Respiratory: No cough, no shortness of breath. Abdominal: No abdominal pain. Positive nausea. Positive dry heaving/vomiting. Genitourinary: No dysuria. No hematuria. Musculoskeletal: No myalgias. No arthralgias. Neurologic: No headaches. Positive dizziness. No lightheadedness. Off balanceand unsteady gait. No paresthesias. Skin: No rash. No change in color. Psychiatric: No depression. No anxiety. EXAM Physical Exam Narrative Exam Narrative: Afebrile. Vital signs noted. HEENT: Normocephalic. Atraumatic. PERRL, EOMI. Neck soft and supple. No pointtenderness or step off. Cardiovascular: Regular rate and rhythm. No murmurs, rubs, or gallops appreciated. Respiratory: No tachypnea. Lungs clear to auscultation bilaterally. Gastrointestinal: Abdomen soft, nontender, with normoactive bowel sounds. No rebound or guarding. Neurological: Awake. Alert. Nonfocal, nonlateralizing. Normal [id number]. Fatigable nystagmus, dizziness when looking towards the right. Skin: No rash. Normal color. No pallor. Musculoskeletal: No pedal edema. Full range of motion extremities. Const Vital Signs: 09/24/22 07:02 09/24/22 07:27 Temperature 95.3 F L Temperature Source Temporal Pulse Rate 63 Respiratory Rate 18 Respiratory Effort Normal Non-Labored Respiratory Pattern Normal Blood Pressure 144/77 H Blood Pressure Mean 99 Pulse Ox 100 Oxygen Delivery Method Room Air MDM MDM MDM Narrative Medical decision making narrative: I reviewed the patient's prior records. He has no contributory factors to his chief complaint today. Concern would be for cerebellar stroke. Given that his symptoms actually began 5 days ago, I do not feel that stroke team is indicated. Additionally, he has an NIH stroke scale of 0. Concern would be for cerebellarstroke or vertebral artery dissection. CT imaging including CTA of the head andneck will be obtained additionally with baseline laboratories. Also in the differential diagnosis would be acute coronary syndrome. I will obtain an EKG and single troponin as it has been greater than 6 hours since his symptoms had started but have become more constant overnight. I reviewed the patient's laboratory work, he has a chronic neutropenia of 3.8, states its been like that for the majority of his life. He has a normal hemoglobin of 14.5, hematocrit 43.3, platelet count slightly low at 138 which I think is nonspecific. Chloride is elevated at 110 with glucose appropriately elevated at 129 with a low anion gap of 4. LFTs are grossly unremarkable. CT of the brain and CTA of the head and neck radiology report was reviewed which shows it to be within normal limits and no significant stenosis or clot. After meclizine and Zofran, patient is unable to ambulate and started throwing up whenhe got up to go to the bathroom. At this point in time, given his inability to ambulate, patient was discussed with Dr. Escobedo for observation in the PCU. There is less concern for posterior circulation stroke, but given his inability to ambulate and continued vertigo, he will be assigned to observation on the PCU. Patient is in stable condition. History & Record Review Discussion w/independent historian: Patient and Family Additional record(s) reviewed:: Prior ED visit Lab Data Attestation: I reviewed the patient's lab results. Labs: Laboratory Results - last 24 hr 09/24/22 09/24/22 07:30 07:30 WBC 3.8 L RBC 4.82 Hgb 14.5 Hct 43.3 MCV 89.8 MCH 30.1 MCHC 33.5 RDW Std Deviation 41.1 RDW Coeff of Jeff 12.6 Plt Count 138 L MPV 10.7 Immature Gran % (Auto) 0.000 Neut % (Auto) 58.3 Lymph % (Auto) 33.2 Morton % (Auto) 5.6 Eos % (Auto) 2.4 Baso % (Auto) 0.5 Absolute Neuts (auto) 2.2 Absolute Lymphs (auto) 1.25 Nucleated RBC % 0 Sodium 142 Potassium 3.8 Chloride 110 H Carbon Dioxide 28.0 Anion Gap 4 L BUN 20 H Creatinine 1.12 Est GFR (MDRD) Af Amer 85 Est GFR (MDRD) Non-Af 70 BUN/Creatinine Ratio 17.9 Glucose 129 H Calcium 8.4 L Total Bilirubin 0.50 AST 21 ALT 18 Alkaline Phosphatase 51 Troponin I High Sens 5 Total Protein 6.4 Albumin 3.6 Globulin 2.8 Albumin/Globulin Ratio 1.3 Radiography Diagnostic Testing: Clinical Impression(s) from Imaging Studies Head/Neck CTA 09/24/22 07:27 IMPRESSION: Within normal limits CT Brain, CTA Carotid, and CTA Brain. Electronically Signed: Audelia Burns MD at 8:58 EDT , Discharge Plan Dx/Rx/DC Orders Clinical Impression: Vertigo, Nausea & vomiting, Inability to walk Disposition Disposition: Acute Care Hospital [facility] What to do if you have Problems For any increased pain, shortness of breath, bleeding, nausea or vomiting, chestpain, or any unexpected problems, contact your Primary Care Provider. Call [facility] ([phone]) or report to the closest Emergency Room. Call 911 if necessary. 09/24/22 1017 <Electronically signed by Surendra Man MD> Cosigner Signature (if applicable): CC: Dr. Mike Coates MD ~ Signed [facility] Work Phone: Evaluation noteNo assessment information available [facility] Work Phone: Evaluation note* Diagnosis Onset Date Resolution Status Inability to walk acute Nausea & vomiting acute Vertigo acute [facility] Work Phone: Hospital Discharge instructions Additional Instructions [facility] Family History No Family History Records Found Relationship Condition Age at Onset Recorded Date/T nelida father Hypertension Unknown mother Malignant neoplasm of breast Unknown Hypertension Unknown brother Coronary artery disease Unknown Advance Directives No Advanced Directives Records Found Advance Directive Response Recorded Date/ Time Living Will No January 31 18 10:04am Power of River Tester No January 31, 2018 10:04am Advance Directive Response Recorded Date/ Time Living Will No September 24, 2022 7 :26am Power of River Tester No September 24, 2022 7:26am Advance Directive Response Recorded Date/ Time Living Will No September 24, 2022 1 1:13am Power of River Tester No September 24, 2022 11:13am Advance Directive Response Recorded Date/ Time Living Will No September 24, 2022 1 0:13am Power of River Tester No September 24, 2022 10:13am Advance Directive Response Recorded Date/ Time Living Will No May 17 12:55pm Power of River Tester No May 17, 2023 12:55pm Chief Complaint and Reason for Visit Chief Complaint EORDER Chief Complaint DIZZINESS, UNSTEADY GAIT, VERTIGO Reason for Visit Inability to walk Nausea & vomiting Vertigo Chief Complaint DIZZINESS, UNSTEADY GAIT, VERTIGO DIZZINESS, UNSTEADY GAIT, VERTIGO DIZZINESS, UNSTEADY GAIT, VERTIGO Reason for Visit Inability to walk Nausea & vomiting Vertigo Chief Complaint RT SHOULDER PAIN FEL L ONTO ELBOW / RX HERE PAIN IN RIGHT SHOULDER Chief Complaint RT SHOULDER PAIN FEL L ONTO ELBOW / RX HERE PAIN IN RIGHT SHOULDER RT SHOULDER PAIN Chief Complaint RT SHOULDER PAIN FEL L ONTO ELBOW / RX HERE PAIN IN RIGHT SHOULDER RT SHOULDER PAIN RIGHT SHOULDER ARTHROSCOPY WITH ROT Chief Complaint RT SHOULDER PAIN FEL L ONTO ELBOW / RX HERE Additional Source Comments (unrecognized sect ion and content) No Status Records FoundNo Status Records Found INFORMATION SOURCE (unrecogn ized section and content) DATE CREATED AUTHOR 09/30/2018 [facility] DATE CREATED AUTHOR AUTHOR'S ORGANIZ ATION 10/06/2024 [facility] Goals (unrecognized section and content) Goals may be documented in a n alternate sectionGoals may be documented in an alternate sectionGoals may be documented in an alternate sectionGoals may be documented in an alternate sectionGoals may be documented in an alternate sectionGoals may be documented in an alternate sectionGoals may be documented in an alternate sectionGoals may be documented in an alternate section Care Teams (unrecognized sec tion and content) Team Status: Active Member Role Status Dates Dr. Donaldo Butler MD Family Provider Active Dr. Mike Coates MD Primary Care Provider Active Team Status: Active Member Role Status Dates Dr. Mike Coates MD Primary Care Provider Active Surendra Man MD Emergency Provider Active Dr. Jorge Escobedo MD Admit Provider, Attending Provi shay Active Team Status: Active Member Role Status Dates Dr. Mike Coates MD Primary Care Provider Active Surendra Man MD Emergency Provider Active Dr. Jorge Escobedo MD Admit Provider, A ttending Provider, Other Provider Active Team Status: Active Member Role Status Dates Dr. Mike Coates MD Primary Care Provider Active Surendra Man MD Emergency Provider Active Dr. Jorge Escobedo MD Admit Provider, Other Provider Active Dr. Robert Madison MD Attending Provider, Other Provider Active Team Status: Active Member Role Status Dates Dr. Mike Coates MD Primary Care Provider Active Dr. Jose Cortes MD Attending Provider Active Team Status: Inactive Member Role Status Dates Dr. Mike Coates MD Primary Care Provider Active Surendra Man MD Emergency Provider Active Dr. Jorge Escobedo MD Admit Provider, Other Provider Active Dr. Robert Madison MD Attending Provider Active Team Status: Inactive Member Role Status Dates Dr. Mike Coates MD Primary Care Provider, Attending P kendra Active Team Status: Inactive Member Role Status Dates Dr. Mike Coates MD Primary Care Provider Active Dr. Robert Ace DO Attending Provider, Referrin g Provider Active Team Status: Inactive Member Role Status Dates Dr. Mike Coates MD Primary Care Provider Active MONALISA Coronel Attending Provider, Referring Provide r Active FOR RECORDS PERTAINING TO PATIENTS WHO ARE [...] BE BASED ON THE PRIMARY CLINICAL RECORDS. [employer] provides no warranty or guarantee of the accuracy or completeness of information in this document.
[2024-10-06] MEDS: Lactated Ringers 1,000 ML 15 ML IV (07:56)
--- NOTE | 2024-10-06 08:27 | PCM.PRE.AN2 ---
ASA Classification* ASA Classification ASA Classification: 2 Assessment & Plan Anesthesia* Anesthesia Assessment Anesthesia Assessment: Discussed sedation and/or anesthesia options, risks, benefits, and alternatives with patient/parents/legal guardian/POA. Questions invited. The patient/parents/legal guardian/POA seems to understand and agrees to proceed with anesthesia plan. Reviewed the physical assessment, medical history, allergy history and patient home medications list prior to surgery/procedure/anesthetic and documented any changes. Performed airway and anesthesia risk assessments. Anesthesia Type Anesthesia Type: General and Block (Patient consented for interscalene block.) History Source History Obtained from:: Patient and Chart Anesthesia Focused Assessment* Temperature: 97.3 F Pulse Rate: 58 Blood Pressure: 136/98 Respiratory Rate: 16 Pulse Ox: 97 Oxygen Delivery Method: Room Air Airway Assessment Mouth opens: >3 cm Mallampati Score: I Teeth Condition: Chipped/Broken (Patient has 1 chipped tooth right lower molar.) Neck Range of motion (ROM): Full ROM Labs Anesthesia Preop lab: CBC WBC 4.1 K/mm3 (4.4-11.0) L 09/30/24 14:11 09/30/24 RBC 4.58 M/mm3 (4.6-6.2) L 09/30/24 14:11 09/30/24 Hgb 13.8 g/dL (13.0-16.5) 09/30/24 14:11 09/30/24 Hct 40.2 % (40-54) 09/30/24 14:11 09/30/24 Plt Count 147 K/mm3 (150-450) L 09/30/24 14:11 09/30/24 CHEMISTRY Potassium 4.2 mmol/L (3.3-5.1) 09/30/24 14:09/30/24 Sodium 142 mmol/L (133-145) 09/30/24 14:11 09/30/24 Magnesium 2.1 mg/dL (1.5-2.2) 09/30/24 14:09/30/24 Phosphorus 3.1 mg/dL (2.5-4.9) 09/24/22 07:30 09/24/22 BUN 15 mg/dL (4-19) 09/30/24 14:11 09/30/24 Creatinine 1.11 mg/dL (0.70-1.20) 09/30/24 14:11 09/30/24 Glucose 92 mg/dL (70-99) 09/30/24 14:11 09/30/24 POC Glucose 91 mg/dL (74-106) 09/25/22 06:18 09/25/22 TSH 1.66 uIU/mL (0.358-3.74) 09/25/22 06:43 09/25/22 COAG PT 14.1 SECONDS (11.7-14.9) 09/30/24 14:11 09/30/24 Pre-Assessment Diagnosis/Proposed Procedure Planned Operative Procedure(s): (L) LEFT SHOULDER ARTHROSCOPIC ROTATOR CUFF REPAIR, MINI OPEN SUBPECTORAL BICEPS TENODESIS Anesthesia History Anesthesia History - chemical applicator: Anesthesia History - chemical applicator Hx Hospitalization No 09/25/24 12:03 Any Problems With Anesthesia No 09/25/24 12:03 Cholinesterase deficiency No 09/25/24 12:03 You/Your Family Experience No 09/25/24 12:03 fever (hyperthermia) with Relationship Recent Exposure to Contagious No 10/06/24 07:45 Disease Does patient have nerve No 09/25/24 12:03 stimulator Patient instructed to have device shut off --Does patient have Pacemaker No 10/06/24 07:45 or ICD? When Was Last Pacemaker Check QUESTION #4 FULL TEXT: You/Your Family Experience fever (hyperthermia) with Anesthesia Last Oral Intake Last Oral intake: Last Oral Intake NPO since 22:00 10/06/24 07:45 Meds taken in AM with sips of No 10/06/24 07:45 water? Meds patient instructed to take am of surgery PONV PONV - chemical applicator: PONV - chemical applicator Female No 09/25/24 12:03 HX of Motion Sickness No 09/25/24 12:03 HX of N/V After Surgery No 09/25/24 12:03 Non-Smoker Yes 09/25/24 12:03 Duration of Surgery greater Yes 09/25/24 12:03 than 60 minutes Number of Risk Factors 2 09/25/24 12:03 PONV Score Moderate Risk 09/25/24 12:03 Height & Weight Height & Weight: Anesthesia: Height & Weight Height 5 ft 10 in 10/06/24 07:45 Weight: 82 kg 10/06/24 07:45 Body Mass Index (BMI) 25.9 10/06/24 07:45 Respiratory Assessment Respiratory Assessment - chemical applicator: Respiratory Tract Infection Hx - chemical applicator Hx Respiratory Tract Infection No 09/25/24 12:03 STOP Sleep Apnea STOP Sleep Apnea - chemical applicator: STOP Sleep Apnea - chemical applicator Hx Hypertension No 09/25/24 12:03 Hx Sleep Apnea No 09/25/24 12:03 CPAP No 09/25/24 12:03 BIPAP Do you snore loudly (louder No 09/25/24 12:03 than talking or can be heard Do you often feel tired/ No 09/25/24 12:03 fatigued/ sleepy during daytime? Has anyone observed you stop Yes 09/25/24 12:03 breathing during sleep? STOP Results Negative 09/25/24 12:03 QUESTION #5 FULL TEXT : Do you snore loudly (louder than talking or can be heard through closed doors)? Tobacco Use History Tobacco Use History - chemical applicator: Tobacco Use History - chemical applicator Tobacco Use Smoking Status Never smoker 09/25/24 12:03 Hx Tobacco Use No 09/25/24 12:03 Years Smoking Packs Smoked per Day Smoking Cessation Date was within the last 15 years Hx Smoking Cessation Date Hx Smoking Cessation No 09/25/24 12:03 Counseling Hematologic Medial History Hematologic Hx - chemical applicator: Hematologic Medical Hx - electronic organ technician Hx of Blood Transfusion No 09/25/24 12:03 Hx of Transfusion in last 3 No 09/25/24 12:03 Months Date of Last Transfusion (if within last 3 months) Ever experience any problems No 09/25/24 12:03 with transfusion(s)? Specify any problems Hx of Preganancy in last 3 N/A 09/25/24 12:03 Months Nurse Filling Out Transfusion [email or web address] 09/25/24 12:03 & Questions: Date: 09/25/24 09/25/24 12:03 Time: 12:06 09/25/24 12:03 Patient unable to answer at this time (ie. confused, unrespo /Reproduction History /Reproductive History - chemical applicator: /Reproductive Hx- chemical applicator Hx Now Gestational Age (in weeks): EDC: Hx Hx Para Hx Section SAB Active Medications Active Medications: Current Medications Generic Name Dose Route Start Last Admin Trade Name Freq PRN Reason Stop Dose Admin Lactated Ringer's 1,000 mls @ 15 mls/hr 10/06/24 07:45 10/06/24 07:56 IV 15 mls/hr .Q48H VIMAL Administration PFSH Medical History (Updated 09/25/24 @ 12:13 by Chad Miller) Easy bruising History of vertigo Heartburn Back problem Non-smoker History of echocardiogram Hemorrhoids Home Medications ?Medication ?Instructions ?Recorded ?Last Taken ?Type acetaminophen 500 mg capsule 1,000 mg PO Q6H PRN SHOULDER PAIN 05/17/23 05/27/23 History aspirin 81 mg tablet,delayed 81 mg PO BID 05/07/24 Unknown History release oxycodone 5 mg tablet 5 mg PO 4X/DAY PRN postOp Pain 05/07/24 Unknown History Allergy/AdvReac Type Severity Reaction Status Date / Time meloxicam AdvReac Intermediate Other Verified 10/06/24 07:44 Family History Father Hypertension Mother Breast cancer Hypertension Brother CAD (coronary artery disease) Hypertension Surgical History (Updated 09/25/24 @ 12:45 by Chad Miller) History of colonoscopy History of rotator cuff surgery Partial traumatic metacarpophalangeal amputation of finger S/P rotator cuff repair Social History Smoking Status: Never smoker alcohol intake: never substance use type: does not use additional social history: no asa, ibuprofen prn Review of Systems (Anesthesia) ROS Narrative System reviewed and no additional complaints, except as documented.
[2024-10-06] MEDS: Cefazolin 2 GM in 0.9% Normal Saline (100mL Bag) 100 ML IV (09:40)
[2024-10-06] MEDS: Bupiv/Epi 0.25% 30 ML Vial (10:16)
[2024-10-06] MEDS: Epinephrine (1 mg/ml) 1 MG/ML VIAL (10:16)
--- NOTE | 2024-10-06 11:09 | PCM.OPRPT ---
Operative Report (Standard) Operative Information Date of Procedure: 10/06/24 Pre-Operative Diagnosis: 1. Left shoulder rotator cuff tear 2. Left shoulder long head of biceps tendinopathy Post-Operative Diagnosis: 1. Left rotator cuff tear 2. Left shoulder long head of biceps partial tearing and tendinopathy Surgery/Procedure Performed: 1. Left shoulder arthroscopic rotator cuff repair 2. Left shoulder long head biceps subpectoral mini open tenodesis legal writing professor: Yes Eyelet Maker: Barbara Leung Tasks completed by construction management assistant: Opening & closing, Implanting device, Hemostasis: Electrocautery and Retracting Type of Anesthesia: General/Regional RN Documented Start/Stop Times: Operation Date: 10/06/24 09:30 Case Time Into Pre-Op 10/06/24 07:33 Out of Pre-Op 10/06/24 09:15 Anesthesia Start 10/06/24 09:27 Into Room 10/06/24 09:27 Procedure Start 10/06/24 09:54 Procedure Start Time: 09:54 Procedure Stop Time: 11:11 Select all DRAINS/GRAFTS/IMPLANTS that apply: Implanted device Implanted device details: Arthrex fiber tack triple loaded all suture anchor, bio composite 4.75 mm swivel lock anchor, biceps button Estimated Blood Loss: 10 cc Specimen collected: No Description of surgery: Patient was identified in the preoperative holding area by name, medical record number, and date of . The operative extremity was marked. All questions were answered to the patient satisfaction. Interscalene block was then administered. At time of his procedure, patient was brought to the operative suite and positioned supine on a standard operating table. General anesthesia was induced and LMA placed. He was positioned in a lateral decubitus position with all bony prominences being well-padded. He was held in place with a beanbag. An axillary roll was placed. We spun the bed 45 degrees. We prepped and draped the left upper extremity in normal, sterile orthopedic fashion. We performed a timeout confirming the side, site, and operation to be performed. No concerns were voiced and elected to proceed with surgery. 2 g Ancef is administered IV prior to incision by anesthesia staff. I then established a standard posterior portal 2 fingerbreadths inferior medial to the posterior border scapular spine. Blunt tipped trocar was used to enter the glenohumeral joint which was filled with normal saline with epinephrine. The joint was then examined with the arthroscope. Partial tearing long head biceps tendon was noted. Near full-thickness tearing of the supraspinatus was noted. Interstitial laminar tearing of the subscapularis was noted with normal-appearing footprint. I then established an anterior interval portal. Long a biceps tenotomy was performed at the biceps labral junction. The labrum and biceps were debrided. There was minimal fraying of the labrum. Cartilage was pristine throughout. The articular sided supraspinatus was debrided as was the subscapularis. I then withdrew the arthroscope and reentered the shoulder and subacromial space. Lateral portal was established. Flexible cannula was placed for suture management. Debridement of the bursal side of the supraspinatus revealed approximately 1 x 1 cm tear. The footprint was lightly debrided and decorticated. I then proceeded with double row fixation. Via percutaneous portal, a fiber tack anchor was placed along the chondral margin of the humeral head. I then passed the 6 limbs of suture sequentially through the rotator cuff tissue with a scorpion suture passer. The sutures were all passed laterally and eventually through a the eyelet of a swivel lock anchor which was placed along the lateral margin of the greater tuberosity after tensioning suture. There was stable fixation and excellent reduction of our rotator cuff tissue. Sutures were cut flush with the knotless anchor. The subacromial space was thoroughly lavaged. Instruments were removed. Portal sites were closed with interrupted [id number] fashion 3-0 nylon suture. I then turned my attention to the long head biceps tendon. The arm was taken out of traction. 2 cm oblique incision was made along the inferior border the pectoralis major tendon. Blunt dissection was carried down the level of the fascia which was opened just inferior to the pectoralis major tendon. The short head biceps tendon was retracted medially as was the pec tendon laterally. Long the biceps tendon was retrieved out of the wound. Significant tendinopathy was noted. Whipstitch was performed with the vendor supplied fiber loop suture at the musculotendinous junction. Suture tail was passed through the knotless anchor. I then drilled in the subpectoral region of the bone unit cortically. Button was then passed into the intramedullary canal and flipped for an onlay tenodesis. Sutures were tensioned and tied. Wound was irrigated. Dermis was reapproximated buried 3-0 Vicryl suture and subcuticular 4-0 Monocryl and Dermabond. Bulky sterile compression dressing was applied. He he was safely extubated in the office suite and awakened from anesthesia. He tolerated the procedure well without apparent complication. Need for skilled field administrative assistant: Barbara Leung PA-C was critical to the outcome of the case. During the course of the procedure the physician field administrative assistant played a vital role. Her intimate knowledge of my steps in the procedure aided in safe and expedient completion of the procedure. The PA played a vital role in positioning particularly in obtaining the appropriate positioning. The PA was also vital in the retraction of soft tissues during the exposure and protecting vital structures. The PA was also vital and obtaining tendon reduction and assisting with hardware placement. She also played a vital role in closure and sling application with my direct supervision. Postoperative plan: Same-day discharge anticipated. Multimodal pain management with Tylenol, NSAIDs and oxycodone. Aspirin 81 mg twice daily for the DVT prophylaxis x 2 weeks Sling x 6 weeks Physical therapy start in 2 weeks with normal protocol Follow-up in 2 weeks for suture removal Surgical Findings: Near full-thickness supraspinatus tear. Partial tearing long head biceps tendon. Complications Complications: No Admit VTE Documentation VTE Present on Admission: No VTE Mechan Device Prophylaxis: SCD's VTE Pharm Prophylaxis ordered?: Yes
--- NOTE | 2024-10-06 11:21 | PCM.POST.ANE ---
Anesthesia: Postop Eval I Current Vital Signs Temperature: 96.7 F Pulse Rate: 92 Blood Pressure: 147/91 Respiratory Rate: 18 Pulse Ox: 98 Oxygen Delivery Method: Room Air Assessment Airway patent: Yes Spontaneous unlabored respirations: Yes Mental status: Awake nausea: No Vomiting: No Anesthesia Complication: No Fluid Hydration Crystalloid volume administer (ml): 1,400 Total IV fluid infused: 1,400 Progress Note Anesthesia document: Postop Eval 1 completed: Yes
[2024-10-06] MEDS: Ketorolac 15 MG/ML Vial IV (11:45)
--- NOTE | 2024-10-06 14:00 | POSTOPAN2_ITS ---
Anesthesia Postop Eval I Sum Postop Eval Completion status Anesthesia document: Postop Eval 1 completed: Yes Anesthesia Postop Eval I Summary Anesthesia Postop Eval I Summary: Anesthesia Postop Eval I: Assessment Summary Airway patent Yes 10/06/24 11:22 CAT CRACKER OPERATOR.[email or web address] Spontaneous unlabored Yes 10/06/24 11:22 CAT CRACKER OPERATOR.JDEF respirations Mental status Awake 10/06/24 11:22 CAT CRACKER OPERATOR.JDEF nausea No 10/06/24 11:22 CAT CRACKER OPERATOR.JDEF Vomiting No 10/06/24 11:22 CAT CRACKER OPERATOR.JDEF Anesthesia Postop Eval I: Fluid Summary Crystalloid volume administer 1,400 10/06/24 11:22 CAT CRACKER OPERATOR.JDEF (ml) Colloids volume administered ( ml) Blood Product volume administered (ml) Total IV fluid infused 1,400 10/06/24 11:22 CAT CRACKER OPERATOR.JDEF Anesthesia Postop Eval I: Summary Notes Anesthesia Complication No 10/06/24 11:22 CAT CRACKER OPERATOR.JDEF Anesthesia Complication Comment: Post-operative progress note Anesthesia: Postop Eval II Evaluation Mental status: Awake Pain Level: 1 nausea: No Vomiting: No
--- NOTE | 2024-10-06 14:00 | PCM.POSTANE2 ---
Anesthesia Postop Eval I Sum Postop Eval Completion status Anesthesia document: Postop Eval 1 completed: Yes Anesthesia Postop Eval I Summary Anesthesia Postop Eval I Summary: Anesthesia Postop Eval I: Assessment Summary Airway patent Yes 10/06/24 11:22 MAINTENANCE SERVICE SUPERVISOR.[email or web address] Spontaneous unlabored Yes 10/06/24 11:22 MAINTENANCE SERVICE SUPERVISOR.JDEF respirations Mental status Awake 10/06/24 11:22 MAINTENANCE SERVICE SUPERVISOR.JDEF nausea No 10/06/24 11:22 MAINTENANCE SERVICE SUPERVISOR.JDEF Vomiting No 10/06/24 11:22 MAINTENANCE SERVICE SUPERVISOR.JDEF Anesthesia Postop Eval I: Fluid Summary Crystalloid volume administer 1,400 10/06/24 11:22 MAINTENANCE SERVICE SUPERVISOR.JDEF (ml) Colloids volume administered ( ml) Blood Product volume administered (ml) Total IV fluid infused 1,400 10/06/24 11:22 MAINTENANCE SERVICE SUPERVISOR.JDEF Anesthesia Postop Eval I: Summary Notes Anesthesia Complication No 10/06/24 11:22 MAINTENANCE SERVICE SUPERVISOR.JDEF Anesthesia Complication Comment: Post-operative progress note Anesthesia: Postop Eval II Evaluation Mental status: Awake Pain Level: 1 nausea: No Vomiting: No
== END 2024-10-06 13:10 | disposition home or self-care (01) ==
LOC: SDC 07:18 → AC 07:18
PROVIDERS: Anesthesiology; PCP Family Medicine; Referring Provider Student in an Organized Health Care Education/Training Program; Visit Provider Student in an Organized Health Care Education/Training Program
PROC: (CPT 29827; principal; 2024-10-06 09:15)
DX: M75.102 Unspecified rotator cuff tear or rupture of left shoulder, not specified as traumatic (principal); M75.22 Bicipital tendinitis, left shoulder; M75.42 Impingement syndrome of left shoulder; E66.3 Overweight; Z68.26 Body mass index [BMI] 26.0-26.9, adult
CPT/HCPCS: 29827; 23430; 01716; 64415; 36415; 80048; 80076; 83735; 85025; 85610; 85730; 93005; C1713; J2405

== ENCOUNTER → 2024-10-21 | Outpatient (CLI) | payer OTHER, SELFPAY ==
[2024-10-21 15:55] LABS: Hematocrit 39.3 % (40-54); Hemoglobin 13.7 g/dL (13.0-16.5); Immature Granulocytes Count 0.010 X10^3/uL (0.0-0.0); Mean Corp Hgb Conc 34.9 g/dL (32-36); Mean Corpuscular Volume 86.8 fL (80-94); Mean Platelet Vol. 11.3 fl (6.2-12.0); NRBC Flagged by Analyzer 0 % (0-5); Platelet Count 167 K/mm3 (150-450); RBC Distribution Width CV 12.9 % (11.6-14.6); RBC Distribution Width SD 40.5 fl (35.1-43.9); Red Blood Count 4.53 M/mm3 (4.6-6.2); White Blood Count 4.5 K/mm3 (4.4-11.0)
[2024-10-21 17:02] LABS: AST(SGOT) 18 U/L (<=37); Alanine Aminotransfer ALT/SGPT 14 U/L (<=46); Albumin, Serum 4.3 g/dL (3.4-4.8); Alkaline Phosphatase 62 U/L (40-129); Anion Gap 11 (5-15); BUN 14 mg/dL (4-19); BUN/Creat Ratio 12.5 RATIO (10-20); Calcium,Total 9.1 mg/dL (7.6-11.0); Carbon Dioxide 23.9 mmol/L (21.0-32.0); Chloride 106 mmol/L (98-108); Globulin 2.2 g/dL (2.2-4.2); Glucose 132 mg/dL (70-99); Potassium 3.9 mmol/L (3.3-5.1)
[2024-10-21 17:07] LABS: PSA,Total - Annual Screen 1.99 ng/mL (0.02-4.00)
[2024-10-23 15:08] LABS: ANTINUCLEAR ANTIBODIES DIRECT Negative (Negative)
[2024-10-23 16:09] LABS: PROEL- A/G Ratio 1.5 (0.7-1.7); PROEL- Albumin 3.9 g/dL (2.9-4.4); PROEL- Alpha-1 Globulin 0.2 g/dL (0.0-0.4); PROEL- Alpha-2 Globulin 0.5 g/dL (0.4-1.0); PROEL- Beta Globulin 0.8 g/dL (0.7-1.3); PROEL- Gamma Globulin 1.0 g/dL (0.4-1.8); PROEL- Globulin, Total 2.6 g/dL (2.2-3.9); PROEL- TOTAL PROTEIN 6.5 g/dL (6.0-8.5); PROEL-M-Spike Comment: g/dL (Not Observed)
== END | disposition home or self-care (01) ==
LOC: MTLAB 13:47
PROVIDERS: PCP Family Medicine; Referring Provider Family Medicine; Visit Provider Family Medicine
DX: R20.2 Paresthesia of skin (principal); Z12.5 Encounter for screening for malignant neoplasm of prostate; D69.6 Thrombocytopenia, unspecified
CPT/HCPCS: 36415; 80053; 84153; 84165; 84443; 85025; 86038; G0103

== ENCOUNTER → 2024-11-05 | Outpatient (CLI) | payer OTHER, SELFPAY ==
--- NOTE | 2024-11-05 13:56 | NEURO ---
NCS and/or EMG Patient Report Ordering Doctor: Mike Coates DATE OF SERVICE: 11/05/24 Talon presents with complaints of numbness and tingling in the feet. Electrodiagnostic findings: Right peroneal motor nerve demonstrates normal distal NC, improved/D. Left peroneal motor nerve demonstrates normal distal NCV, amplitude and conduction velocity. Tibial motor response within normal limits bilaterally. Prolonged right and left tibial F?wave. Prolonged H?reflex bilaterally. Absent right lateral plantar response. Prolonged left sural latency. Needle EMG testing was performed the lower limbs. All muscles tested showed no evidence of denervation with normal motor unit action potentials. Electrodiagnostic impression: This is an abnormal study in the lower limbs. 1. 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 2. No electrodiagnostic evidence is noted for lumbar radiculopathy. Multi Select Codes Neurology Neurology Interp Codes: 14182-16 Musc test done w/n test comp (interp) (2) and 12998-01 Nrv cndj test 11-12 studies (interp)
--- NOTE | 2024-11-05 13:56 | NEURO ---
NCS and/or EMG Patient Report Ordering Doctor: Mike Coates DATE OF SERVICE: 11/05/24 Talon presents with complaints of numbness and tingling in the feet. Electrodiagnostic findings: Right peroneal motor nerve demonstrates normal distal NC, improved/D. Left peroneal motor nerve demonstrates normal distal NCV, amplitude and conduction velocity. Tibial motor response within normal limits bilaterally. Prolonged right and left tibial F?wave. Prolonged H?reflex bilaterally. Absent right lateral plantar response. Prolonged left sural latency. Needle EMG testing was performed the lower limbs. All muscles tested showed no evidence of denervation with normal motor unit action potentials. Electrodiagnostic impression: This is an abnormal study in the lower limbs. 1. 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 2. No electrodiagnostic evidence is noted for lumbar radiculopathy. Multi Select Codes Neurology Neurology Interp Codes: 37166-01 Musc test done w/n test comp (interp) (2) and 24960-03 Nrv cndj test 11-12 studies (interp)
== END | disposition home or self-care (01) ==
LOC: PSN 12:07
PROVIDERS: PCP Family Medicine; Referring Provider Family Medicine; Visit Provider Family Medicine
DX: R20.2 Paresthesia of skin (principal)
CPT/HCPCS: 95886; 95913

== ENCOUNTER 2025-01-28 11:30 | Outpatient (RCR) | payer OTHER, SELFPAY ==
--- NOTE | 2024-10-22 08:46 | HP.PTEVAL_ITS ---
Patient's Visit Information Visit Information Visit Information: DUTCH VELEZ is a 69 year old M referred to Physical Therapy by MONALISA Sabillon with a diagnosis of S/P L RTC tear and bicep tenodesis on 10/06/24. Date of Evaluation: 10/21/24 Physical Therapist: ARNALDO Mazariegos Visit Plan Frequency: 2x /Week Duration: 3 Months Plan: 2X/ week for L shoulder PROM until 4 weeks post op (no ER greater than 40 degrees) (November 03, 2024), then AAROM X 4 weeks (12-01-24), AROM, scapular and RC strength per protocol HEP: scapular retraction, pendulums Subjective Subjective: Pt had surgery October 06 for RC repair on the L and bicep tenodesis. Pt is to be in the sling X 6 weeks. He is having trouble sleeping. He is on oxycodone and Neurontin for Neuropathy. He is still sleeping in a recline since May 2023 since R RC repair. His goal is to be able to sleep in a bed again. He is only 85% on the R arm. He is retired. He is caretaking his parents. He is active and moves things with his other arm. Pain L shoulder: Pain Intensity (Out of 10): 0 Objective Objective: He is R handed PROM L shoulder: L shoulder flexion 145 L shoulder ER 46 L bicep 120 flexion L elbow ext 0 Instructed pt in pendulums and scapular retraction and importance on not using his shoulder Actively at this time Balance/Special Test Scores Quick DASH Score: 63.6350 Goals Goal 1:: I HEP Goal Time Frame: 8-12 Weeks Goal 2:: Increase R shoulder AROM to full shoulder ROM (PROM of the L shoulder at eval: L shoulder flexion 145 L shoulder ER 46 L bicep 120 flexion L elbow ext 0) Goal Time Frame: 8-12 Weeks Goal 3:: Increase B shoulder strength to be equal Goal Time Frame: 8-12 Weeks Goal 4:: Return to full function of the L shoulder with ADL's Goal Time Frame: 8-12 Weeks Rehabilitation Potential Rehabilitation Potential: Good Anticipated Interventions Patient/Client Instruction: Educate patient on: Condition and Plan of Care For the Purpose of:: To decrease pain, To decrease swelling/inflammation, To increase ROM, To improve nutrient delivery to tissue, To improve muscle performance and motor function, To improve ability to perform ADL's, To increase tolerance to activity/condition/position, To improve performance and independ ence with ADL's, To decrease level of supervision to perform tasks and To improve ability of physical actions for home/community/work/leisure Therapeutic Exercise to Include: Strength training, Postural training, Flexibilty training, Passive ROM, Active ROM and Scapular Strength/Stabilization For the Purpose of:: To decrease pain, To increase ROM, To improve nutrient delivery to tissue, To improve muscle performance and motor function, To improve ability to perform ADL's, To increase tolerance to activity/condition/position, To improve health of tissue, To decrease soft tissue restriction and To increase flexibility/ROM Manual Therapy Techniques to Include: Passive ROM For the Purpose of:: To decrease pain, To increase ROM, To improve nutrient delivery to tissue, To improve muscle performance and motor function, To improve ability to perform ADL's, To increase tolerance to activity/condition/position, To improve performance and independence with ADL's, To improve health of tissue, To decrease soft tissue restriction and To increase flexibility/ROM Cryotherapy (ice pack, ice massage): Yes Thermo therapy (hot pack): Yes For the Purpose of:: To decrease pain, To decrease swelling/inflammation, To increase ROM and To improve nutrient delivery to tissue Text: Thank you for the opportunity to evaluate your patient. For Medicare and Medicare HMO plans, please review the plan of care and approve it. It will need to be FAXED BACK to us at [phone] for Medicare purposes. For Medicare only, by signing this I certify the plan of care. Please let me know if there are questions or concerns regarding this plan of care. Physician Signature: Date:
--- NOTE | 2025-01-28 12:28 | HP.PTDCSUM ---
Discharge Summary D/C summary: It has been my pleasure to treat DUTCH VELEZ referred by MONALISA Sabillon, with the diagnosis of S/P L RTC tear and bicep tenodesis on 10/06/24 for a total of 16 visit(s). Discharge Date: 01/28/25 Please see the following information for a summary of their discharge status. Subjective Subjective: No pain. Every once in awhile reaching out he will feel it with a half gallon of milk and sleeping will bother it. He feels that he is strong. Pain L shoulder: Pain Intensity (Out of 10): 0 Overall Improvement % Improvement: 40 Objective Objective/Function: L shoulder flexion 167 L shoulder IR T8 UE MMT: R shoulder flex 18.3 and L 20.3 R shoulder ABD 16.6 and L 18.6 R shoulder ER 13.7 and L 16.7 Goals Goal 1:: I HEP Goal Progress: Goal Met Goal 2:: Increase R shoulder AROM to full shoulder ROM (PROM of the L shoulder at eval: L shoulder flexion 145 L shoulder ER 46 L bicep 120 flexion L elbow ext 0) Goal Progress: Goal Met Goal 3:: Increase B shoulder strength to be equal Goal Progress: Goal Met Goal 4:: Return to full function of the L shoulder with ADL's Goal Progress: Goal Met Plan Plan: DC PT to HEP D/C Information Discharge Comments: DC PT to HEP d/c sentence: If there are questions or concerns regarding this patient's physical therapy, please feel free to call me at [phone]. Thank you for the referral of this patient. Sincerely, Andressa Anguiano, MPT Balance/Gait/Functional tests Balance/Special Test Scores Quick DASH Score: 6.8175 Improvement % Improvement: 40
== END 2025-01-28 19:00 | disposition home or self-care (01) ==
LOC: PT 11:30
PROVIDERS: PCP Family Medicine
DX: M75.22 Bicipital tendinitis, left shoulder (principal); S46.012D Strain of muscle(s) and tendon(s) of the rotator cuff of left shoulder, subsequent encounter; M19.012 Primary osteoarthritis, left shoulder
CPT/HCPCS: 97110; 97140; 97161; 97530

== ENCOUNTER 2025-02-12 08:52 | Day surgery (SDC) | payer OTHER, SELFPAY ==
--- NOTE | 2025-02-10 14:34 | PAT.ANESEVAL ---
Pre-Assessment Diagnosis/Proposed Procedure Planned Operative Procedure(s): COLONOSCOPY Anesthesia History Anesthesia History - paint stockman: Anesthesia History - paint stockman Hx Hospitalization No 02/10/25 12:05 Any Problems With Anesthesia No 02/10/25 12:05 Cholinesterase deficiency No 02/10/25 12:05 You/Your Family Experience No 02/10/25 12:05 fever (hyperthermia) with Relationship Recent Exposure to Contagious No 10/06/24 07:45 Disease Does patient have nerve No 02/10/25 12:05 stimulator Patient instructed to have device shut off --Does patient have Pacemaker or ICD? When Was Last Pacemaker Check QUESTION #4 FULL TEXT: You/Your Family Experience fever (hyperthermia) with Anesthesia Last Oral Intake Last Oral intake: Last Oral Intake NPO since Meds taken in AM with sips of water? Meds patient instructed to take am of surgery PONV PONV - paint stockman: PONV - paint stockman Female No 02/10/25 12:05 HX of Motion Sickness No 02/10/25 12:05 HX of N/V After Surgery No 02/10/25 12:05 Non-Smoker Yes 02/10/25 12:05 Duration of Surgery greater No 02/10/25 12:05 than 60 minutes Number of Risk Factors 1 02/10/25 12:05 PONV Score Low Risk 02/10/25 12:05 Height & Weight Height & Weight: Anesthesia: Height & Weight Height 5 ft 10 in 11/26/24 14:23 Respiratory Assessment Respiratory Assessment - paint stockman: Respiratory Tract Infection Hx - paint stockman Hx Respiratory Tract Infection No 02/10/25 12:05 STOP Sleep Apnea STOP Sleep Apnea - paint stockman: STOP Sleep Apnea - paint stockman Hx Hypertension No 02/10/25 12:05 Hx Sleep Apnea No 02/10/25 12:05 CPAP No 02/10/25 12:05 BIPAP Do you snore loudly (louder No 02/10/25 12:05 than talking or can be heard Do you often feel tired/ No 02/10/25 12:05 fatigued/ sleepy during daytime? Has anyone observed you stop No 02/10/25 12:05 breathing during sleep? STOP Results Negative 02/10/25 12:05 QUESTION #5 FULL TEXT : Do you snore loudly (louder than talking or can be heard through closed doors)? Tobacco Use History Tobacco Use History - paint stockman: Tobacco Use History - paint stockman Tobacco Use Smoking Status Never smoker 02/10/25 12:05 Hx Tobacco Use No 02/10/25 12:05 Years Smoking Packs Smoked per Day Smoking Cessation Date was within the last 15 years Hx Smoking Cessation Date Hx Smoking Cessation No 02/10/25 12:05 Counseling Hematologic Medial History Hematologic Hx - paint stockman: Hematologic Medical Hx - record cutter Hx of Blood Transfusion No 02/10/25 12:05 Hx of Transfusion in last 3 No 02/10/25 12:05 Months Date of Last Transfusion (if within last 3 months) Ever experience any problems No 02/10/25 12:05 with transfusion(s)? Specify any problems Hx of Preganancy in last 3 N/A 02/10/25 12:05 Months Nurse Filling Out Transfusion VCHRISTIN 02/10/25 12:05 & Questions: Date: 02/10/25 02/10/25 12:05 Time: 12:08 02/10/25 12:05 Patient unable to answer at this time (ie. confused, unrespo /Reproduction History /Reproductive History - paint stockman: /Reproductive Hx- paint stockman Hx Now No 02/10/25 12:05 Gestational Age (in weeks): EDC: Hx Hx Para Hx Section SAB No 02/10/25 12:05 REPLACED BY [facility] Medical History (Updated 02/10/25 @ 12:05 by Rani King) Neuropathy Easy bruising History of vertigo Heartburn Lipoma Lipoma of shoulder Back problem Non-smoker History of echocardiogram Hemorrhoids Inability to walk Nausea & vomiting Abdominal pain Rectal bleeding Home Medications ?Medication ?Instructions ?Recorded ?Last Taken ?Type magnesium oxide 400 mg PO QDAY 11/26/24 Unknown History cyanocobalamin (vitamin B-12) 50 50 mcg PO DAILY 02/10/25 Unknown History mcg tablet (Vitamin B-12) Allergy/AdvReac Type Severity Reaction Status Date / Time meloxicam AdvReac Intermediate Other Verified 02/10/25 12:01 Family History Father Hypertension Mother Breast cancer Hypertension Brother CAD (coronary artery disease) Hypertension Surgical History (Updated 02/10/25 @ 12:05 by Rani King) Hx of repair of left rotator cuff History of colonoscopy History of rotator cuff surgery Partial traumatic metacarpophalangeal amputation of finger S/P rotator cuff repair Social History Smoking Status: Never smoker alcohol intake: never substance use type: does not use additional social history: no asa, ibuprofen prn Audit: Pertinent Findings Pertinent Findings EKG Perinent findings: 09/30/2024. Normal sinus rhythm. Echo (EF%) pertinent findings: 09/25/2022. EF is 65%. PASP is 26 mmHg. No aortic stenosis is noted. Recommendation Anesthesia Recommendation Anesthesia recommendation: OPTIMIZED for anesthesia
[2025-02-12] VITALS (10 sets, daily range): BP systolic 98–134; BP diastolic 59–90; PULSE 57–81; RESP 16–18; TEMP 36.4–36.6; O2SAT 98–100; BMI 24.8
[2025-02-12] MEDS: Lactated Ringers 1,000 ML 15 ML IV (09:12)
--- NOTE | 2025-02-12 09:17 | PCM.PRE.AN2 ---
ASA Classification* ASA Classification ASA Classification: 2 Assessment & Plan Anesthesia* Anesthesia Assessment Anesthesia Assessment: Discussed sedation and/or anesthesia options, risks, benefits, and alternatives with patient/parents/legal guardian/POA. Questions invited. The patient/parents/legal guardian/POA seems to understand and agrees to proceed with anesthesia plan. Reviewed the physical assessment, medical history, allergy history and patient home medications list prior to surgery/procedure/anesthetic and documented any changes. Performed airway and anesthesia risk assessments. Anesthesia Type Anesthesia Type: MAC History Source History Obtained from:: Patient and Chart Anesthesia Focused Assessment* Temperature: 97.8 F Pulse Rate: 81 Blood Pressure: 131/90 Respiratory Rate: 16 Pulse Ox: 100 Oxygen Delivery Method: Room Air Airway Assessment Mouth opens: >3 cm Mallampati Score: II Teeth Condition: Intact and Missing Neck Range of motion (ROM): Full ROM Labs Anesthesia Preop lab: CBC WBC, (4.4-11.0) 4.5 K/mm3 10/21/24, 13:49 RBC, (4.6-6.2) 4.53 M/mm3 L 10/21/24, 13:49 Hgb, (13.0-16.5) 13.7 g/dL 10/21/24, 13:49 Hct, (40-54) 39.3 % L 10/21/24, 13:49 Plt Count, (150-450) 167 K/mm3 10/21/24, 13:49 CHEMISTRY Potassium, (3.3-5.1) 3.9 mmol/L 10/21/24, 13:49 Sodium, (133-145) 141 mmol/L 10/21/24, 13:49 Magnesium, (1.5-2.2) 2.1 mg/dL 09/30/24, 14:11 Phosphorus, (2.5-4.9) 3.1 mg/dL 09/24/22, 07:30 BUN, (4-19) 14 mg/dL 10/21/24, 13:49 Creatinine, (0.70-1.20) 1.14 mg/dL 10/21/24, 13:49 Glucose, (70-99) 132 mg/dL H 10/21/24, 13:49 POC Glucose, (74-106) 91 mg/dL 09/25/22, 06:18 TSH, (0.300-4.200) 1.330 uIU/mL 10/21/24, 13:49 COAG PT, (11.7-14.9) 14.1 SECONDS 09/30/24, 14:11 Pre-Assessment Diagnosis/Proposed Procedure Planned Operative Procedure(s): COLONOSCOPY Anesthesia History 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 When Was Last Pacemaker Check QUESTION #4 FULL TEXT: You/Your Family Experience fever (hyperthermia) with Anesthesia Last Oral Intake Last Oral intake: Last Oral Intake NPO since 06:00 02/12/25 09:04 Meds taken in AM with sips of No 02/12/25 09:04 water? 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 Female No 02/10/25 12:05 HX of Motion Sickness No 02/10/25 12:05 HX of N/V After Surgery No 02/10/25 12:05 Non-Smoker Yes 02/10/25 12:05 Duration of Surgery greater No 02/10/25 12:05 than 60 minutes Number of Risk Factors 1 02/10/25 12:05 PONV Score Low Risk 02/10/25 12:05 Height & Weight Height & Weight: Anesthesia: Height & Weight Height 5 ft 10 in 02/12/25 09:04 Weight: 78.5 kg 02/12/25 09:04 Body Mass Index (BMI) 24.8 02/12/25 09:04 Respiratory Assessment Respiratory Assessment - 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 Has anyone observed you stop No 02/10/25 12:05 breathing during sleep? STOP Results Negative 02/10/25 12:05 QUESTION #5 FULL TEXT : Do you snore loudly (louder than talking or can be heard through closed doors)? 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 Specify any problems Hx of Preganancy in last 3 N/A 02/10/25 12:05 Months Nurse Filling Out Transfusion VCHRISTIN 02/10/25 12:05 & Questions: Date: 02/10/25 02/10/25 12:05 Time: 12:08 02/10/25 12:05 Patient unable to answer at this time (ie. 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 operator Hx Now No 02/10/25 12:05 Gestational Age (in weeks): EDC: Hx Hx Para Hx Section SAB No 02/10/25 12:05 Active Medications Active Medications: Current Medications Generic Name Dose Route Start Last Admin Trade Name Freq PRN Reason Stop Dose Admin Lactated Ringer's 1,000 mls @ 15 mls/hr 02/12/25 09:00 02/12/25 09:12 IV 15 mls/hr .Q48H VIMAL Administration PFS Medical History Neuropathy Easy bruising History of vertigo Heartburn Lipoma Lipoma of shoulder Back problem Non-smoker History of echocardiogram Hemorrhoids Inability to walk Nausea & vomiting Abdominal pain Rectal bleeding Home Medications ?Medication ?Instructions ?Recorded ?Last Taken ?Type magnesium oxide 400 mg PO QDAY 11/26/24 Unknown History cyanocobalamin (vitamin B-12) 50 50 mcg PO DAILY 02/10/25 Unknown History mcg tablet (Vitamin B-12) Allergy/AdvReac Type Severity Reaction Status Date / Time meloxicam AdvReac Intermediate Other Verified 02/12/25 09:12 Family History Father Hypertension Mother Breast cancer Hypertension Brother CAD (coronary artery disease) Hypertension Surgical History Hx of repair of left rotator cuff History of colonoscopy History of rotator cuff surgery Partial traumatic metacarpophalangeal amputation of finger S/P rotator cuff repair Social History Smoking Status: Never smoker alcohol intake: never substance use type: does not use additional social history: no asa, ibuprofen prn Review of Systems (Anesthesia) ROS Narrative System reviewed and no additional complaints, except as documented.
--- NOTE | 2025-02-12 09:50 | PCM.HP.BLA ---
History and Physical Date of Service: 11/26/24 MR#: [id number] Acct: [id number] Name: DUTCH VELEZ Rep #: [id number] : 1955 Provider: Dr. Lj Aguilar MD Age/Sex: 69/M Location: [facility] Status: Signed Intake Vital Signs 10/06/2506:45 11/26/2513:23 Height 5 ft 10 in 5 ft 10 in Weight: 177 lb BMI 25.4 BP 106/68 Blood Pressure Location Rt brachial Position Sitting Respiration 17 Pulse 78 Pulse Source Monitor Pulse Oximetry (%) 98 Oxygen Delivery Method room air Intake Visit Reasons: HEMORRHOIDS Chief Complaint: hemorrhoids Is patient in pain?: No Allergies meloxicam Adverse Reaction (Intermediate, Verified 11/26/24 14:24) Other Medications ?Medication ?Instructions ?Recorded ?Confirmed ?Type acetaminophen 500 mg capsule 1,000 mg PO Q6H PRN SHOULDER PAIN 05/17/23 11/26/24 History oxycodone 5 mg tablet 5 mg PO 4X/DAY PRN postOp Pain 05/07/24 11/26/24 History docusate sodium 100 mg capsule 100 mg PO QDAY 11/26/24 11/26/24 History duloxetine 30 mg capsule,delayed 30 mg PO QDAY 11/26/24 11/26/24 History release magnesium oxide 400 mg PO QDAY 11/26/24 11/26/24 History Have you fallen in the past year?: No PFSH Medical History (Updated 11/26/24 @ 18:[address] Lj Aguilar MD) Nausea & vomiting Abdominal pain Rectal bleeding Inability to walk Lipoma Lipoma of shoulder Easy bruising History of vertigo Heartburn Back problem Non-smoker History of echocardiogram Hemorrhoids Surgical History History of colonoscopy History of rotator cuff surgery Partial traumatic metacarpophalangeal amputation of finger S/P rotator cuff repair Family History Father Hypertension Mother Breast cancer Hypertension Brother CAD (coronary artery disease) Hypertension Social History Smoking Status: Never smoker alcohol intake: never substance use type: does not use additional social history: no asa, ibuprofen prn HPI HPI HPI: The patient is a 69-year-old male presenting with hemorrhoids. Initially diagnosed in 2018, as part of a colonoscopy with Dr. Saad Mullen the patient chose to manage the condition conservatively. He denies any [id number] treatments. Recently he reports daily seepage that is clear with an unpleasant odor without bleeding, pain, or itching. Persistent constipation has been a concern, complicated by neuropathy treatment medications, and is managed with Colace as just initiated by his primary care provider a month ago. Family history is significant for maternal grandmother colon cancer (diagnosed in her 70s) and paternal diverticulitis. His 2011 colonoscopy revealed benign polyps and a tortuous colon, with the 2018 colonoscopy showing no significant issues apart from a tortuous colon. The patient also reports minimal heartburn following medication adjustments and uses oxycodone as needed for post-operative left shoulder pain. Bowel movements have improved both from patient's longer history and more recent history, occurring one to two times daily. He confirms there is generally no straining involved. He also confirms that his toilet time is To less than 15 minutes. He denies any recent bloody or dark stools. ROS General General: No weight change, appetite, fatigue, colon cancer, breast cancer or weakness HEENT HEENT: No difficulty swallowing, eye injury, eye surgery, swollen glands or hoarseness Endo Endocrine: No thyroid disease, diabetes mellitus, thyroid cancer, Hair loss, heat intolerance or cold intolerance Skin Skin: No rash or changing moles Musc Musculoskeletal: Yes back problems and arthritis; No rheumatoid arthritis, gout or joint pain Cardio Cardiovascular: No murmur, pacemaker, heart disease, atrial fibrillation, high blood pressure, heart attack, heart stent, palpitations, shortness of breath with exertion or chest pain Psych Psychiatric: No depression, anxiety or hearing voices Resp Respiratory: No shortness of breath, No sleep apnea, No cough, No COPD, No asthma, No emphysema and No wheezing Gastro Gastrointestinal: No abdominal pain, No nausea or vomiting, No diarrhea, No constipation, No blood in stool, No acid reflux, Yes hemorrhoids, No ulcers, No gallbladder problem and No black,tarry stools Tripp Hematologic: No blood thinners, No blood disorders, No bleeding, No anemia and No blood clots Neuro Neurologic: No system reviewed and no additional complaints, except as documented, No as per HPI, No abnormal gait, No abnormal hearing, No abnormal movements, No abnormal speech, No behavioral changes, No burning sensations, No confusion, No convulsions, No disequilibrium, No dizziness, No localized weakness, No frequent falls, No headache(s), No lack of coordination, No loss of vision, No memory loss, Yes numbness, No other visual disturbances, No radicular pain, No restless legs, No sensory deficit, No syncope, Yes tingling, No tremor(s), No weakness and No other Exam Const General: cooperative and no acute distress Orientation: alert, awake and oriented x3 Resp Effort & Inspection: normal respiratory effort GI Other: Circumferential skin tags, predominantly internal hemorrhoids with right-sided external (posteriorly located) component. Largest internal is in the left lateral position. There is no pain with exam. Assessment and Plan Assessment and Plan (1) Hemorrhoids: Status: Chronic Comment: Patient 69-year-old male who makes consultation related to hemorrhoids. These are both internal and external in nature (but predominantly internal as found on exam). These were first diagnosed at colonoscopy in 2018. According to EMR, patient was offered hemorrhoidectomy at that time but has been largely asymptomatic. More recently he has developed some seepage associated with these hemorrhoids and wishes to investigate his treatment options. I discussed with him that since his last colonoscopy was now 7 years ago I would strongly recommend we update this exam to definitively say that his GI tract has been cleared of more concerning diagnoses and then, simultaneously, consider endoscopic banding of his hemorrhoids. I shared that this procedure is normally reserved for lower grade hemorrhoids, however, I believe it could improve things to the point that patient's chief complaint is addressed. I shared I had a difficult time recommending significant surgical intervention with this being his chief complaint as other treatments are significantly more painful. Additionally, I stressed that I would like him to work on his tendency for constipation prior to undergoing intervention as a means of trying to ensure the efficacy of treatment and avoid relapse if possible. Plan: ? Plan will be to complete colonoscopy with endoscopic banding on first mutually agreeable date under local MAC. Pre-procedure prep discussed and paper instructions provided. Patient is also made aware that he will need to have a sales route driver with him the day of the procedure. (2) Constipation: Status: Chronic Comment: Lifelong constipation now better with use of Colace. Patient encouraged to consider water intake. Patient also encouraged to consider use of prokinetic agents if he goes longer than a day without a bowel movement. We discussed both medications and natural means. I also discussed the importance of this as related to trying to ensure the benefit from intervention for hemorrhoids. Plan: ? Patient advised to take capful of MiraLAX if not experiencing bowel movement daily ? Patient asked to consider increasing water intake and calculating daily fiber intake ? Patient to continue Colace if deriving benefit presently I have examined the patient and the H&P has been reviewed. There are no clinical changes since date of exam. Patient confirms his symptoms are largely status quo. He also confirms that he completed prep for today's procedure and his output is now clear. Proceed to endoscopy suite for colonoscopy with endoscopic banding.
--- NOTE | 2025-02-12 10:00 | COLBX_PTH ---
PATIENT: DUTCH VELEZ LOC: EN U#:[id number] AGE/SX: 69/M ROOM: RE02/12/[address]: Dr. Lj Aguilar MD : 1955 BED: DIS: 02/12/2025 SPEC #: [id number] RECD: 02/12/25 12:23 STATUS: MALCOLM REPrecious #: [id number] ANA: 02/12/25 10:[address]: Lj Aguilar DEPT: SURGICAL PATHOLOGY RECD BY: Darin Godfrey ENTERED: 02/12/25 13:17 SP TYPE: COLON BX OTHR DR: Dr. Mike Coates MD Tissues: A - Ascending colon B - Transverse colon C - Anal region Procedures: Surgery Specimen Level IV HEADER OPERATION: Colonoscopy with hemorrhoid banding, polypectomy, biopsy PRE-OP DIAGNOSIS: Hemorrhoids TISSUE SUBMITTED: A- Ascending colon biopsy, B- Transverse colon polyp, C- Anal polyp MICROSCOPIC DIAGNOSIS A. Ascending colon, biopsy: - Focal erosion with mild acute inflammation. - Melanosis coli. - Focal superficial hyperplastic crypt change, negative for dysplasia (deeper sections examined). B. Transverse colon, polyp, biopsy: - Tubular adenoma. C. Anus, polyp, biopsy: - Prolapsed anal mucosa with features of hyperplastic/inflammatory polyp and congested blood vessels, consistent with hemorrhoid. MICROSCOPIC DESCRIPTION Slides are reviewed. GROSS DESCRIPTION A. Received in fixative is one container labeled with the patient's name and designated Ascending colon biopsy. The specimen consists of one irregular fragment of monroe tissue that measures 0.2 cm. The specimen is totally submitted in one cassette. B. Received in fixative is one container labeled with the patient's name and designated Transverse colon polyp. The specimen consists of one irregular fragment of monroe tissue that measures 0.7 cm. The specimen is totally submitted in one cassette. C. Received in fixative is one container labeled with the patient's name and designated Anal polyp. The specimen consists of a 0.8 x 0.7 x 0.5 cm red to purple, granular, sessile polyp. The resection margin is inked green and the specimen is trisected. Entirely submitted 1 cassette. [facility] 02/12/2025 CPT:63839u4,21469
--- NOTE | 2025-02-12 10:53 | OP.PROVAT_ITS ---
02/12/2025 Mike Coates [address] [place] [address] Re : Colonoscopy procedure for Talon [place] Dear Dr. Coates This procedure was performed on January. My impressions and recommendations are as follows: Impressions : - Anal mass 0 to 2 cm from the anal verge. - Melanosis in the colon. Biopsied. - One 5 mm polyp in the transverse colon. Biopsied. - Internal hemorrhoids. Banded. Recommendations : - No aspirin, ibuprofen, naproxen, or other non-steroidal anti-inflammatory drugs for 2 days after biopsy. - Await pathology results. - Repeat colonoscopy date to be determined after pending pathology results are reviewed for surveillance based on pathology results. - Telephone my office for pathology results in 1 week. My findings are described in the full procedure note, which is enclosed. If I can be of further assistance, please feel free to contact me at Doctor phone number(s): , Work: . Sincerely, Lj Aguilar MD 02/12/2025 10:53:17 AM This report has been signed electronically.
--- NOTE | 2025-02-12 10:53 | OP.COLON_ITS ---
Patient Name: Talon Vail Procedure Date: 02/12/2025 9:40 AM Date of : 1955 Age: 69 Procedure: Colonoscopy Indications: Screening for colorectal malignant neoplasm Providers: Lj Aguilar MD Referring MD: Mike Coates Medicines: See the Anesthesia note for documentation of the administered medications Patient Profile: Last Colonoscopy: several years ago. Complications: No immediate complications. Estimated blood loss: Minimal. Procedure: Pre-Anesthesia Assessment: - The heart rate, respiratory rate, oxygen saturations, blood pressure, adequacy of pulmonary ventilation, and response to care were monitored throughout the procedure. After I obtained informed consent, the scope was passed under direct vision. Throughout the procedure, the patient's blood pressure, pulse, and oxygen saturations were monitored continuously. The colonoscope was introduced through the anus and advanced to the cecum, identified by appendiceal orifice and ileocecal valve. The colonoscopy was technically difficult and complex due to a tortuous colon. Successful completion of the procedure was aided by using scope torsion. The patient tolerated the procedure fairly well. The quality of the bowel preparation was adequate to identify polyps. Scope In: 10:07:58 AM Scope Withdrawal Time 0 hours 26 minutes 30 seconds Scope Out: 10:43:52 AM Total Procedure Duration Time 0 hours 35 minutes 54 seconds Findings: The digital rectal exam revealed a 1 cm (diameter) firm anal mass palpated 1 to 2 cm from the anal verge. The mass was non-circumferential and located predominantly at the posterior bowel wall. A localized area of mild melanosis was found in the ascending colon. Biopsies were taken with a cold forceps for histology. Estimated blood loss was minimal. A 5 mm polyp was found in the transverse colon. The polyp was semi-sessile. Biopsies were taken with a cold forceps for histology. Estimated blood loss: 2 mL requiring treatment with electrocautery. Internal hemorrhoids were found during retroflexion. The hemorrhoids were Grade II (internal hemorrhoids that prolapse but reduce spontaneously). The endoscope was withdrawn. Two bands were successfully placed. There was no bleeding at the end of the procedure. Impression: - Anal mass 0 to 2 cm from the anal verge. - Melanosis in the colon. Biopsied. - One 5 mm polyp in the transverse colon. Biopsied. - Internal hemorrhoids. Banded. Recommendation: - No aspirin, ibuprofen, naproxen, or other non-steroidal anti-inflammatory drugs for 2 days after biopsy. - Await pathology results. - Repeat colonoscopy date to be determined after pending pathology results are reviewed for surveillance based on pathology results. - Telephone my office for pathology results in 1 week. Procedure Code(s): --- Professional --- 12223, Colonoscopy, flexible; with biopsy, single or multiple 17009, Hemorrhoidectomy, internal, by rubber band ligation(s) Diagnosis Code(s): --- Professional --- Z12.11, Encounter for screening for malignant neoplasm of colon K62.89, Other specified diseases of anus and rectum K63.89, Other specified diseases of intestine D12.3, Benign neoplasm of transverse colon (hepatic flexure or splenic flexure) K64.1, Second degree hemorrhoids CPT copyright 2021 [employer] [employer]. All rights reserved. The codes documented in this report are preliminary and upon community affairs manager review may be revised to meet current compliance requirements. Lj Aguilar MD 02/12/2025 10:53:17 AM This report has been signed electronically. Number of Addenda: 0 Note Initiated On: 02/12/2025 9:40 AM
--- NOTE | 2025-02-12 11:16 | PCM.POST.ANE ---
Anesthesia: Postop Eval I Current Vital Signs Temperature: 97.5 F Pulse Rate: 64 Blood Pressure: 109/70 Respiratory Rate: 16 Pulse Ox: 99 Assessment Airway patent: Yes Spontaneous unlabored respirations: Yes nausea: No Vomiting: No Anesthesia Complication: No Fluid Hydration Crystalloid volume administer (ml): 800 Total IV fluid infused: 800 Progress Note Anesthesia document: Postop Eval 1 completed: Yes
--- NOTE | 2025-02-12 14:17 | POSTOPAN2_ITS ---
Anesthesia Postop Eval I Sum Postop Eval Completion status Anesthesia document: Postop Eval 1 completed: Yes Anesthesia Postop Eval I Summary Anesthesia Postop Eval I Summary: Anesthesia Postop Eval I: Assessment Summary Airway patent Yes 02/12/25 11:16 [employer].TNES Spontaneous unlabored Yes 02/12/25 11:16 [employer].TNES respirations Mental status nausea No 02/12/25 11:16 [employer].TNES Vomiting No 02/12/25 11:16 [employer].TNES Anesthesia Postop Eval I: Fluid Summary Crystalloid volume administer 800 02/12/25 11:16 [employer].TNES (ml) Colloids volume administered ( ml) Blood Product volume administered (ml) Total IV fluid infused 800 02/12/25 11:16 [employer].TNES Anesthesia Postop Eval I: Summary Notes Anesthesia Complication No 02/12/25 11:16 [employer].TNES Anesthesia Complication Comment: Post-operative progress note Anesthesia: Postop Eval II Evaluation Mental status: Awake and Calm Pain Level: 1 nausea: No Vomiting: No Complications Anesthesia Complication: No
--- NOTE | 2025-02-12 14:17 | PCM.POSTANE2 ---
Anesthesia Postop Eval I Sum Postop Eval Completion status Anesthesia document: Postop Eval 1 completed: Yes Anesthesia Postop Eval I Summary Anesthesia Postop Eval I Summary: Anesthesia Postop Eval I: Assessment Summary Airway patent Yes 02/12/25 11:16 [employer]ER.TNES Spontaneous unlabored Yes 02/12/25 11:16 [employer].TNES respirations Mental status nausea No 02/12/25 11:16 [employer].TNES Vomiting No 02/12/25 11:16 [employer].TNES Anesthesia Postop Eval I: Fluid Summary Crystalloid volume administer 800 02/12/25 11:16 [employer]UC[employer].TNES (ml) Colloids volume administered ( ml) Blood Product volume administered (ml) Total IV fluid infused 800 02/12/25 11:16 [employer]UC[employer].TNES Anesthesia Postop Eval I: Summary Notes Anesthesia Complication No 02/12/25 11:16 [employer]UC[employer].TNES Anesthesia Complication Comment: Post-operative progress note Anesthesia: Postop Eval II Evaluation Mental status: Awake and Calm Pain Level: 1 nausea: No Vomiting: No Complications Anesthesia Complication: No
== END 2025-02-12 12:11 | disposition home or self-care (01) ==
LOC: EN 08:53 → AC 08:54
PROVIDERS: PCP Family Medicine; Referring Provider Family Medicine; Visit Provider Surgery
PROC: 0DJD8ZZ Inspection of Lower Intestinal Tract, Via Natural or Artificial Opening Endoscopic (ICD-10-PCS; CPT 45378; principal; 2025-02-12 09:55)
DX: Z12.11 Encounter for screening for malignant neoplasm of colon (principal); K63.5 Polyp of colon; K64.1 Second degree hemorrhoids; K63.89 Other specified diseases of intestine; Z80.0 Family history of malignant neoplasm of digestive organs; G62.9 Polyneuropathy, unspecified; Z79.899 Other long term (current) drug therapy; K59.09 Other constipation; Q43.8 Other specified congenital malformations of intestine; K52.9 Noninfective gastroenteritis and colitis, unspecified; K64.8 Other hemorrhoids
CPT/HCPCS: 45380; 46221; 88305; C1889